=== PATIENT | male | born 1965 | race Asian ===

== ENCOUNTER 2021-04-25 15:28 | Inpatient (IN) | payer OTHER ==
[~2021-04-25] VITALS: Ht 165.1 cm; Wt 73.4 kg
[~2021-04-25 15:28] MED LIST: AMLO10CA33 PO; ASPI-394 PO; Atorvastatin Calcium PO; GLIM-5 PO; SITA100T7 PO
[2021-04-25] MEDS ORDERED: SODIUM CHLORIDE 0.9% 1,000 ML IV ONE (16:00)
[2021-04-25 16:27] LABS: Basophils # (auto) 0 10 ^3/uL (0-0.2); Basophils % (auto) 0.4 % (0.0-2.0); Eosinophils # (auto) 0.2 10 ^3/uL (0-0.8); Eosinophils % (auto) 1.9 % (0.0-7.0); Hematocrit 46.1 % (41.0-53.0); Hemoglobin 15.7 g/dL (13.5-17.5); Lymphocytes # (auto) 1.9 10 ^3/uL (0.4-5.4); Lymphocytes % (auto) 19.7 % (10.0-50.0); Mean Corpuscular Hemoglobin 27.6 pg (28.0-32.0); Mean Corpuscular Hgb Conc. 34.1 g/dL (32.0-36.0); Mean Corpuscular Volume 80.9 fL (80.0-100.0); Monocytes # (auto) 0.4 10 ^3/uL (0-1.3); Monocytes % (auto) 3.6 % (0.0-12.0); Neutrophils # (auto) 7.2 10 ^3/uL (1.6-8.6); Neutrophils % (auto) 74.4 % (37.0-80.0); Red Cell Distribution Width 14.2 % (11.8-14.3); White Blood Cell 9.7 10^3/uL (4.4-10.8)
[2021-04-25 16:45] LABS: Albumin 3.7 g/dL (3.4-5.0); Anion Gap 9 (5-15); Blood Urea Nitrogen 23 mg/dL (7-18); Calcium 9.1 mg/dL (8.5-10.1); Carbon Dioxide 26 mmol/L (21-32); Chloride 100 mmol/L (98-107); Glucose 260 mg/dL (74-106); Potassium 3.6 mmol/L (3.5-5.1); Sodium 135 mmol/L (136-145)
[2021-04-25 16:52] LABS: Alanine Aminotransferase 44 U/L (16-61); Alkaline Phosphatase 90 U/L (45-117); Aspartate Aminotransferase 23 U/L (15-37); BUN/Creatinine Ratio 18.5; Bilirubin, Total 0.7 mg/dL (0.2-1.0); GFR African American 78 mL/min; GFR Non-African American 64 mL/min
[2021-04-25] MEDS ORDERED: ACETAMINOPHEN 325 MG TAB PO ONE (17:00)
[2021-04-25 17:42] LABS: INR 1.04 (0.9-1.15); Partial Thromboplastin Time 30.7 sec (23.0-31.2)
[2021-04-25] MEDS ORDERED: NITROGLYCERIN 0.4 MG SL TAB SL PRN (18:45)
[2021-04-25] MEDS ORDERED: ACETAMINOPHEN 500 MG TAB PO PRN (18:45)
[2021-04-25] MEDS ORDERED: ONDANSETRON HCL 4 MG/2 ML VIAL IV PRN (18:45)
[2021-04-25] MEDS ORDERED: DEXTROSE (50%) 50ML SYRG IV PRN (18:45)
[2021-04-25] MEDS ORDERED: MORPHINE SULF INJ 2 MG/ML SYRINGE 1ML IV PRN (18:45)
[2021-04-25 19:18] LABS: Cholesterol 188 mg/dL (< 200)
[2021-04-25 19:21] LABS: HDL Cholesterol 38 mg/dL (40-59); LDL Cholesterol 112 mg/dL (< 100); Triglycerides 298 mg/dL (< 150)
[2021-04-25] MEDS ORDERED: CLOPIDOGREL BISULFATE 75 MG TAB PO ONE (20:30)
[2021-04-25] MEDS: ATORVASTATIN 20 MG TAB PO SCH (21:40)
[2021-04-25] MEDS ORDERED: ATORVASTATIN 20 MG TAB PO SCH (22:00)
[2021-04-25 22:23] VITALS: BP 152/92
[2021-04-25 23:30] VITALS: BP 152/92
[2021-04-25] MEDS: GABAPENTIN 100 MG CAP PO SCH (23:50)
[2021-04-25] MEDS: ACCU-CHEK COMFORT CURVE STRIP VI SCH (23:50)
[2021-04-25] MEDS: InsuLIN REG 1unit/0.01ml Soln (100units/ml) SC SCH (23:51)
[2021-04-26 05:00] VITALS: BP 137/87
[2021-04-26] MEDS: ACCU-CHEK COMFORT CURVE STRIP VI SCH ×4 (06:50→21:21)
[2021-04-26] MEDS: InsuLIN REG 1unit/0.01ml Soln (100units/ml) SC SCH ×4 (06:52→21:26)
[2021-04-26 08:01] VITALS: BP 137/87
[2021-04-26 09:00] VITALS: BP 161/78
[2021-04-26] MEDS: AMLODIPINE BESYLATE PO SCH (10:00)
[2021-04-26] MEDS ORDERED: hydrALAZINE HCL 20 MG/ML VL IV SCH (10:00)
[2021-04-26] MEDS: BENAZEPRIL PO SCH (10:00)
[2021-04-26] MEDS: ASPirin-EC 81 mg tab PO SCH (11:08)
[2021-04-26] MEDS: GABAPENTIN 100 MG CAP PO SCH ×2 (11:08→21:28)
[2021-04-26] MEDS: FAMOTIDINE 20 MG TAB PO SCH (11:08)
[2021-04-26] MEDS ORDERED: INSU100I47 SC (11:18)
[2021-04-26] MEDS ORDERED: FINA5TAB4 PO (11:18)
[2021-04-26] MEDS ORDERED: OMEP-434 PO (11:18)
[2021-04-26] MEDS ORDERED: TAMS1CAP25 PO (11:18)
[2021-04-26] MEDS ORDERED: LOSA-39 PO (11:18)
[2021-04-26] MEDS ORDERED: METF-372 PO (11:18)
[2021-04-26] MEDS ORDERED: ATOR40TA52 PO (11:18)
[2021-04-26] MEDS ORDERED: CHLO25TA2 PO (11:18)
[2021-04-26] MEDS ORDERED: hydrALAZINE HCL 20 MG/ML VL IV PRN (11:45)
[2021-04-26 13:00] VITALS: BP_SYST 143; BP_SYST 148; BP_DIAS 92
[2021-04-26 17:00] VITALS: BP_SYST 149; BP_SYST 153; BP_DIAS 83
[2021-04-26] MEDS: HYDROcodone-ACET 5/325MG TAB PO PRN (17:30)
[2021-04-26] MEDS: ATORVASTATIN 20 MG TAB PO SCH (21:28)
[2021-04-26 22:00] VITALS: BP 140/80
[2021-04-27] MEDS: HYDROcodone-ACET 5/325MG TAB PO PRN ×3 (03:35→09:34)
[2021-04-27 05:00] VITALS: BP 143/89
[2021-04-27] MEDS: ACCU-CHEK COMFORT CURVE STRIP VI SCH ×4 (06:27→21:42)
[2021-04-27] MEDS: InsuLIN REG 1unit/0.01ml Soln (100units/ml) SC SCH ×4 (06:29→21:44)
[2021-04-27 06:30] LABS: Basophils # (auto) 0 10 ^3/uL (0-0.2); Basophils % (auto) 0.4 % (0.0-2.0); Eosinophils # (auto) 0.4 10 ^3/uL (0-0.8); Hematocrit 44.2 % (41.0-53.0); Hemoglobin 15.5 g/dL (13.5-17.5); Lymphocytes # (auto) 1.9 10 ^3/uL (0.4-5.4); Lymphocytes % (auto) 20.6 % (10.0-50.0); Mean Corpuscular Hemoglobin 28.1 pg (28.0-32.0); Mean Corpuscular Hgb Conc. 35.1 g/dL (32.0-36.0); Mean Corpuscular Volume 79.9 fL (80.0-100.0); Monocytes # (auto) 0.4 10 ^3/uL (0-1.3); Monocytes % (auto) 4.3 % (0.0-12.0); Neutrophils # (auto) 6.6 10 ^3/uL (1.6-8.6); Neutrophils % (auto) 70.7 % (37.0-80.0); Nucleated Red Blood Cells % 0.1 %; Red Blood Cells 5.53 10^6/uL (4.5-5.90); Red Cell Distribution Width 13.6 % (11.8-14.3); White Blood Cell 9.4 10^3/uL (4.4-10.8)
[2021-04-27 06:42] LABS: Calcium 8.9 mg/dL (8.5-10.1); Potassium 3.6 mmol/L (3.5-5.1)
[2021-04-27 06:44] LABS: BUN/Creatinine Ratio 21.1
[2021-04-27 08:59] VITALS: BP 135/86
[2021-04-27] MEDS: GABAPENTIN 100 MG CAP PO SCH ×2 (09:32→21:42)
[2021-04-27] MEDS: ASPirin-EC 81 mg tab PO SCH (09:32)
[2021-04-27] MEDS: FAMOTIDINE 20 MG TAB PO SCH (09:33)
[2021-04-27] MEDS: AMLODIPINE BESYLATE PO SCH (09:33)
[2021-04-27] MEDS: BENAZEPRIL PO SCH (09:33)
[2021-04-27] MEDS ORDERED: LORazepam 2MG/ML-1ML VIAL IV PRN (10:30)
[2021-04-27] MEDS ORDERED: SENNA 8.6 MG TAB PO PRN (11:45)
[2021-04-27 13:00] VITALS: BP 154/96
[2021-04-27] MEDS ORDERED: CLOPIDOGREL BISULFATE 75 MG TAB PO ONE (13:30)
[2021-04-27] MEDS: MORPHINE SULF INJ 2 MG/ML SYRINGE 1ML IV PRN (13:31)
[2021-04-27 17:00] VITALS: BP 147/82
[2021-04-27 21:00] VITALS: BP 154/89
[2021-04-27] MEDS: SODIUM CHLORIDE 0.9% 1,000 ML IV SCH (21:41)
[2021-04-27] MEDS: ATORVASTATIN 20 MG TAB PO SCH (21:42)
[2021-04-28] MEDS: MORPHINE SULF INJ 2 MG/ML SYRINGE 1ML IV PRN ×2 (01:58→09:55)
[2021-04-28 05:00] VITALS: BP 147/90
[2021-04-28] MEDS: ACCU-CHEK COMFORT CURVE STRIP VI SCH ×4 (06:17→23:04)
[2021-04-28] MEDS: InsuLIN REG 1unit/0.01ml Soln (100units/ml) SC SCH ×4 (06:19→22:59)
[2021-04-28 06:43] LABS: Basophils # (auto) 0 10 ^3/uL (0-0.2); Basophils % (auto) 0.5 % (0.0-2.0); Eosinophils # (auto) 0.4 10 ^3/uL (0-0.8); Eosinophils % (auto) 4.1 % (0.0-7.0); Hematocrit 45.8 % (41.0-53.0); Hemoglobin 15.8 g/dL (13.5-17.5); Lymphocytes # (auto) 2.4 10 ^3/uL (0.4-5.4); Lymphocytes % (auto) 25.5 % (10.0-50.0); Mean Corpuscular Hgb Conc. 34.5 g/dL (32.0-36.0); Mean Corpuscular Volume 81.3 fL (80.0-100.0); Monocytes # (auto) 0.4 10 ^3/uL (0-1.3); Monocytes % (auto) 4.5 % (0.0-12.0); Neutrophils # (auto) 6.1 10 ^3/uL (1.6-8.6); Neutrophils % (auto) 65.4 % (37.0-80.0); Nucleated Red Blood Cells % 0.1 %; Red Blood Cells 5.64 10^6/uL (4.5-5.90); White Blood Cell 9.3 10^3/uL (4.4-10.8)
[2021-04-28 07:03] LABS: BUN/Creatinine Ratio 19.8; Potassium 3.8 mmol/L (3.5-5.1)
[2021-04-28 09:00] VITALS: BP 136/87
[2021-04-28] MEDS ORDERED: CLOP75TA28 PO (09:52)
[2021-04-28] MEDS: ASPirin 300 MG RECTAL SUPP PR SCH ×2 (10:00→10:44)
[2021-04-28] MEDS: FAMOTIDINE 20 MG TAB PO SCH ×2 (10:00→10:44)
[2021-04-28] MEDS: CLOPIDOGREL BISULFATE 75 MG TAB PO SCH ×2 (10:00→10:44)
[2021-04-28] MEDS: LOSARTAN POTASSIUM 50 MG TAB PO SCH (10:00)
[2021-04-28] MEDS: GABAPENTIN 100 MG CAP PO SCH ×2 (10:43→22:56)
[2021-04-28] MEDS: SODIUM CHLORIDE 0.9% 1,000 ML IV SCH (10:46)
[2021-04-28 13:00] VITALS: BP 145/87
[2021-04-28 17:00] VITALS: BP 156/101
[2021-04-28] MEDS: TAMSULOSIN HYDROCHLORIDE 0.4 MG CAP PO SCH (17:13)
[2021-04-28 22:00] VITALS: BP 145/84
[2021-04-28] MEDS: ATORVASTATIN 20 MG TAB PO SCH (22:56)
[2021-04-29] MEDS: SODIUM CHLORIDE 0.9% 1,000 ML IV SCH ×2 (00:46→12:48)
[2021-04-29] MEDS: HYDROcodone-ACET 5/325MG TAB PO PRN (02:39)
[2021-04-29 05:00] VITALS: BP 160/93
[2021-04-29] MEDS: ACCU-CHEK COMFORT CURVE STRIP VI SCH ×4 (06:44→21:25)
[2021-04-29] MEDS: InsuLIN REG 1unit/0.01ml Soln (100units/ml) SC SCH ×4 (06:56→21:25)
[2021-04-29 09:00] VITALS: BP 139/82
[2021-04-29] MEDS: FAMOTIDINE 20 MG TAB PO SCH (09:27)
[2021-04-29] MEDS: LOSARTAN POTASSIUM 50 MG TAB PO SCH (09:27)
[2021-04-29] MEDS: GABAPENTIN 100 MG CAP PO SCH ×2 (09:27→21:25)
[2021-04-29] MEDS: CLOPIDOGREL BISULFATE 75 MG TAB PO SCH (09:28)
[2021-04-29] MEDS: ASPirin 300 MG RECTAL SUPP PR SCH (09:28)
[2021-04-29 13:00] VITALS: BP 136/82
[2021-04-29 16:48] VITALS: BP 143/80
[2021-04-29] MEDS: TAMSULOSIN HYDROCHLORIDE 0.4 MG CAP PO SCH (17:02)
[2021-04-29] MEDS: ATORVASTATIN 20 MG TAB PO SCH (21:25)
[2021-04-29 22:31] VITALS: BP 124/75
[2021-04-30] MEDS: HYDROcodone-ACET 5/325MG TAB PO PRN (01:45)
[2021-04-30] MEDS: SODIUM CHLORIDE 0.9% 1,000 ML IV SCH ×2 (01:57→15:40)
[2021-04-30 05:17] VITALS: BP 137/75
[2021-04-30] MEDS: ACCU-CHEK COMFORT CURVE STRIP VI SCH ×2 (06:30→14:00)
[2021-04-30] MEDS: InsuLIN REG 1unit/0.01ml Soln (100units/ml) SC SCH ×2 (06:38→14:01)
[2021-04-30 09:00] VITALS: BP 142/87
[2021-04-30] MEDS ORDERED: ASPirin 81 mg TAB PO SCH (10:00)
[2021-04-30] MEDS: FAMOTIDINE 20 MG TAB PO SCH (10:54)
[2021-04-30] MEDS: GABAPENTIN 100 MG CAP PO SCH (10:55)
[2021-04-30] MEDS: CLOPIDOGREL BISULFATE 75 MG TAB PO SCH (10:55)
[2021-04-30] MEDS: LOSARTAN POTASSIUM 50 MG TAB PO SCH (11:03)
[2021-04-30 13:00] VITALS: BP 157/92
== END 2021-04-30 16:10 | DRG 45 ==
LOC: ER 15:28 → TELE 18:34 → TELE-CENTR 22:17
PROVIDERS: ADMIT Nurse Practitioner Acute Care; ATTEND Internal Medicine Pulmonary Disease
DX: I63.9 Cerebral infarction, unspecified (principal); E11.22 Type 2 diabetes mellitus with diabetic chronic kidney disease; E11.42 Type 2 diabetes mellitus with diabetic polyneuropathy; N18.30 Chronic kidney disease, stage 3 unspecified; I16.0 Hypertensive urgency; G81.91 Hemiplegia, unspecified affecting right dominant side; R47.81 Slurred speech; G89.29 Other chronic pain; M54.18 Radiculopathy, sacral and sacrococcygeal region; E78.5 Hyperlipidemia, unspecified; I12.9 Hypertensive chronic kidney disease with stage 1 through stage 4 chronic kidney disease, or unspecified chronic kidney disease; N40.0 Benign prostatic hyperplasia without lower urinary tract symptoms; R29.810 Facial weakness; Z20.822 Contact with and (suspected) exposure to COVID-19; Z79.02 Long term (current) use of antithrombotics/antiplatelets; Z79.4 Long term (current) use of insulin; Z79.82 Long term (current) use of aspirin; Z79.899 Other long term (current) drug therapy; Z80.1 Family history of malignant neoplasm of trachea, bronchus and lung; Z80.3 Family history of malignant neoplasm of breast; Z80.42 Family history of malignant neoplasm of prostate; Z80.8 Family history of malignant neoplasm of other organs or systems; Z81.8 Family history of other mental and behavioral disorders; Z82.0 Family history of epilepsy and other diseases of the nervous system; Z82.49 Family history of ischemic heart disease and other diseases of the circulatory system; Z82.3 Family history of stroke; Z82.62 Family history of osteoporosis; Z83.3 Family history of diabetes mellitus; Z86.73 Personal history of transient ischemic attack (TIA), and cerebral infarction without residual deficits; Z82.5 Family history of asthma and other chronic lower respiratory diseases
CPT/HCPCS: 36415; 70450; 70551; 71045; 72148; 80048; 80053; 80061; 82962; 83036; 83735; 84484; 85025; 85049; 85610; 85730; 87426; 92610; 93005; 93306; 93886; 96360; 96361; 97110; 97163; 97530; 99291; G0378; J1815

== ENCOUNTER 2023-05-26 11:12 | Emergency (ER) | payer OTHER ==
[~2023-05-26] VITALS: Ht 165.1 cm; Wt 74.0 kg
[~2023-05-26 11:12] MED LIST changes: -AMLO10CA33 PO; +AMLO1CAP56 PO; +ATOR40TA52 PO; +CHLO25TA2 PO; +CLOP75TA28 PO; +FINA5TAB4 PO; +GLIM-38 PO; -GLIM-5 PO; +INSU100I47 SC; +LOSA100T58 PO; +METF-372 PO; +OMEP-434 PO; +TAMS1CAP25 PO
[2023-05-26 11:56] LABS: Eosinophils # (auto) 0.3 10 ^3/uL (0-0.8); Lymphocytes # (auto) 2.2 10 ^3/uL (0.4-5.4); Lymphocytes % (auto) 23.4 % (10.0-50.0); Monocytes # (auto) 0.3 10 ^3/uL (0-1.3); Monocytes % (auto) 3.4 % (0.0-12.0); Neutrophils # (auto) 6.6 10 ^3/uL (1.6-8.6); Red Cell Distribution Width 15.1 % (11.8-14.3)
[2023-05-26 11:58] LABS: Basophils # (auto) 0 10 ^3/uL (0-0.2); Basophils % (auto) 0.3 % (0.0-2.0); Eosinophils % (auto) 2.9 % (0.0-7.0); Hematocrit 42.1 % (41.0-53.0); Hemoglobin 13.9 g/dL (13.5-17.5); Mean Corpuscular Hemoglobin 26.7 pg (28.0-32.0); Mean Corpuscular Volume 80.9 fL (80.0-100.0); Nucleated Red Blood Cells % 0.1 %; White Blood Cell 9.4 10^3/uL (4.4-10.8)
[2023-05-26 12:13] LABS: Partial Thromboplastin Time 34.7 SEC (24.5-34.5)
[2023-05-26 12:19] LABS: Albumin 3.7 g/dL (3.4-5.0); Calcium 9.1 mg/dL (8.5-10.1); Magnesium 2.6 mg/dL (1.6-2.6); Potassium 4.1 mmol/L (3.5-5.1)
[2023-05-26 12:35] LABS: BUN/Creatinine Ratio 23.7 (10.0-20.0); Bilirubin, Total 0.5 mg/dL (0.2-1.0); Total Protein 7.7 g/dL (6.4-8.2)
[2023-05-26] MEDS ORDERED: SODIUM CHLORIDE 0.9% 1,000 ML IV ONE (13:15)
[2023-05-26] MEDS ORDERED: CYCLOBENZAPRINE HCL 10 MG TAB PO ONE (13:15)
[2023-05-26] MEDS ORDERED: DexAMETHasone SOD PHOS 10MG/1ML VIAL INJ IV ONE (13:15)
[2023-05-26 14:13] LABS: Urine WBC None Seen /hpf (0 - 3)
[2023-05-26 14:26] LABS: Urine Bacteria NONE SEEN /hpf (None Seen); Urine Blood Negative /uL (Negative); Urine Specific Gravity 1.017 (1.001-1.035)
[2023-05-26] MEDS ORDERED: CYCL-614 PO (14:34)
[2023-05-26] MEDS ORDERED: PRED20TA2 PO (14:34)
[2023-05-26 15:20] VITALS: BP 156/55; PULSE 82; RESP 20; TEMP 98.2; O2SAT 95
== END 2023-05-26 15:39 | disposition home or self-care (01) ==
LOC: ER 11:12
DX: M54.2 Cervicalgia (principal); G62.9 Polyneuropathy, unspecified; E11.9 Type 2 diabetes mellitus without complications; E78.5 Hyperlipidemia, unspecified; I10 Essential (primary) hypertension; Z79.899 Other long term (current) drug therapy; Z86.73 Personal history of transient ischemic attack (TIA), and cerebral infarction without residual deficits; Z79.84 Long term (current) use of oral hypoglycemic drugs; Z79.82 Long term (current) use of aspirin
CPT/HCPCS: 36415; 70450; 71045; 72125; 80053; 81001; 82962; 83735; 83880; 84484; 85025; 85610; 85730; 93005; 96361; 96374; 99285; J1100; J7030

== ENCOUNTER 2024-10-13 19:26 | Inpatient (IN) | payer MEDICARE, OTHER ==
[~2024-10-13] VITALS: Ht 165.1 cm; Wt 70.4 kg
[~2024-10-13 19:26] MED LIST changes: +CYCL-614 PO; +LOSA-535 PO; -LOSA100T58 PO; +PRED20TA2 PO
--- NOTE | 2024-10-13 19:46 | ECG ---
[facility] Test Date: 2024-10-13 Test Time: 19:40:10 Pat Name: YANIRA CARDENAS Department: ED Room: [address] [place] [address] Gender: M Net Manager: KEYUR : 1965 Requested By: BECCA MIRANDA Order Number: [id number] Reading MD: Paolo Silver Measurements Intervals [place] Rate: 113 P: 10 DC: 145 QRS: 25 QRSD: 80 T: 35 QT: 361 QTc: 495 Interpretive Statements Sinus tachycardia Low voltage, extremity and precordial leads Anteroseptal infarct, old Electronically Signed On 10-18-2024 10:02:03 PST by Paolo Silver Please click the below link to view image of tracing.
--- NOTE | 2024-10-13 20:42 | DVH ---
CHEST RADIOGRAPH Indication: SOB Technique: Single frontal view of the chest was obtained Comparison: XY CHEST XRAY 1 VIEW on DOS: 05/26/23 Findings/ IMPRESSION: Moderate cardiomegaly. Left basilar atelectasis with developing airspace disease not excluded.
--- NOTE | 2024-10-13 20:47 | DVH ---
Exam: CT CT AB PEL WO CON-NO ORAL OR IV History: Abdominal pain Comparison Study: None available at time of dictation. TECHNIQUE: Multidetector CT of the abdomen was performed from lung bases to pubic symphysis. Imaging was performed without IV contrast. Axial, coronal and sagittal multiplanar reformats were obtained fr om the axial data set by the technologist. Radiation Dose Information: CT Dose: CTDI volume is 6.71 mGy. Dose-length product is 395.0 mGy*cm FINDINGS: Evaluation of solid organs is limited due to lack of intravenous contrast use. Findings: Lung Bases: No acute or significant lung base finding. Normal heart size. Large pericardial effusion . Calcified coronary arteries. Liver: The liver is normal in size. No focal lesions. Gallbladder and Biliary Tree: Unremarkable Spleen: Unremarkable Pancreas: The pancreas is grossly normal in appearance. Adrenal Glands: Unremarkable Kidneys: Kidneys are grossly normal without calculi or hydronephrosis. Bladder: Grossly unremarkable for degree of distention. Bowel: The stomach is grossly normal in appearance. Small bowel and colon are normal in caliber and d istribution. The appendix is not visualized; however, no secondary findings of acute appendicitis id entified. Ascites: Absent Lymphadenopathy: No mesenteric, retroperitoneal or periportal lymphadenopathy. Abdominal Wall and Mesentery: Unremarkable. Vasculature: The visualized abdominal aorta is normal in size and caliber. Evaluation of abdominal a nd pelvic vessels is limited due to lack of intravenous contrast. Pelvic Organs: Unremarkable Musculoskeletal: No aggressive focal bony lesions, acute fractures or dislocation. Soft tissues: Unremarkable IMPRESSION: 1. Large pericardial effusion. 2. Calcified coronary arteries. 3. No CT findings suggest bowel obstruction. Radiation optimization: All CT scans at this facility use at least one of these dose optimization te chniques: automated exposure control mA and/or kV adjustment per patient size (includes targeted exa ms where dose is matched to clinical indication) or iterative reconstruction.
--- NOTE | 2024-10-13 20:53 | ED.PDOC ---
SOB-HPI HPI Comments 59-year-old male with past medical history pertinent for HTN, DM, CVA, hyp erlipidemia, presents to ED for shortness of breath x2 days, associated with cough, headache, epigastric pain, fatigue, fever, chills. Patient denies any chest pain, nausea, vomiting, diarrhea. He denies any recent sick contacts. Patient reports that his shortness of breath is worse when laying down at nighttime. No alleviating or aggravating factors. Chief Complaint: Shortness of Breath Time Seen by MD: 19:32 Primary Care Provider: ? Reviewed notes: Nurses Notes, Medications, Allergies Mode of Arrival: Wheelchair Past Medical History PAST MEDICAL HISTORY: CVA, DM, High Lipids, HTN, TIA Surgical History: Denies all surgeries Family History Family History: Unobtainable Social History Smoker: Non-Smoker Alcohol: Denies ETOH Use Drugs: Denies Drug Use Lives In: Home Constitutional: reports: chills, fatigue, fever; denies: diaphoresis, malaise, sweats, weakness, others EENTM: denies: blurred vision, double vision, ear bleeding, ear discharge, ear drainage, ear pain, ear ringing, eye pain, eye redness, hearing loss, mouth pain, mouth swelling, nasal discharge, nose bleeding, nose congestion, nose pain, photophobia, tearing, throat pain, throat swelling, voice changes, others Respiratory: reports: cough, shortness of breath; denies: hemoptysis, orthopnea, SOB at rest, SOB with excertion, stridor, wheezing, others Cardiovascular: denies: chest pain, dizzy spells, diaphoresis, Dyspnea on exertion, edema, irregular heart beat, left arm pain, lightheadedness, palpitations, PND, syncope, others Gastrointestinal: reports: abdominal pain; denies: abdomen distended, blood streaked bowels, constipated, diarrhea, dysphagia, difficulty swallowing, hematemesis, melena, nausea, poor appetite, poor fluid intake, rectal bleeding, rectal pain, vomiting, others Genitourinary: denies: burning, dysuria, flank pain, frequency, hematuria, incontinence, penile discharge, penile sore, pain, testicle pain, testicle swelling, urgency, others Neurological: denies: dizziness, fainting, headache, left sided numbness, left sided weakness, numbness, paresthesia, pre-existing deficit, right sided numbne ss, right sided weakness, seizure, speech problems, tingling, tremors, weakness, others Musculoskeletal: denies: back pain, gout, joint pain, joint swelling, muscle pain, muscle stiffness, neck pain, others Integumetry: denies: bruises, change in color, change in hair/nails, dryness, laceration, lesions, lumps, rash, wounds, others Allergic/Immunocompromised: denies: Difficulty Healing, Frequent Infections, Hives, Itching, others Hematologic/Lymphatic: denies: anemia, blood clots, easy bleeding, easy bruising, swollen glands, others Endocrine: denies: excessive hunger, excessive sweating, excessive thirst, excessive urination, flushing, intolerance to cold, intolerance to heat, unexplained weight gain, unexplained weight loss, others Psychiatric: denies: anxiety, bipolar disorder, depression, hopeless, panic disorder, schizophrenia, sleepless, suicidal, others All Other Systems: Reviewed and Negative Physical Exam General Appearance: Mild Distress, Normal HEENT: Normal ENT Inspection, Pharynx Normal, TMs Normal Neck: Full Range of Motion, Non-Tender, Normal, Normal Inspection Respiratory: Chest Non-Tender, No Accessory Muscle Use, No Respiratory Distress, Other (Decreased breath sounds to the left.) Cardiovascular: No Edema, No JVD, No Murmur, No Gallop, Normal Peripheral Pulses, Regular Rate/Rhythm Breast Exam: Deferred Gastrointestinal: No Organomegaly, No Pulsatile Mass, Normal Bowel Sounds, Soft, Tenderness (Tenderness to palpation to the epigastric region.) Genitalia: Deferred Pelvic: Deferred Rectal: Deferred Extremities: No calf tenderness, Normal capillary refill, Normal inspection, Normal range of motion, Non-tender, No pedal edema Musculoskeletal : Apperance: Normal Neurologic: Alert, emergency medicine physician assistant II-XII nml as Tested, No Motor Deficits, Normal Affect, Normal Mood, No Sensory Deficits Cerebellar Function: Normal Reflexes: Normal Skin: Dry, Normal Color, Warm Lymphatic: No Adenopathy Was a procedure done? Was a procedure done?: No Differential Dx Differential Diagnosis: Bronchitis, CHF, COPD, Pneumonia, Respiratory Distress, URI X-Ray, Labs, Meds, VS Vital Signs Date Time Temp Pulse Resp B/P (MAP) Pulse Ox O2 Delivery O2 Flow Rate FiO2 12/15/24 22:12 114 10/13/24 22:12 97.5 114 29 150/98 (115) 96 97.5 10/13/24 19:46 18 96 Room Air* 0 21 10/13/24 19:41 97.5 110 18 153/94 (113) 96 10/13/24 19:40 113 Lab Test 10/13/24 21:35 10/13/24 20:37 Range/Units Troponin I High Sensitivity 20 18 </=54 ng/L White Blood Count 9.6 4.4-10.8 10^3/uL Red Blood Count 5.12 4.5-5.90 10^6/uL Hemoglobin 13.7 13.5-17.5 g/dL Hematocrit 41.7 41.0-53.0 % Mean Corpuscular Volume 81.5 80.0-100.0 fL Mean Corpuscular Hemoglobin 26.7 L 28.0-32.0 pg Mean Corpuscular Hemoglobin Concent 32.8 32.0-36.0 g/dL Red Cell Distribution Width 17.8 H 11.8-14.3 % Platelet Count 222 140-450 10^3/uL Mean Platelet Volume 9.0 6.9-10.8 fL Neutrophils (%) (Auto) 86.0 H 37.0-80.0 % Lymphocytes (%) (Auto) 10.9 10.0-50.0 % Monocytes (%) (Auto) 2.6 0.0-12.0 % Eosinophils (%) (Auto) 0.3 0.0-7.0 % Basophils (%) (Auto) 0.2 0.0-2.0 % Neutrophils # (Auto) 8.3 1.6-8.6 10 ^3/uL Lymphocytes # (Auto) 1.1 0.4-5.4 10 ^3/uL Monocytes # (Auto) 0.2 0-1.3 10 ^3/uL Eosinophils # (Auto) 0 0-0.8 10 ^3/uL Basophils # (Auto) 0 0-0.2 10 ^3/uL Nucleated Red Blood Cells 0.0 % Sodium Level 134 L 136-145 mmol/L Potassium Level 4.4 3.5-5.1 mmol/L Chloride Level 103 98-107 mmol/L Carbon Dioxide Level 23 20-31 mmol/L Anion Gap 8 5-15 Blood Urea Nitrogen 27 H 9-23 mg/dL Creatinine 2.02 H 0.700-1.30 mg/dL Glomerular Filtration Rate Calc 37 >90 mL/min BUN/Creatinine Ratio 13.4 10.0-20.0 Serum Glucose 293 H 74-106 mg/dL Calcium Level 9.9 8.7-10.4 mg/dL Total Bilirubin 0.5 0.2-1.0 mg/dL Aspartate Amino Transferase (AST) 28 13-40 U/L Alanine Aminotransferase (ALT) 39 7-40 U/L Alkaline Phosphatase 128 H 46-116 U/L B-Type Natriuretic Peptide 168.12 0-100 pg/mL Total Protein 7.4 5.7-8.2 g/dL Albumin 4.3 3.2-4.8 g/dL Lipase 64 H 12-53 U/L Current Medications Medications (Trade) Dose Ordered Sig/Naveen Route Start Time Stop Time Status Last Admin Acetaminophen/ Hydrocodone Bitart ([place] 5/325MG Tab) 1 tab ONCE ONCE PO 10/13/24 22:00 10/13/24 22:03 DC 10/13/24 22:19 X-Ray, Labs, Meds, VS Comment CXR IMPRESSION: Moderate cardiomegaly. Left basilar atelectasis with developing airspace disease not excluded. CT IMPRESSION: 1. Large pericardial effusion. 2. Calcified coronary arteries. 3. No CT findings suggest bowel obstruction. MDM: Patient with history as above presented with shortness of breath. History obtained from patient. Patient was nontoxic, stable, afebrile, in wheelchair, mild distress. Exam as above. Labs reviewed. CBC was unremarkable. No leukocytosis. No anemia. CMP showed mildly decreased sodium at 134. BUN elevated at 27. Creatinine elevated at 168.12 BNP elevated at 168.12. Lipase elevated at 64. Troponin x1 was negative. Independently reviewed imaging. Chest x-ray showed cardiomegaly with left basilar atelectasis versus airspace disease. CT abdomen/pelvis showed a large large pericardial effusion. No acute abdominal findings. Reviewed external records. All findings were discussed with the patient. Differential diagnosis considered. Overall presentation is consistent with MARIBEL, pericardial effusion, and possible pancreatitis. Low suspicion for pulmonary embolism, pneumonia, ACS. Ordered [place] for the patient in the ED. Patient placed on continuous EKG monitoring, continuous pulse oximetry, and peripheral intravenous access. Patient will be admitted to the hospital for pericardial effusion, acute MARIBEL, pancreatitis. Cardiology consult has been placed for large pericardial effusion. Disposition: Admit This medical document was created using the Eversight dictation system. Although this document has been carefully reviewed, there may still be some phonetic and typographical errors, which are due to imperfections of the software program, and do not reflect any compromise in the patient's medical care. Time of 1ST Reevaluation: 21:57 Reevaluation 1ST: Improved Patient Education/Counseling: Diagnosis, Treatment, Prognosis, Need For Follow Up Family Education/Counseling: Diagnosis, Treatment, Prognosis, Need For Follow Up Departure 1 Departure Time of Disposition: 21:58 Impression: Primary Impression: Pericardial effusion Additional Impressions: Pancreatitis Qualified Codes: K85.90 - Acute pancreatitis without necrosis or infection, unspecified MARIBEL (acute kidney injury) Disposition: 09 ADMITTED INPATIENT Condition: Fair Critical Care Note Critical Care Time?: No Stability Stability form required: No Heart Score Heart Score: Heart Score Response (Comments) Value History N/A 0 EKG N/A 0 Age N/A 0 Risk Factors N/A 0 Troponin N/A 0 Total 0 BECCA MIRANDA PAC Oct 13, 2024 20:53
[2024-10-13 20:57] LABS: Basophils # (auto) 0 10 ^3/uL (0-0.2); Basophils % (auto) 0.2 % (0.0-2.0); Eosinophils # (auto) 0 10 ^3/uL (0-0.8); Eosinophils % (auto) 0.3 % (0.0-7.0); Lymphocytes # (auto) 1.1 10 ^3/uL (0.4-5.4); Lymphocytes % (auto) 10.9 % (10.0-50.0); Monocytes # (auto) 0.2 10 ^3/uL (0-1.3)
[2024-10-13 20:58] LABS: Hematocrit 41.7 % (41.0-53.0); Hemoglobin 13.7 g/dL (13.5-17.5); Mean Corpuscular Hemoglobin 26.7 pg (28.0-32.0); Mean Corpuscular Hgb Conc. 32.8 g/dL (32.0-36.0); Mean Corpuscular Volume 81.5 fL (80.0-100.0); Monocytes % (auto) 2.6 % (0.0-12.0); Neutrophils # (auto) 8.3 10 ^3/uL (1.6-8.6); Platelet Count (auto) 222 10^3/uL (140-450); Red Blood Cells 5.12 10^6/uL (4.5-5.90); Red Cell Distribution Width 17.8 % (11.8-14.3); White Blood Cell 9.6 10^3/uL (4.4-10.8)
[2024-10-13 21:07] LABS: Alanine Aminotransferase 39 U/L (7-40); Albumin 4.3 g/dL (3.2-4.8); Anion Gap 8 (5-15); Aspartate Aminotransferase 28 U/L (13-40); BUN/Creatinine Ratio 13.4 (10.0-20.0); Calcium 9.9 mg/dL (8.7-10.4); Carbon Dioxide 23 mmol/L (20-31); Chloride 103 mmol/L (98-107); Potassium 4.4 mmol/L (3.5-5.1)
[2024-10-13 21:08] LABS: Bilirubin, Total 0.5 mg/dL (0.2-1.0); Total Protein 7.4 g/dL (5.7-8.2)
[2024-10-13 21:09] LABS: Alkaline Phosphatase 128 U/L (46-116); Blood Urea Nitrogen 27 mg/dL (9-23); Glucose 293 mg/dL (74-106); Sodium 134 mmol/L (136-145)
[2024-10-13 21:25] LABS: Lipase 64 U/L (12-53)
[2024-10-13] MEDS ORDERED: MORPHINE SULFATE 4 MG/ML SYR/VIAL IV ONE (21:45)
[2024-10-13] MEDS ORDERED: ONDANSETRON HCL 4 MG/2 ML VIAL IV ONE (21:45)
[2024-10-13 22:12] VITALS: PULSE 114
[2024-10-13] MEDS: HYDROcodone-ACET 5/325MG TAB PO ONE (22:19)
[2024-10-13] MEDS ORDERED: DEXTROSE (50%) 50ML SYRG IV PRN (22:45)
[2024-10-13] MEDS ORDERED: ONDANSETRON HCL 4 MG/2 ML VIAL IV PRN (22:45)
[2024-10-13] MEDS ORDERED: ACETAMINOPHEN 325 MG TAB PO PRN (22:45)
[2024-10-13 23:04] VITALS: BP 150/98; PULSE 114; RESP 24; TEMP 97.5; O2SAT 97
[2024-10-13] MEDS: ACCU-CHEK COMFORT CURVE STRIP VI SCH (23:54)
[2024-10-13] MEDS: InsuLIN REG 1unit/0.01ml Soln (100units/ml) SC SCH (23:55)
[2024-10-14] VITALS (15 sets, daily range): BP systolic 99–126; BP diastolic 74–81; PULSE 105–113; RESP 17–27; TEMP 97.9; O2SAT 94–100
[2024-10-14] MEDS: ALBUTEROL SULF 2.5 MG/0.5ML(0.5%) NEB SOLN NEB PRN (00:07)
--- NOTE | 2024-10-14 04:14 | DVHHP2 ---
History of Present Illness Reason for Visit: Shortness of breath History of Present Illness 59-year-old male presents for evaluation of shortness for breath. Patient reports a two day history of unprovoked shortness for breath with associated fatigue. Denies chest pain or palpitations. Denies fever or chills. Patient reports symptoms becoming worse when laying down. Past Medical History Dyslipidemia, hypertension, diabetes mellitus, CVA Past Surgical History Denies Family History Noncontributory Smoke: No ALCOHOL: none Drugs: None Lives: with Family Review of Systems Review of Systems Review of systems are currently negative otherwise addressed in HPI. Allergies: Coded Allergies: NO KNOWN ALLERGIES (Unverified , 04/25/21) Medications Current Medications Medications Dose Ordered Sig/Naveen Route Start Time Stop Time Status Last Admin Dose Admin Amlodipine Besylate 5 mg DAILY PO 10/14/24 10:00 Aspirin 81 mg DAILY PO 10/14/24 10:00 Atorvastatin Calcium 40 mg HS PO 10/14/24 22:00 Clopidogrel Bisulfate 75 mg DAILY PO 10/14/24 10:00 Albuterol 2.5 mg Q6HPRN PRN NEB 10/13/24 22:45 10/14/24 00:07 2.5 MG Diagnostic Test (Pha) 1 strip Q6HR 10/14/24 00:00 10/13/24 23:54 1 STRIP Insulin Human Regular Q6HR SC 10/14/24 00:00 10/13/24 23:55 6 UNITS Dextrose 50 ml UD PRN IV 10/13/24 22:45 Ondansetron HCl 4 mg Q4HP PRN IV 10/13/24 22:45 Acetaminophen 650 mg Q6HP PRN PO 10/13/24 22:45 Exam Vital Signs Vital Signs Date Time Temp Pulse Resp B/P (MAP) Pulse Ox O2 Delivery O2 Flow Rate FiO2 10/14/24 00:13 107 20 99 10/14/24 00:07 Room Air 10/14/24 00:07 0 21 10/14/24 00:00 141/97 (112) 10/13/24 23:04 97.5 97.5 Exam Gen: 59-year-old male in mild distress Skin: Warm, dry, normal color and texture, no rash. HEENT: Normocephalic atraumatic, mucous membranes moist and pink. Neck: Cervical and supraclavicular nodes normal without enlargement, trachea is midline, thyroid gland is normal without masses. Pulmonary: Clear to auscultation and percussion bilaterally. Cardiac: Regular rate and rhythm. No murmur Abdomen: Soft, nontender, nondistended, bowel sounds present all 4 quadrants, no guarding, no rigidity, no organomegaly. Extremities: No cyanosis, clubbing, no edema Neuro: Cranial nerves II through XII grossly intact, normal affect and speech, no focal motor deficits. Labs/Xrays ORDERING PHYSICIAN: BECCA MIRANDA PAC PROCEDURE(s): ABPL - CT AB PEL WO CON-NO ORAL OR IV REASON: Abdominal pain ORDER NUMBER(s): [id number], ACCESSION NUMBER(s): [id number] Exam: CT CT AB PEL WO CON-NO ORAL OR IV History: Abdominal pain Comparison Study: None available at time of dictation. TECHNIQUE: Multidetector CT of the abdomen was performed from lung bases to pubic symphysis. Imaging was performed without IV contrast. Axial, coronal and sagittal multiplanar reformats were obtained from the axial data set by the technologist. Radiation Dose Information: CT Dose: CTDI volume is 6.71 mGy. Dose-length product is 395.0 mGy*cm FINDINGS: Evaluation of solid organs is limited due to lack of intravenous contrast use. Findings: Lung Bases: No acute or significant lung base finding. Normal heart size. Large pericardial effusion. Calcified coronary arteries. Liver: The liver is normal in size. No focal lesions. Gallbladder and Biliary Tree: Unremarkable Spleen: Unremarkable Pancreas: The pancreas is grossly normal in appearance. Adrenal Glands: Unremarkable Kidneys: Kidneys are grossly normal without calculi or hydronephrosis. Bladder: Grossly unremarkable for degree of distention. Bowel: The stomach is grossly normal in appearance. Small bowel and colon are normal in caliber and distribution. The appendix is not visualized; however, no secondary findings of acute appendicitis identified. Ascites: Absent Lymphadenopathy: No mesenteric, retroperitoneal or periportal lymphadenopathy. Abdominal Wall and Mesentery: Unremarkable. Vasculature: The visualized abdominal aorta is normal in size and caliber. Evaluation of abdominal and pelvic vessels is limited due to lack of intravenous contrast. Pelvic Organs: Unremarkable Musculoskeletal: No aggressive focal bony lesions, acute fractures or dislocation. Soft tissues: Unremarkable IMPRESSION: 1. Large pericardial effusion. 2. Calcified coronary arteries. 3. No CT findings suggest bowel obstruction. Radiation optimization: All CT scans at this facility use at least one of these dose optimization techniques: automated exposure control mA and/or kV adjustment per patient size (includes targeted exams where dose is matched to clinical indication) or iterative reconstruction. RING PHYSICIAN: BECCA MIRANDA PAC PROCEDURE(s): CXR1 - CHEST XRAY 1 VIEW REASON: SOB ORDER NUMBER(s): [id number], ACCESSION NUMBER(s): [id number] CHEST RADIOGRAPH Indication: SOB Technique: Single frontal view of the chest was obtained Comparison: XY CHEST XRAY 1 VIEW on DOS: 05/26/23 Findings/ IMPRESSION: Moderate cardiomegaly. Left basilar atelectasis with developing airspace disease not excluded. Labs Test 10/13/24 23:49 10/13/24 23:30 10/13/24 20:37 Range/Units POC Glucose 282 H 70-106 mg/dl Troponin I High Sensitivity 21 </=54 ng/L White Blood Count 9.6 4.4-10.8 10^3/uL Red Blood Count 5.12 4.5-5.90 10^6/uL Hemoglobin 13.7 13.5-17.5 g/dL Hematocrit 41.7 41.0-53.0 % Mean Corpuscular Volume 81.5 80.0-100.0 fL Mean Corpuscular Hemoglobin 26.7 L 28.0-32.0 pg Mean Corpuscular Hemoglobin Concent 32.8 32.0-36.0 g/dL Red Cell Distribution Width 17.8 H 11.8-14.3 % Platelet Count 222 140-450 10^3/uL Mean Platelet Volume 9.0 6.9-10.8 fL Neutrophils (%) (Auto) 86.0 H 37.0-80.0 % Lymphocytes (%) (Auto) 10.9 10.0-50.0 % Monocytes (%) (Auto) 2.6 0.0-12.0 % Eosinophils (%) (Auto) 0.3 0.0-7.0 % Basophils (%) (Auto) 0.2 0.0-2.0 % Neutrophils # (Auto) 8.3 1.6-8.6 10 ^3/uL Lymphocytes # (Auto) 1.1 0.4-5.4 10 ^3/uL Monocytes # (Auto) 0.2 0-1.3 10 ^3/uL Eosinophils # (Auto) 0 0-0.8 10 ^3/uL Basophils # (Auto) 0 0-0.2 10 ^3/uL Nucleated Red Blood Cells 0.0 % Sodium Level 134 L 136-145 mmol/L Potassium Level 4.4 3.5-5.1 mmol/L Chloride Level 103 98-107 mmol/L Carbon Dioxide Level 23 20-31 mmol/L Anion Gap 8 5-15 Blood Urea Nitrogen 27 H 9-23 mg/dL Creatinine 2.02 H 0.700-1.30 mg/dL Glomerular Filtration Rate Calc 37 >90 mL/min BUN/Creatinine Ratio 13.4 10.0-20.0 Serum Glucose 293 H 74-106 mg/dL Calcium Level 9.9 8.7-10.4 mg/dL Total Bilirubin 0.5 0.2-1.0 mg/dL Aspartate Amino Transferase (AST) 28 13-40 U/L Alanine Aminotransferase (ALT) 39 7-40 U/L Alkaline Phosphatase 128 H 46-116 U/L B-Type Natriuretic Peptide 168.12 0-100 pg/mL Total Protein 7.4 5.7-8.2 g/dL Albumin 4.3 3.2-4.8 g/dL Lipase 64 H 12-53 U/L Assessment/Plan Assessment/Plan Assessment Large pleural effusion Diabetes mellitus Hypertension Acute on chronic renal failure Plan Admit the patient to telemetry to the hospitalist Cardiology consultation placed by ER provider Radiology consult Nephrology consultation Resume home medications Continue treatment per orders. Plan discussed with: Patient My Orders Orders - DIEGO HARPER AGACNP Procedure Category Date Status Time *Dr. Rodriguez Group CONS 10/13/24 Transmitted -[place] 22:41 * Radiologist Consult CONS 10/13/24 Transmitted 22:41 Amlodipine Tablet PHA 10/14/24 In Process (Norvasc Tablet) 10:00 Aspirin Tablet PHA 10/14/24 In Process 10:00 Atorvastatin (Lipitor) PHA 10/14/24 In Process 22:00 Clopidogrel Bisulfate PHA 10/14/24 In Process (Plavix) 10:00 Consistent DIET 10/14/24 Transmitted Carb(Ccho)Diabetes Breakfast Albuterol Medneb PHA 10/13/24 In Process (Ventolin Medneb) 22:45 Basic Metabolic Panel LAB 10/14/24 Logged 04:00 Glucose Blood PHA 10/14/24 In Process (Accu-Chek Comfort 00:00 Insulin R (Human) PHA 10/14/24 In Process (Insulin R) 00:00 Dextrose 50% Syringe PHA 10/13/24 In Process 22:45 Admit ADMIT 10/13/24 Transmitted 22:41 Ondansetron Hcl PHA 10/13/24 In Process (Zofran) 22:45 Echo 2d Mode Cardiac US 10/13/24 Logged DOP 22:41 Condition: Stable GAETANO 10/13/24 In Process 22:41 Acetaminophen Tablet PHA 10/13/24 In Process (Tylenol Tablet) 22:45 Bedrest With Bathroom GAETANO 10/13/24 In Process Privileg 22:41 Date of Service: Oct 13, 2024 Billing Provider: DIEGO HARPER Common Visit Codes: [id number] INP/OBS CARE (HIGH) DIEGO HARPER Oct 14, 2024 04:14
[2024-10-14 04:36] LABS: Chloride 105 mmol/L (98-107); Potassium 4.1 mmol/L (3.5-5.1)
[2024-10-14 04:37] LABS: Anion Gap 10 (5-15); Calcium 9.7 mg/dL (8.7-10.4); Carbon Dioxide 20 mmol/L (20-31)
[2024-10-14 04:42] LABS: BUN/Creatinine Ratio 13.7 (10.0-20.0)
[2024-10-14 04:48] LABS: Blood Urea Nitrogen 25 mg/dL (9-23); Glucose 219 mg/dL (74-106); Sodium 135 mmol/L (136-145)
[2024-10-14] MEDS: HYDROcodone-ACET 5/325MG TAB PO PRN (07:02)
[2024-10-14] MEDS: INSULIN LANTUS (GLARGINE) 1 /0.01ml (100units/ml) SC ONE (09:18)
[2024-10-14] MEDS ORDERED: ASPirin 81 mg TAB PO SCH (10:00)
[2024-10-14] MEDS ORDERED: CLOPIDOGREL BISULFATE 75 MG TAB PO SCH (10:00)
--- NOTE | 2024-10-14 10:14 | DVHINCON2 ---
Date of service: Oct 14, 2024 Referring Physician Sebastian Ruiz, nurse practitioner Reason for Consultation Acute kidney injury History of Present Illness Patient is a 59-year-old male with past medical history significant fo CVA, DM, High Lipids, HTN, and TIA is admitted for shortness of breath for two days. On admission patient found to have elevated BUN creatinine nephrology is consulted for acute kidney injury Past Medical History PAST MEDICAL HISTORY: CVA, DM, High Lipids, HTN, TIA, gout, Chronic Kidney Disease stage IIIB Past Surgical History Surgical History: Denies all surgeries Allergies: Coded Allergies: NO KNOWN ALLERGIES (Unverified , 04/25/21) Home Meds Active Scripts Cyclobenzaprine HCl (Cyclobenzaprine Hydrochlo) 5 Mg Tab, 5 MG PO Q8HPRN PRN, #14 TAB Prov:ANTELMO LO MD 05/26/23 Prednisone (Prednisone) 20 Mg Tab, 60 MG PO DAILY, #15 MG Prov:ANTELMO LO MD 05/26/23 Clopidogrel Bisulfate (Plavix) 75 Mg Tab, 75 MG PO DAILY for 30 Days, #30 TAB Prov:CARL PARKER MD 04/28/21 Aspirin (Aspir-Low Ec) 81 Mg Tb, 81 MG PO DAILY, #30 TAB Prov:DAVID HIGUERA M.D. 08/06/14 Glimepiride (Glimepiride) 1 Mg Tab, 1 MG PO DAILY, #30 TAB Prov:DAVID HIGUERA M.D. 08/06/14 [Atorvastatin Calcium] 20 MG TB No Conflict Check, 20 MG PO HS, #30 TAB Prov:DAVID HIGUERA M.D. 08/06/14 Reported Medications Losartan Potassium (Losartan Potassium) 100 Mg Tab, 1 TAB PO DAILY, #30 TAB 5 Refills 04/26/21 Insulin NPH (Human) (Isophane) (Novolin N Flexpen) 100 Unit/Ml Inj, 100 UNIT SC, INJ 04/26/21 Atorvastatin Calcium (ATORVASTATIN CALCIUM) 40 Mg Tab, 1 TAB PO DAILY, #30 TAB 5 Refills 04/26/21 Omeprazole Magnesium (Omeprazole) 20 Mg Tab, 20 MG PO DAILYPRN, TAB 04/26/21 Metformin Hydrochloride (Metformin Hcl) 1,000 Mg Tab, 1 TAB PO BID, #60 TAB 5 Refills 04/26/21 Chlorthalidone (Chlorthalidone) 25 Mg Tab, 25 MG PO DAILY, TAB 04/26/21 Finasteride (Finasteride) 5 Mg Tab, 1 TAB PO DAILY, #30 TAB 11 Refills 04/26/21 Tamsulosin HCl (Tamsulosin Hydrochloride) 0.4 Mg Cap, 0.4 MG PO DAILY, CAP 04/26/21 Amlodipine Besylate-Benazepril (AMLODIPINE BESYLATE/BENAZ) 1 Cap Cap, 1 CAP PO DAILY, #30 CAP 5 Refills 08/04/14 Sitagliptin Phosphate (Januvia) 100 Mg Tab, 1 TAB PO DAILY, #30 TAB 5 Refills 08/04/14 Current Medications Current Medications Medications (Trade) Dose Ordered Sig/Naveen Route PRN Reason Start Time Stop Time Status Last Admin Amlodipine Besylate (Norvasc Tablet) 5 mg DAILY PO 10/14/24 10:00 10/14/24 10:21 Aspirin 81 mg DAILY PO 10/14/24 10:00 Hold Atorvastatin Calcium (Lipitor) 40 mg HS PO 10/14/24 22:00 Clopidogrel Bisulfate (Plavix) 75 mg DAILY PO 10/14/24 10:00 Hold Albuterol (Ventolin Medneb) 2.5 mg Q6HPRN PRN NEB SHORTNESS OF BREATH 10/13/24 22:45 10/14/24 00:07 Diagnostic Test (Pha) (Accu-Chek Comfort Curve T) 1 strip Q6HR 10/14/24 00:00 10/14/24 05:59 Insulin Human Regular (InsuLIN R) Q6HR SC 10/14/24 00:00 10/14/24 06:00 Dextrose 50 ml UD PRN IV Blood Sugar LESS THAN 60 10/13/24 22:45 Ondansetron HCl (Zofran) 4 mg Q4HP PRN IV NAUSEA / VOMITING 10/13/24 22:45 Acetaminophen (Tylenol Tablet) 650 mg Q6HP PRN PO PAIN SCALE 1-3 OR TEMP>100.4 10/13/24 22:45 Acetaminophen/ Hydrocodone Bitart ([place] 5/325MG Tab) 1 tab Q4HPRN PRN PO MODERATE PAIN (4-6 PAIN SCALE) 10/14/24 07:00 10/14/24 07:02 Family History: Family history: Hypertension G8 MOTHER, , Cause: HTN (hypertension) Stroke No Family History of: Cancer Cancer of colon Chronic obstructive lung disease (situation) Family history: Alzheimer's disease Family history: Arthritis Family history: Asthma Family history: Autoimmune disease (situation) Family history: Blood disorder Family history: Cardiovascular disease Family history: Congenital anomaly Family history: Coronary thrombosis Family history: Depression (situation) Family history: Diabetes in Family history: Diabetes mellitus Family history: Glaucoma Family history: Hypercholesterolemia (situation) Family history: Osteoporosis Family history: Suicide (situation) Family history: Thyroid disorder Ischemic heart disease Malignant melanoma Malignant neoplasm of breast Malignant neoplasm of lung Malignant neoplasm of ovary Prostate cancer Renal stone Seizure disorder (situation) Review of Systems All 12 item review of systems reviewed with the patient nonsignificant except what is mentioned in the history of present illness H&P Exam Vital Signs/I&O Vital Sign Date Time Temp Pulse Resp B/P (MAP) Pulse Ox O2 Delivery O2 Flow Rate FiO2 10/14/24 10:21 158/104 10/14/24 10:00 99 32 97 10/14/24 07:30 Nasal Cannula* 2 28 10/14/24 07:30 98.3 98.3 Intake and Output 10/13/24 10/14/24 19:00 07:00 Output Total 430 ml Balance -430 ml Output Urine Total 430 ml Physical Exam Patient is awake appeared in moderate respiratory distress Lungs clear to auscultation bilaterally Cardiac examined. Cardiac rub GI soft nontender was normal Extremities no clubbing cyanosis or edema Neuro nonfocal Labs/Diagnostic Data Labs/Diagnostic Data Laboratory Tests Test 10/14/24 10:38 10/14/24 10:18 10/14/24 09:12 10/14/24 03:30 Range/Units SARS-CoV-2 Antigen (Rapid) Negative NEGATIVE Blood Gas Specimen Type Arterial Blood Gas Sample Site Left radial Blood Gas Patient Temperature 37.0 Arterial Blood Date Drawn [id number] Arterial Blood pH 7.437 7.350-7.450 Arterial Blood Partial Pressure CO2 28.9 L 35.0-48.0 mmHg Arterial Blood Partial Pressure O2 100.5 83.0-108.0 mmHg Arterial Blood HCO3 19.1 L 21.0-28.0 mmol/L Arterial Blood Oxygen Saturation 97.4 94.0-98.0 % Arterial Blood Base Excess -3.8 L -2.0-3.0 mmol/L Arterial Blood Oxyhemoglobin 95.9 94.0-98.0 % Arterial Blood Carboxyhemoglobin 1.3 0.5-1.5 % Arterial Blood Methemoglobin 0.2 0.0-1.5 % Bradley Test Yes Blood Gas Total Hemoglobin 13.60 13.5-17.5 g/dL Blood Gas Liter Flow 4.00 Blood Gas Modality Nasal cannula FiO2 % 36.0 POC Glucose 187 H 70-106 mg/dl Sodium Level 135 L 136-145 mmol/L Potassium Level 4.1 3.5-5.1 mmol/L Chloride Level 105 98-107 mmol/L Carbon Dioxide Level 20 20-31 mmol/L Anion Gap 10 5-15 Blood Urea Nitrogen 25 H 9-23 mg/dL Creatinine 1.82 H 0.700-1.30 mg/dL Glomerular Filtration Rate Calc 42 >90 mL/min BUN/Creatinine Ratio 13.7 10.0-20.0 Serum Glucose 219 H 74-106 mg/dL Calcium Level 9.7 8.7-10.4 mg/dL Test 10/13/24 23:49 10/13/24 23:30 10/13/24 21:35 10/13/24 20:37 Range/Units POC Glucose 282 H 70-106 mg/dl Troponin I High Sensitivity 21 20 18 </=54 ng/L White Blood Count 9.6 4.4-10.8 10^3/uL Red Blood Count 5.12 4.5-5.90 10^6/uL Hemoglobin 13.7 13.5-17.5 g/dL Hematocrit 41.7 41.0-53.0 % Mean Corpuscular Volume 81.5 80.0-100.0 fL Mean Corpuscular Hemoglobin 26.7 L 28.0-32.0 pg Mean Corpuscular Hemoglobin Concent 32.8 32.0-36.0 g/dL Red Cell Distribution Width 17.8 H 11.8-14.3 % Platelet Count 222 140-450 10^3/uL Mean Platelet Volume 9.0 6.9-10.8 fL Neutrophils (%) (Auto) 86.0 H 37.0-80.0 % Lymphocytes (%) (Auto) 10.9 10.0-50.0 % Monocytes (%) (Auto) 2.6 0.0-12.0 % Eosinophils (%) (Auto) 0.3 0.0-7.0 % Basophils (%) (Auto) 0.2 0.0-2.0 % Neutrophils # (Auto) 8.3 1.6-8.6 10 ^3/uL Lymphocytes # (Auto) 1.1 0.4-5.4 10 ^3/uL Monocytes # (Auto) 0.2 0-1.3 10 ^3/uL Eosinophils # (Auto) 0 0-0.8 10 ^3/uL Basophils # (Auto) 0 0-0.2 10 ^3/uL Nucleated Red Blood Cells 0.0 % Sodium Level 134 L 136-145 mmol/L Potassium Level 4.4 3.5-5.1 mmol/L Chloride Level 103 98-107 mmol/L Carbon Dioxide Level 23 20-31 mmol/L Anion Gap 8 5-15 Blood Urea Nitrogen 27 H 9-23 mg/dL Creatinine 2.02 H 0.700-1.30 mg/dL Glomerular Filtration Rate Calc 37 >90 mL/min BUN/Creatinine Ratio 13.4 10.0-20.0 Serum Glucose 293 H 74-106 mg/dL Calcium Level 9.9 8.7-10.4 mg/dL Total Bilirubin 0.5 0.2-1.0 mg/dL Aspartate Amino Transferase (AST) 28 13-40 U/L Alanine Aminotransferase (ALT) 39 7-40 U/L Alkaline Phosphatase 128 H 46-116 U/L B-Type Natriuretic Peptide 168.12 0-100 pg/mL Total Protein 7.4 5.7-8.2 g/dL Albumin 4.3 3.2-4.8 g/dL Lipase 64 H 12-53 U/L Assessment Acute kidney injury superimposed Chronic Kidney Disease secondary hemodynamic mediated Large pericardial effusion/pericarditis likely viral etiology Diabetes mellitus type 2 Hypertension Gouty arthritis CVA Recommendations Closely monitor fluid And electrolytes avoid nephrotoxic medications Strict I&Os Check urinalysis urine electrolytes and urine protein excretion Kidney is reported within normal limit on CT of the abdomen Pericardiocentesis Insulin sliding scale We will continue to follow Patient seen and examined by myself ER bed nine. I discussed my plan of care with the patient, his and daughter at the bedside I would like to thank Sebastian for the consult, will follow up Plan discussed with: Patient, Spouse HORACIO CLARK MD Oct 14, 2024 10:14
[2024-10-14] MEDS: amLODIPine BESYLATE 5 MG TAB PO SCH (10:21)
[2024-10-14 10:25] LABS: Base Excess -3.8 mmol/L (-2.0-3.0)
--- NOTE | 2024-10-14 10:30 | DVHCONRES ---
Date Seen: Oct 14, 2024 Resident Creating Document: AMADO KENT RESIDENT Reason for Consultation Pericardial effusion and shortness of Breath History of Present Illness YANIRA CARDENAS is a 59-year-old male patient with a PMH of HTN, type 2 DM, dyslipidemia, CVA, stage III CKD presented to the ED with the chief complaints of shortness of breaths for past 2-3 days prior to admission. Patient reported shortness of breath and stabbing substernal chest pain which is intermittent, 10/10 intensity, aggravated by breathing and delivery by taking Challenge on sitting but no radiation associated with shortness of breath. Patient reported no history of heart issues in past except high blood pressure and also reported flu-like illness for 1 week Patient reports a two day history of unprovoked shortness for breath with associated fatigue. Past Medical History HTN, type 2 DM, dyslipidemia, CVA, stage III CKD Past Surgical History Denies Family History: Family history: Hypertension G8 MOTHER, , Cause: HTN (hypertension) Stroke No Family History of: Cancer Cancer of colon Chronic obstructive lung disease (situation) Family history: Alzheimer's disease Family history: Arthritis Family history: Asthma Family history: Autoimmune disease (situation) Family history: Blood disorder Family history: Cardiovascular disease Family history: Congenital anomaly Family history: Coronary thrombosis Family history: Depression (situation) Family history: Diabetes in Family history: Diabetes mellitus Family history: Glaucoma Family history: Hypercholesterolemia (situation) Family history: Osteoporosis Family history: Suicide (situation) Family history: Thyroid disorder Ischemic heart disease Malignant melanoma Malignant neoplasm of breast Malignant neoplasm of lung Malignant neoplasm of ovary Prostate cancer Renal stone Seizure disorder (situation) Family History Diabetes in mother Social History Lives with family. Denies smoking, alcohol and other drug abuse Allergies: Coded Allergies: NO KNOWN ALLERGIES (Unverified , 04/25/21) Home Meds Active Scripts Cyclobenzaprine HCl (Cyclobenzaprine Hydrochlo) 5 Mg Tab, 5 MG PO Q8HPRN PRN, #14 TAB Prov:ANTELMO LO MD 05/26/23 Prednisone (Prednisone) 20 Mg Tab, 60 MG PO DAILY, #15 MG Prov:ANTELMO LO MD 05/26/23 Clopidogrel Bisulfate (Plavix) 75 Mg Tab, 75 MG PO DAILY for 30 Days, #30 TAB Prov:CARL PARKER MD 04/28/21 Aspirin (Aspir-Low Ec) 81 Mg Tb, 81 MG PO DAILY, #30 TAB Prov:DAVID HIGUERA M.D. 08/06/14 Glimepiride (Glimepiride) 1 Mg Tab, 1 MG PO DAILY, #30 TAB Prov:ADVID HIGUERA M.D. 08/06/14 [Atorvastatin Calcium] 20 MG TB No Conflict Check, 20 MG PO HS, #30 TAB Prov:DAVID HIGUERA M.D. 08/06/14 Reported Medications Losartan Potassium (Losartan Potassium) 100 Mg Tab, 1 TAB PO DAILY, #30 TAB 5 Refills 04/26/21 Insulin NPH (Human) (Isophane) (Novolin N Flexpen) 100 Unit/Ml Inj, 100 UNIT SC, INJ 04/26/21 Atorvastatin Calcium (ATORVASTATIN CALCIUM) 40 Mg Tab, 1 TAB PO DAILY, #30 TAB 5 Refills 04/26/21 Omeprazole Magnesium (Omeprazole) 20 Mg Tab, 20 MG PO DAILYPRN, TAB 04/26/21 Metformin Hydrochloride (Metformin Hcl) 1,000 Mg Tab, 1 TAB PO BID, #60 TAB 5 Refills 04/26/21 Chlorthalidone (Chlorthalidone) 25 Mg Tab, 25 MG PO DAILY, TAB 04/26/21 Finasteride (Finasteride) 5 Mg Tab, 1 TAB PO DAILY, #30 TAB 11 Refills 04/26/21 Tamsulosin HCl (Tamsulosin Hydrochloride) 0.4 Mg Cap, 0.4 MG PO DAILY, CAP 04/26/21 Amlodipine Besylate-Benazepril (AMLODIPINE BESYLATE/BENAZ) 1 Cap Cap, 1 CAP PO DAILY, #30 CAP 5 Refills 08/04/14 Sitagliptin Phosphate (Januvia) 100 Mg Tab, 1 TAB PO DAILY, #30 TAB 5 Refills 08/04/14 Current Medications Current Medications Medications (Trade) Dose Ordered Sig/[place] Route PRN Reason Start Time Stop Time Status Last Admin Amlodipine Besylate (Norvasc Tablet) 5 mg DAILY PO 10/14/24 10:00 10/14/24 10:21 Aspirin 81 mg DAILY PO 10/14/24 10:00 Hold Atorvastatin Calcium (Lipitor) 40 mg HS PO 10/14/24 22:00 Clopidogrel Bisulfate (Plavix) 75 mg DAILY PO 10/14/24 10:00 Hold Albuterol (Ventolin Medneb) 2.5 mg Q6HPRN PRN NEB SHORTNESS OF BREATH 10/13/24 22:45 10/14/24 00:07 Diagnostic Test (Pha) (Accu-Chek Comfort Curve T) 1 strip Q6HR 10/14/24 00:00 10/14/24 05:59 Insulin Human Regular (InsuLIN R) Q6HR SC 10/14/24 00:00 10/14/24 06:00 Dextrose 50 ml UD PRN IV Blood Sugar LESS THAN 60 10/13/24 22:45 Ondansetron HCl (Zofran) 4 mg Q4HP PRN IV NAUSEA / VOMITING 10/13/24 22:45 Acetaminophen (Tylenol Tablet) 650 mg Q6HP PRN PO PAIN SCALE 1-3 OR TEMP>100.4 10/13/24 22:45 Acetaminophen/ Hydrocodone Bitart ([place] 5/325MG Tab) 1 tab Q4HPRN PRN PO MODERATE PAIN (4-6 PAIN SCALE) 10/14/24 07:00 10/14/24 07:02 Review of Systems Patient seen and examined at the bedside, reported shortness of breath, substernal chest pain, abdominal bloating Vital Signs Vital Signs Date Time Temp Pulse Resp B/P (MAP) Pulse Ox O2 Delivery O2 Flow Rate FiO2 10/14/24 10:21 158/104 10/14/24 08:56 99 10/14/24 08:00 26 95 10/14/24 07:30 Nasal Cannula* 2 28 10/14/24 07:30 98.3 98.3 Physical Exam Pt is lying on bed General Appearance: Alert, Oriented X3, Cooperative, Moderately distress HEENT: Atraumatic, Mucous membranes moist/pink Respiratory: Clear to auscultation, Normal air movement, No added sounds Cardiovascular: Regular rate, Distant sounds, No murmurs Abdominal: Active bowel sounds, Soft, no distention, no tenderness Extremities: No edema, Normal pulses, No tenderness/swelling Skin: No Significant rash, except past surgical scars Neuro: Normal speech, sensorimotor deficits none Psych/Mental Status: Mental status NL, Mood NL Nurse was there as sharperone during examination Labs/Diagnostic Data Labs Test 10/14/24 10:18 10/14/24 09:12 10/14/24 03:30 10/13/24 23:30 Range/Units Blood Gas Specimen Type Arterial Blood Gas Sample Site Left radial Blood Gas Patient Temperature 37.0 Arterial Blood Date Drawn [id number] Arterial Blood pH 7.437 7.350-7.450 Arterial Blood Partial Pressure CO2 28.9 L 35.0-48.0 mmHg Arterial Blood Partial Pressure O2 100.5 83.0-108.0 mmHg Arterial Blood HCO3 19.1 L 21.0-28.0 mmol/L Arterial Blood Oxygen Saturation 97.4 94.0-98.0 % Arterial Blood Base Excess -3.8 L -2.0-3.0 mmol/L Arterial Blood Oxyhemoglobin 95.9 94.0-98.0 % Arterial Blood Carboxyhemoglobin 1.3 0.5-1.5 % Arterial Blood Methemoglobin 0.2 0.0-1.5 % Bradley Test Yes Blood Gas Total Hemoglobin 13.60 13.5-17.5 g/dL Blood Gas Liter Flow 4.00 Blood Gas Modality Nasal cannula FiO2 % 36.0 POC Glucose 187 H 70-106 mg/dl Sodium Level 135 L 136-145 mmol/L Potassium Level 4.1 3.5-5.1 mmol/L Chloride Level 105 98-107 mmol/L Carbon Dioxide Level 20 20-31 mmol/L Anion Gap 10 5-15 Blood Urea Nitrogen 25 H 9-23 mg/dL Creatinine 1.82 H 0.700-1.30 mg/dL Glomerular Filtration Rate Calc 42 >90 mL/min BUN/Creatinine Ratio 13.7 10.0-20.0 Serum Glucose 219 H 74-106 mg/dL Calcium Level 9.7 8.7-10.4 mg/dL Troponin I High Sensitivity 21 </=54 ng/L Test 10/13/24 20:37 Range/Units White Blood Count 9.6 4.4-10.8 10^3/uL Red Blood Count 5.12 4.5-5.90 10^6/uL Hemoglobin 13.7 13.5-17.5 g/dL Hematocrit 41.7 41.0-53.0 % Mean Corpuscular Volume 81.5 80.0-100.0 fL Mean Corpuscular Hemoglobin 26.7 L 28.0-32.0 pg Mean Corpuscular Hemoglobin Concent 32.8 32.0-36.0 g/dL Red Cell Distribution Width 17.8 H 11.8-14.3 % Platelet Count 222 140-450 10^3/uL Mean Platelet Volume 9.0 6.9-10.8 fL Neutrophils (%) (Auto) 86.0 H 37.0-80.0 % Lymphocytes (%) (Auto) 10.9 10.0-50.0 % Monocytes (%) (Auto) 2.6 0.0-12.0 % Eosinophils (%) (Auto) 0.3 0.0-7.0 % Basophils (%) (Auto) 0.2 0.0-2.0 % Neutrophils # (Auto) 8.3 1.6-8.6 10 ^3/uL Lymphocytes # (Auto) 1.1 0.4-5.4 10 ^3/uL Monocytes # (Auto) 0.2 0-1.3 10 ^3/uL Eosinophils # (Auto) 0 0-0.8 10 ^3/uL Basophils # (Auto) 0 0-0.2 10 ^3/uL Nucleated Red Blood Cells 0.0 % Total Bilirubin 0.5 0.2-1.0 mg/dL Aspartate Amino Transferase (AST) 28 13-40 U/L Alanine Aminotransferase (ALT) 39 7-40 U/L Alkaline Phosphatase 128 H 46-116 U/L B-Type Natriuretic Peptide 168.12 0-100 pg/mL Total Protein 7.4 5.7-8.2 g/dL Albumin 4.3 3.2-4.8 g/dL Lipase 64 H 12-53 U/L Assessment Pericardial effusion, large, likely loculated, Uncontrolled hypertension Uncontrolled type 2 DM Hyperlipidemia History of CVA, right-sided weakness MARIBEL likely vasomotor on CKD likely stage III Plan/Recommendation: CT abdominal pelvis showed large pericardial effusion, echocardiogram showed large circumferential pericardial effusion with a mildly reduced LV systolic function with estimated EF 50% and global wall hypokinesia. Scheduled for urgent pericardiocentesis at 1st available. All risks versus benefits discussed with the patient and family, agreed to the plan and obtained consent for the procedure. Discussed with Dr. Taylor, who evaluated the patient at bedside. Plan discussed with: Patient, Other (Family & RN) Date of Service: Oct 14, 2024 Billing Provider: SILVERIO TAYLOR MD Cardiology Common Codes: [id number] INP/OBS CARE (High), [id number] CARE 30-74 MIN AMADO KENT RESIDENT Oct 14, 2024 10:30
[2024-10-14] MEDS: SODIUM CHLORIDE 0.9% 1,000 ML IV ONE (11:08)
--- NOTE | 2024-10-14 11:08 | DVHSR ---
APPROVED REPORT EXAM: Two-dimensional and M-mode echocardiogram with Doppler and color Doppler. Blood Pressure: 139/91 mmHg INDICATION Pericardial Effusion RISK FACTORS Height: 65, Weight: 155 DIMENSIONS LVDd3.7 (3.8-5.7cm)LA (2D) (1.9-4.0cm)Aortic Root3.5 (2.0-3.7cm) LVDs2.8 (2.5-4.0cm)LA (MM) (1.9-4.0cm)Aortic Cusp Exc1.7 (1.5-2.0cm) EF (%) 51.0 (55-70%)Rt. Atrium (1.9-4.0cm)Asc. Aorta cm Mitral Valve MitralMitral Stenosis E wave0.60m/sMV Mean GR.mmHg A wave0.87m/sMV Peak GR.mmHg E/A ratio0.72D MVAcm2 DECEL [id number] 1/2 [id number] IVRTmsDop MVA3.17cm2 Aortic Valve Aortic ValveAortic Stenosis V11.03m/Elidia Mean GR.4mmHg V21.37m/Elidia Peak GR.8mmHg LVOT Diameter1.8 (1.8-2.4cm)Doppler AVA1.91cm2 Pulmonic Valve V21.17m/s Other Information Technically limited study due to patient sitting straight up due to breathing. Conclusion There is a large circumferential pericardial effusion. Mildly reduced left ventricular systolic function estimated ejection fraction of 50%. There is globa l wall hypokinesia. Vflh-av-gioenofp concentric left ventricular hypertrophy. Normal right ventricular size and dimension. There is a mild diastolic collapse seen of the right v entricular free wall. suggestive of increased intrapericardial pressure. Clinical correlation is re quired to rule out cardiac tamponade. Mitral and tricuspid Doppler spectral flow not changed dramatically with respirations, indicating lik kassie no evidence of pericardial tamponade Normal biatrial size and dimension. Normal aortic valve structure and function. Normal mitral valve structure and function. Normal tricuspid valve structure and function. The pulmonary valve is grossly normal. No pericardial effusion.
[2024-10-14 11:29] LABS: COVID19 ANTIGEN SOFIA FIA NEGATIVE (NEGATIVE)
[2024-10-14 12:39] LABS: Magnesium 2.4 mg/dL (1.6-2.6)
[2024-10-14 12:41] LABS: Phosphorus 2.7 mg/dL (2.4-5.1)
[2024-10-14 12:43] LABS: Uric Acid < 0.5 mg/dL (3.7-9.2)
[2024-10-14] MEDS ORDERED: fentaNYL CITRATE 100 MCG/2 ML VL ONE (12:53)
[2024-10-14] MEDS ORDERED: MIDAZOLAM HCL 2MG/2ML 2ml VIAL (1mg/ml) ONE (12:53)
[2024-10-14] MEDS ORDERED: HEPARIN SODIUM (PORCINE) 5000 UNITS/ML 1ML VIAL ONE (12:53)
[2024-10-14] MEDS ORDERED: LIDOCAINE 2%HCL (LOCAL ANESTH.) INJ 10ml MDV ONE (12:53)
[2024-10-14 13:16] LABS: Erythrocyte Sedimentation Rate 54 mm/hr (0-20)
[2024-10-14] MEDS ORDERED: ETOMIDATE (2MG/ML) 20ML VIAL IV ONE (14:03)
[2024-10-14] MEDS ORDERED: SUCCINYLCHOLINE CHLORIDE 20 MG/ML 10ML VIAL IV ONE (14:03)
[2024-10-14] MEDS ORDERED: MIDAZOLAM DRIP 50 mg/50mL 50 ML IV ONE (14:13)
[2024-10-14] MEDS ORDERED: fentaNYL Drip 2500mCg/250mlNS 250 ML IV ONE (14:14)
[2024-10-14] MEDS: fentaNYL Drip 2500mCg/250mlNS 250 ML IV SCH (15:15)
[2024-10-14] MEDS: MIDAZOLAM DRIP 50 mg/50mL 50 ML IV SCH (15:15)
[2024-10-14 15:52] LABS: Base Excess -7.4 mmol/L (-2.0-3.0)
--- NOTE | 2024-10-14 16:03 | DVH ---
CHEST RADIOGRAPH Indication: S/P PERICARDIOCENTESIS Technique: Single frontal view of the chest was obtained Comparison: XY CHEST XRAY 1 VIEW on DOS: 10/13/24, XY CHEST XRAY 1 VIEW on DOS: 05/26/23 FINDINGS: Lines and Tubes: Endotracheal tube 1 cm from the denzel. NG tube tip om stomach Lungs: No focal consolidation. Pleura: No effusion. No pneumothorax. Cardiomediastinal contours: Cardiomegaly. Bones: No acute osseous abnormality. IMPRESSION: Cardiomegaly, which could represent a large pericardial effusion. No interval change when compared to prior study.
--- NOTE | 2024-10-14 16:05 | DVHPNRES ---
Progress Note Date Seen: Oct 14, 2024 Resident Creating Document: ASHOK TRONCOSO RESIDENT Objective vital signs Vital Sign Date Time Temp Pulse Resp B/P (MAP) Pulse Ox O2 Delivery O2 Flow Rate FiO2 10/14/24 15:25 107 24 103/78 (86) 97 40 10/14/24 12:00 98.6 98.6 10/14/24 07:30 Nasal Cannula* 2 Total Intake and Output 10/13/24 10/13/24 10/14/24 15:00 23:00 07:00 Output Total 430 ml Balance -430 ml medications Current Medications Medications Dose Ordered Sig/Naveen Route Start Time Stop Time Status Last Admin Dose Admin Amlodipine Besylate 5 mg DAILY PO 10/14/24 10:00 10/14/24 10:21 5 MG Aspirin 81 mg DAILY PO 10/14/24 10:00 Hold Atorvastatin Calcium 40 mg HS PO 10/14/24 22:00 Clopidogrel Bisulfate 75 mg DAILY PO 10/14/24 10:00 Hold Albuterol 2.5 mg Q6HPRN PRN NEB 10/13/24 22:45 10/14/24 00:07 2.5 MG Diagnostic Test (Pha) 1 strip Q6HR 10/14/24 00:00 10/14/24 05:59 1 STRIP Insulin Human Regular Q6HR SC 10/14/24 00:00 10/14/24 06:00 6 UNITS Dextrose 50 ml UD PRN IV 10/13/24 22:45 Ondansetron HCl 4 mg Q4HP PRN IV 10/13/24 22:45 Acetaminophen 650 mg Q6HP PRN PO 10/13/24 22:45 Acetaminophen/ Hydrocodone Bitart 1 tab Q4HPRN PRN PO 10/14/24 07:00 10/14/24 07:02 1 TAB laboratory and microbiology Laboratory Tests 10/14/24 03:30 10/13/24 20:37 Test 10/14/24 03:30 Range/Units Serum Glucose 219 H 74-106 mg/dL Labs and/or images reviewed: Labs reviewed by me, Image(s) reviewed by me Problem List/Assessment/Plan Problem List/Assessment/Plan Plan discussed with: Other My Orders My Orders Orders - ASHOK TRONCOSO RESIDENT Procedure Category Date Status Time Abg W/ Co-Ox RT 12/16/24 Logged 10:13 * Surgical Consult CONS 10/14/24 Transmitted Transfer Orders XFER 10/14/24 Transmitted 14:30 ASHOK TRONCOSO RESIDENT Oct 14, 2024 16:05
[2024-10-14] MEDS ORDERED: AZITHROMYCIN 500MG/ 250ML 250 ML IV ONE (16:30)
[2024-10-14] MEDS ORDERED: cefTRIAXone 1GM/50ML D5W 50 ML IV ONE (16:30)
--- NOTE | 2024-10-14 16:56 | DVHOP2 ---
Operative Report - 2 Report Details Date: 10/14/24 Preop Diagnosis: Large pericardial effusion, with a clinical sign of possible early tamponade Postop Diagnosis: Patient underwent urgent pericardiocentesis with successful drainage of 270 cc of bloody effusion. However, patient still has large effusion that could not be drained to the presence of septations and loculations requiring pericardial window. Surgeon: Carmen Taylor MD Anesthesiologist: Conscious sedation using25 mcg of fentanyl as well as a mg of midazolam. However patient wire was monitored he became more short of breath agitated for which a urgent intubation was done, and patient was placed on continuous infusion of fentanyl and midazolam for deep sedation Anesthesia: Local Consent: The patient was informed of the risks and benefits of the procedure. These include but are not limited to complications of anesthesia, postoperative infection, incomplete relief of symptoms, recurrence of symptoms, damage to blood vessels, nerves and tendons, deep venous thrombosis, pulmonary embolism and possible need for repeat surgery in the future. Indications for Surgery: This is a 59-year-old gentleman with a history of diabetes mellitus, hypertension, hyperlipidemia, possible coronary artery disease, history of strokes x2 in the past, who has been having shortness of breath and increased fatigue over the past week or so. His chest x-ray shows large globular heart and echocardiogram confirmed large pericardial effusion CT scan also confirmed a large pericardial effusion likely bloody with a possible left lower lobe consolidation, patient was urgently taken to the sugar laboratory assistant for pericardial drainage. As he was having tachycardia and hypotension addition to shortness of breath. His echocardiogram was in keeping with large pericardial effusion with a septation and an early diastolic collapse of the right atrium make it a possible sign of early tamponade patient taken to the sugar laboratory assistant for urgent drainage Name of Procedure Performed 1. Pericardial drainage using subxiphoid total approach. 2. Conscious sedation using25 mcg of fentanyl as well as a mg of midazolam. Procedure Details Procedure Details: Procedure note: After informed consent was obtained risks, benefits, complications, alternatives were discussed with the patient's who agrees to have the procedure done. At the beginning of the procedure, the patient was placed in semi-recumbent position chest was prepped and draped with the exposure of the subxiphoid area. Total of 10 cc of 1% xylocaine was given locally followed which25 of fentanyl and 1 mg of IV medium were given intravenously for conscious sedation. However wire the procedure is undergoing, patient became more shortness of breath and agitated for which emergent intubation was done with the help of Dr. Kelly from ER. After oxygenation is maintained with the patient's stabilized an attempt to undergo subxiphoid puncture was made under the echocardiographic guidance, then a J-tip wire was advanced multiple times to the pericardial space, location of the wire was confirmed under fluoroscopy as well by echocardiography. Every time we puncture the pericardial we were able to entrain between 2250 cc of bloody effusion but then the drainage we will stop likely clogged off or a compartment that eight basically drained is emptied, were able to drain total of of 270 cc of bloody effusion, however we could not drain the whole amount of fluid and patient is still has moderate to large effusion. Despite improvement in the hemodynamics patient is still mildly tachycardic for which we recommend a transferred to higher level of care where he could undergo pericardial window with the help of a cardiothoracic surgeon. Have discussed this case with Dr. Sharif and Dr. GREY from abdomen patient will be air-lifted to [facility] continue his care with a pericardial window on pericardial biopsy. Of note patient has also evidence of coronary calcification which likely represent significant underlying coronary artery disease patient might need further evaluation once his pericardial effusion is drained the patient is more stabilized. Impression and plan: 1. Likely chronic to subacute pericardial effusion with chronic septal and coagulum, we were able partially to drain 270 cc of bloody effusion but patient is still has moderate to large effusion that would require more definitive drainage using pericardial window. 2. Possible causes would include malignancy, infection, and idiopathic. Based on the Hounsfield unit in the CT scan this is most likely a bloody effusion has we drained, normal differential diagnosis body effusion need to be considered. 3. Patient has likely underlying coronary artery disease given coronary artery calcification that was seen in the CT angiogram. 4. Despite we were able to puncture the pericardial space multiple time confirming position via ultrasound as well as fluoroscopy we were not able to drain more than total of 270 cc, with a large residual effusion due to loculation, past patient would need to be transferred on urgent basis to higher level care where a pericardial window need to be done as well as pericardial biopsies will be taken to confirm the diagnosis. Case was discussed with the cardiothoracic surgeon Dr. Montserrat hobson and the abdomen patient would be airlifted today to [facility] [place] for further treatment with a pericardial window under the care of Dr. Sharif. 5. Samples were sent for cytology, chemistry, culture and sensitivity, as well as flow cytometry and histopathology Condition Fair Disposition CARMEN TAYLOR MD Oct 14, 2024 16:56
[2024-10-14 17:03] LABS: Rapid Influenza A Negative (Negative); Rapid Influenza B Negative (Negative)
--- NOTE | 2024-10-14 19:46 | DVHDSRES ---
Discharge Summary Date of Admission Resident Creating Document: ASHOK TRONCOSO Oct 13, 2024 at 22:41 Date of Discharge: Oct 14, 2024 Labs/Diagnostic Data: Laboratory Results Test 10/14/24 16:08 10/14/24 16:00 10/14/24 15:23 10/14/24 10:38 POC Glucose 201 mg/dl (70-106) Influenza Type A Antigen Negative (Negative) Influenza Type B Antigen Negative (Negative) Blood Gas Specimen Type Arterial Blood Gas Sample Site Right radial Blood Gas Patient Temperature 37.0 Arterial Blood Date Drawn [id number] Arterial Blood pH 7.339 (7.350-7.450) Arterial Blood Partial Pressure CO2 33.0 mmHg (35.0-48.0) Arterial Blood Partial Pressure O2 332.6 mmHg (83.0-108.0) Arterial Blood HCO3 17.4 mmol/L (21.0-28.0) Arterial Blood Oxygen Saturation 99.0 % (94.0-98.0) Arterial Blood Base Excess -7.4 mmol/L (-2.0-3.0) Arterial Blood Oxyhemoglobin 98.4 % (94.0-98.0) Arterial Blood Carboxyhemoglobin 0.3 % (0.5-1.5) Arterial Blood Methemoglobin 0.3 % (0.0-1.5) Bradley Test Modified Blood Gas Total Hemoglobin 12.90 g/dL (13.5-17.5) Blood Gas Set Respiration Rate 16.0 Blood Gas Modality Vent - ac FiO2 % 100.0 Blood Gas Tidal Volume 500.0 Blood Gas PEEP or CPAP 5.0 Blood Gas Critical Value Read Back Yes Blood Gas Notified Whom Dr shelia arellano Blood Gas Notified Time [id number] Blood Gas Notified By Occupational Health Professional angel kaplan SARS-CoV-2 Antigen (Rapid) Negative (NEGATIVE) Test 10/14/24 10:18 10/14/24 03:30 10/13/24 23:30 10/13/24 20:37 Blood Gas Liter Flow 4.00 Erythrocyte Sedimentation Rate 54 mm/hr (0-20) Sodium Level 135 mmol/L (136-145) Potassium Level 4.1 mmol/L (3.5-5.1) Chloride Level 105 mmol/L (98-107) Carbon Dioxide Level 20 mmol/L (20-31) Anion Gap 10 (5-15) Blood Urea Nitrogen 25 mg/dL (9-23) Creatinine 1.82 mg/dL (0.700-1.30) Glomerular Filtration Rate Calc 42 mL/min (>90) BUN/Creatinine Ratio 13.7 (10.0-20.0) Serum Glucose 219 mg/dL (74-106) Uric Acid < 0.5 mg/dL (3.7-9.2) Calcium Level 9.7 mg/dL (8.7-10.4) Phosphorus Level 2.7 mg/dL (2.4-5.1) Magnesium Level 2.4 mg/dL (1.6-2.6) Vitamin D 25-Hydroxy 115.0 ng/mL (30.0-100) Parathyroid Hormone (Intact) 37.7 pg/mL (18.4-80.1) Troponin I High Sensitivity 21 ng/L (</=54) White Blood Count 9.6 10^3/uL (4.4-10.8) Red Blood Count 5.12 10^6/uL (4.5-5.90) Hemoglobin 13.7 g/dL (13.5-17.5) Hematocrit 41.7 % (41.0-53.0) Mean Corpuscular Volume 81.5 fL (80.0-100.0) Mean Corpuscular Hemoglobin 26.7 pg (28.0-32.0) Mean Corpuscular Hemoglobin Concent 32.8 g/dL (32.0-36.0) Red Cell Distribution Width 17.8 % (11.8-14.3) Platelet Count 222 10^3/uL (140-450) Mean Platelet Volume 9.0 fL (6.9-10.8) Neutrophils (%) (Auto) 86.0 % (37.0-80.0) Lymphocytes (%) (Auto) 10.9 % (10.0-50.0) Monocytes (%) (Auto) 2.6 % (0.0-12.0) Eosinophils (%) (Auto) 0.3 % (0.0-7.0) Basophils (%) (Auto) 0.2 % (0.0-2.0) Neutrophils # (Auto) 8.3 10 ^3/uL (1.6-8.6) Lymphocytes # (Auto) 1.1 10 ^3/uL (0.4-5.4) Monocytes # (Auto) 0.2 10 ^3/uL (0-1.3) Eosinophils # (Auto) 0 10 ^3/uL (0-0.8) Basophils # (Auto) 0 10 ^3/uL (0-0.2) Nucleated Red Blood Cells 0.0 % Total Bilirubin 0.5 mg/dL (0.2-1.0) Aspartate Amino Transferase (AST) 28 U/L (13-40) Alanine Aminotransferase (ALT) 39 U/L (7-40) Alkaline Phosphatase 128 U/L (46-116) B-Type Natriuretic Peptide 168.12 pg/mL (0-100) Total Protein 7.4 g/dL (5.7-8.2) Albumin 4.3 g/dL (3.2-4.8) Lipase 64 U/L (12-53) Other Laboratory Tests 10/14/24 03:30 10/13/24 20:37 Brief Hx & Hospital Course: 59-year-old male patient with past medical history of hypertension, stroke, diabetes mellitus type 2, dyslipidemia, gout, rheumatoid arthritis, chronic kidney disease stage 3 with complaints of shortness of breath, chest pain, fatigue and cough. Patient mentioned that he started having cough and fatigue seven days ago associated with chest pain that was on both side of the chest, nonradiating to the jaw, helps her back was increased with coughing and lying down. He mentioned he started having shortness of breath two days ago increased on lying down. Patient was initially on room air but later was on [address] abdomen and pelvis without contrast in the ED revealed large pericardial effusion and calcified coronary arteries. Chest x-ray also revealed moderate cardiomegaly and left basilar atelectasis with developing airspace disease not excluded. Waste Examiner and [place] leverman was consulted by the admitting team. Patient was started on insulin Lantus and sliding scale insulin for management of diabetes. Echocardiogram revealed here is a large circumferential pericardial effusion. Mildly reduced left ventricular systolic function estimated ejection fraction of 50%. There is global wall hypokinesia. [id number] concentric left ventricular hypertrophy. Normal right ventricular size and dimension. There is a mild diastolic collapse seen of the right ventricular free wall. suggestive of increased intrapericardial pressure. Mitral and tricuspid Doppler spectral flow not changed dramatically with respirations, indicating likely no evidence of pericardial tamponade. Patient was given 1 L of IV fluids. He was also started on ceftriaxone and azithromycin based on possibility of pneumonia. Pericardiocentesis was done with the impression : 1. Likely chronic to subacute pericardial effusion with chronic septal and coagulum, we were able partially to drain 270 cc of bloody effusion but patient is still has moderate to large effusion that would require more definitive drainage using pericardial window. 2. Possible causes would include malignancy, infection, and idiopathic. Based on the Hounsfield unit in the CT scan this is most likely a bloody effusion has we drained, normal differential diagnosis body effusion need to be considered. 3. Patient has likely underlying coronary artery disease given coronary artery calcification that was seen in the CT angiogram. 4. Despite we were able to puncture the pericardial space multiple time confirming position via ultrasound as well as fluoroscopy we were not able to drain more than total of 270 cc, with a large residual effusion due to loculation, past patient would need to be transferred on urgent basis to higher level care where a pericardial window need to be done as well as pericardial biopsies will be taken to confirm the diagnosis. Case was discussed with the cardiothoracic surgeon Dr. Montserrat hobson and the abdomen patient would be airlifted today to [facility] for further treatment with a pericardial window under the care of Dr. Sharif. 5. Samples were sent for cytology, chemistry, culture and sensitivity, as well as flow cytometry and histopathology During the pericardiocentesis, patient was intubated for increased work of breathing and acute hypoxic respiratory failure. Patient was started on midazolam and fentanyl. As per the recommendation from screen printing press operator, patient was planned to be transferred to higher level of care for urgent surgical evaluation and management. Senior Operations Analyst was consulted for transferred to higher level of care. We had a family meeting with the whole team including screen printing press operator and hospitalist, family was explained in detail about the procedure, need for intubation, findings during the procedure and the further plan to transferred to higher level of care which they understood. Patient was transferred to higher level of care for urgent surgical evaluation and management and for surgical drainage for last pericardial effusion. Operations or Procedures Operative Report - 2 Report Details Date: 10/14/24 Preop Diagnosis: Large pericardial effusion, with a clinical sign of possible early tamponade Postop Diagnosis: Patient underwent urgent pericardiocentesis with successful drainage of 270 cc of bloody effusion. However, patient still has large effusion that could not be drained to the presence of septations and loculations requiring pericardial window. Surgeon: Carmen Taylor MD Anesthesiologist: Conscious sedation using25 mcg of fentanyl as well as a mg of midazolam. However patient wire was monitored he became more short of breath agitated for which a urgent intubation was done, and patient was placed on continuous infusion of fentanyl and midazolam for deep sedation Anesthesia: Local Consent: The patient was informed of the risks and benefits of the procedure. These include but are not limited to complications of anesthesia, postoperative infection, incomplete relief of symptoms, recurrence of symptoms, damage to blood vessels, nerves and tendons, deep venous thrombosis, pulmonary embolism and possible need for repeat surgery in the future. Indications for Surgery: This is a 59-year-old gentleman with a history of diabetes mellitus, hypertension, hyperlipidemia, possible coronary artery disease, history of strokes x2 in the past, who has been having shortness of breath and increased fatigue over the past week or so. His chest x-ray shows large globular heart and echocardiogram confirmed large pericardial effusion CT scan also confirmed a large pericardial effusion likely bloody with a possible left lower lobe consolidation, patient was urgently taken to the filling station laborer for pericardial drainage. As he was having tachycardia and hypotension addition to shortness of breath. His echocardiogram was in keeping with large pericardial effusion with a septation and an early diastolic collapse of the right atrium make it a possible sign of early tamponade patient taken to the filling station laborer for urgent drainage Name of Procedure Performed 1. Pericardial drainage using subxiphoid total approach. 2. Conscious sedation using25 mcg of fentanyl as well as a mg of midazolam. Procedure Details Procedure Details: Procedure note: After informed consent was obtained risks, benefits, complications, alternatives were discussed with the patient's who agrees to have the procedure done. At the beginning of the procedure, the patient was placed in semi-recumbent position chest was prepped and draped with the exposure of the subxiphoid area. Total of 10 cc of 1% xylocaine was given locally followed which25 of fentanyl and 1 mg of IV medium were given intravenously for conscious sedation. However wire the procedure is undergoing, patient became more shortness of breath and agitated for which emergent intubation was done with the help of Dr. Kelly from ER. After oxygenation is maintained with the patient's stabilized an attempt to undergo subxiphoid puncture was made under the echocardiographic guidance, then a J-tip wire was advanced multiple times to the pericardial space, location of the wire was confirmed under fluoroscopy as well by echocardiography. Every time we puncture the pericardial we were able to entrain between 2250 cc of bloody effusion but then the drainage we will stop likely clogged off or a compartment that eight basically drained is emptied, were able to drain total of of 270 cc of bloody effusion, however we could not drain the whole amount of fluid and patient is still has moderate to large effusion. Despite improvement in the hemodynamics patient is still mildly tachycardic for which we recommend a transferred to higher level of care where he could undergo pericardial window with the help of a cardiothoracic surgeon. Have discussed this case with Dr. Sharif and Dr. GREY from abdomen patient will be air-lifted to [facility] continue his care with a pericardial window on pericardial biopsy. Of note patient has also evidence of coronary calcification which likely represent significant underlying coronary artery disease patient might need further evaluation once his pericardial effusion is drained the patient is more stabilized. Impression and plan: 1. Likely chronic to subacute pericardial effusion with chronic septal and coagulum, we were able partially to drain 270 cc of bloody effusion but patient is still has moderate to large effusion that would require more definitive drainage using pericardial window. 2. Possible causes would include malignancy, infection, and idiopathic. Based on the Hounsfield unit in the CT scan this is most likely a bloody effusion has we drained, normal differential diagnosis body effusion need to be considered. 3. Patient has likely underlying coronary artery disease given coronary artery calcification that was seen in the CT angiogram. 4. Despite we were able to puncture the pericardial space multiple time confirming position via ultrasound as well as fluoroscopy we were not able to drain more than total of 270 cc, with a large residual effusion due to loculation, past patient would need to be transferred on urgent basis to higher level care where a pericardial window need to be done as well as pericardial biopsies will be taken to confirm the diagnosis. Case was discussed with the cardiothoracic surgeon Dr. Montserrat hobson and the abdomen patient would be airlifted today to [facility] for further treatment with a pericardial window under the care of Dr. Sharif. 5. Samples were sent for cytology, chemistry, culture and sensitivity, as well as flow cytometry and histopathology Condition [facility] [address] [facility] [id number] Ph: [phone] DIAGNOSTIC IMAGING Diagnostic Imaging Report : [id number] Signed PATIENT: YANIRA CARDENAS ACCT: [id number] UNIT: [id number] : 1965 LOC: OVERFLOW ROOM / BED: 1010-ER / A AGE / SEX: 59 / M ADM STATUS: ADM IN SERVICE 40 ORDERING PHYSICIAN: DIEGO HARPER PROCEDURE(s): ECIDC - ECHO 2D MODE CARDIAC DOP REASON: pericardial effusion ORDER NUMBER(s): [id number], ACCESSION NUMBER(s): [id number] APPROVED REPORT EXAM: Two-dimensional and M-mode echocardiogram with Doppler and color Doppler. Blood Pressure: 139/91 mmHg INDICATION Pericardial Effusion RISK FACTORS Height: 65, Weight: 155 DIMENSIONS LVDd 3.7 (3.8-5.7cm) LA (2D) (1.9-4.0cm) Aortic Root 3.5 (2.0- 3.7cm) LVDs 2.8 (2.5-4.0cm) LA (MM) (1.9-4.0cm) Aortic Cusp Exc 1.7 (1.5- 2.0cm) EF (%) 51.0 (55-70%) Rt. Atrium (1.9-4.0cm) Asc. Aorta cm Mitral Valve Mitral Mitral Stenosis E wave 0.60m/s MV Mean GR. mmHg A wave 0.87m/s MV Peak GR. mmHg E/A ratio 0.7 2D MVA cm2 DECEL Time 244ms PRESS 1/2 Time 69ms IVRT ms Dop MVA 3.17cm2 Aortic Valve Aortic Valve Aortic Stenosis V1 1.03m/s AO Mean GR. 4mmHg V2 1.37m/s AO Peak GR. 8mmHg LVOT Diameter 1.8 (1.8-2.4cm) Doppler JUANA 1.91cm2 Pulmonic Valve V2 1.17m/s Other Information Technically limited study due to patient sitting straight up due to breathing. Conclusion There is a large circumferential pericardial effusion. Mildly reduced left ventricular systolic function estimated ejection fraction of 50%. There is global wall hypokinesia. [id number] concentric left ventricular hypertrophy. Normal right ventricular size and dimension. There is a mild diastolic collapse seen of the right ventricular free wall. suggestive of increased intrapericardial pressure. Clinical correlation is required to rule out cardiac tamponade. Mitral and tricuspid Doppler spectral flow not changed dramatically with respirations, indicating likely no evidence of pericardial tamponade Normal biatrial size and dimension. Normal aortic valve structure and function. Normal mitral valve structure and function. Normal tricuspid valve structure and function. The pulmonary valve is grossly normal. No pericardial effusion. SIGNED BY: CARMEN TAYLOR MD SIGNED DATE/TIME: 10/14/24 1108 CC: [place] [address] Ph: [phone] DIAGNOSTIC IMAGING Diagnostic Imaging Report : [id number] Signed PATIENT: YANIRA CARDENAS ACCT: [id number] UNIT: [id number] : 1965 LOC: ER ROOM / BED: / AGE / SEX: 59 / M ADM STATUS: REG ER SERVICE 06 ORDERING PHYSICIAN: BECCA MIRANDA PAC PROCEDURE(s): ABPL - CT AB PEL WO CON-NO ORAL OR IV REASON: Abdominal pain ORDER NUMBER(s): [id number], ACCESSION NUMBER(s): [id number] Exam: CT CT AB PEL WO CON-NO ORAL OR IV History: Abdominal pain Comparison Study: None available at time of dictation. TECHNIQUE: Multidetector CT of the abdomen was performed from lung bases to pubic symphysis. Imaging was performed without IV contrast. Axial, coronal and sagittal multiplanar reformats were obtained from the axial data set by the technologist. Radiation Dose Information: CT Dose: CTDI volume is 6.71 mGy. Dose-length product is 395.0 mGy*cm FINDINGS: Evaluation of solid organs is limited due to lack of intravenous contrast use. Findings: Lung Bases: No acute or significant lung base finding. Normal heart size. Large pericardial effusion. Calcified coronary arteries. Liver: The liver is normal in size. No focal lesions. Gallbladder and Biliary Tree: Unremarkable Spleen: Unremarkable Pancreas: The pancreas is grossly normal in appearance. Adrenal Glands: Unremarkable Kidneys: Kidneys are grossly normal without calculi or hydronephrosis. Bladder: Grossly unremarkable for degree of distention. Bowel: The stomach is grossly normal in appearance. Small bowel and colon are normal in caliber and distribution. The appendix is not visualized; however, no secondary findings of acute appendicitis identified. Ascites: Absent Lymphadenopathy: No mesenteric, retroperitoneal or periportal lymphadenopathy. Abdominal Wall and Mesentery: Unremarkable. Vasculature: The visualized abdominal aorta is normal in size and caliber. Evaluation of abdominal and pelvic vessels is limited due to lack of intravenous contrast. Pelvic Organs: Unremarkable Musculoskeletal: No aggressive focal bony lesions, acute fractures or dislocation. Soft tissues: Unremarkable IMPRESSION: 1. Large pericardial effusion. 2. Calcified coronary arteries. 3. No CT findings suggest bowel obstruction. Radiation optimization: All CT scans at this facility use at least one of these dose optimization techniques: automated exposure control mA and/or kV adjustment per patient size (includes targeted exams where dose is matched to clinical indication) or iterative reconstruction. ATED BY: SANDEE QUIÑONEZ Jr., DO DICTATED DATE/TIME: 10/13/242043 SIGNED BY: SANDEE QUIÑONEZ Jr., SIGNED DATE/TIME: 10/13/242043 CC: Condition at Discharge: Critical Final Diagnosis/Problems List loculated large pericardial effusion s/p pericardiocentesis acute hypoxic resp failure s/p intubation\ left lower lobe basilar atelectasis ?pneumonia ?Acute kidney injury on chronic kidney disease stage III history of stroke ?coronary artery disease given coronary artery calcification that was seen in the CT gout rheumatoid arthritis hypertension Diabetes mellitus type 2 Discharge Disposition: Acute Care Facility Discharge Instruct/Medications Diet: Cardiac 2g Na,low cholest Activity: No Restrictions, As Tolerated ASSESSMENT ASSESSMENT Assessment large pericardial effusion Date of Service: Oct 14, 2024 Billing Provider: ANIL MURPHY MD Common Visit Codes: 72995-IRNICBXL CARE 30-74 MIN, 57002-URDKKDNL CARE-EACH +30MIN, PROCEDURE ONLY (Cardiac point of care ultrasound 33890) Coding Comment Comment Attending Attestation I saw and evaluated the patient. I reviewed the residents note and agree with findings and plan as documented in the residents note except as documented below. 59 M admitted with fatigue weakness and SOB, POCUS done showed massive pleural effusion with diastolic RV collapse, L PLAPS, cardio consulted for pericardiocentesis. Patient was in respiratory distress which improved with sitting up, discussed with patient possibility of intubation and he agrees. started on IV fluid and bipap standby prior to procedure. during procedure drained 270cc of bloody fluid, loculated effusion, patient had respiratory distress and was intubatedm sedated and placed on mechanical ventilation. initiated transfer to [facility] for [facility] surgery possible pericardial window vs stripping. likely malignancy, unknown primary. Had family conference with screen printing press operator and patient's family, all questions answered. 95 minutes critical care time spent on this patient including evaluation, chart review, formulating plan and communication with team, excluding any procedures or point of care imaging ASHOK TRONCOSO Oct 14, 2024 19:46 ANIL MURPHY MD Oct 14, 2024 21:37
--- NOTE | 2024-10-14 19:49 | DVHINCON2 ---
Date of service: Oct 14, 2024 Reason for Consultation Ventilator management History of Present Illness 59-year-old man history of hypertension, type 2 diabetes, dyslipidemia, CVA, stage III CKD presented with a chief complaint of shortness breath for the last 2-3 days. He had imaging studies that were notable for pericardial effusion. He had been complaining of shortness of breath. He described the pain as stabbing in nature. He was substernal in location. It was 10/10 in intensity. He was aggravated by deep breathing. It was not radiate. He eventually require d intubation and placement on mechanical ventilation. Pulmonary consultation is called due to acute respiratory failure on mechanical ventilator management. Review of systems: Unable to obtain due to patient's critical condition. Past medical history: Hypertension, type 2 diabetes mellitus, dyslipidemia, CVA, stage III CKD Past surgical history: None mentioned in prior surgeries. Medications: Reviewed Allergies: No known drug allergies. Family history: No family history of premature CAD. No family history of lung disease. Grandmother with stroke and hypertension. Diabetes mellitus in mother. Social history: Nonsmoker. No alcohol or illicit drug use. Lives with family. Family History: Family history: Hypertension G8 MOTHER, , Cause: HTN (hypertension) Stroke No Family History of: Cancer Cancer of colon Chronic obstructive lung disease (situation) Family history: Alzheimer's disease Family history: Arthritis Family history: Asthma Family history: Autoimmune disease (situation) Family history: Blood disorder Family history: Cardiovascular disease Family history: Congenital anomaly Family history: Coronary thrombosis Family history: Depression (situation) Family history: Diabetes in Family history: Diabetes mellitus Family history: Glaucoma Family history: Hypercholesterolemia (situation) Family history: Osteoporosis Family history: Suicide (situation) Family history: Thyroid disorder Ischemic heart disease Malignant melanoma Malignant neoplasm of breast Malignant neoplasm of lung Malignant neoplasm of ovary Prostate cancer Renal stone Seizure disorder (situation) Allergies: Coded Allergies: NO KNOWN ALLERGIES (Unverified , 04/25/21) Home Meds Active Scripts Cyclobenzaprine HCl (Cyclobenzaprine Hydrochlo) 5 Mg Tab, 5 MG PO Q8HPRN PRN, #14 TAB Prov:ANTELMO LO MD 05/26/23 Prednisone (Prednisone) 20 Mg Tab, 60 MG PO DAILY, #15 MG Prov:ANTELMO LO MD 05/26/23 Clopidogrel Bisulfate (Plavix) 75 Mg Tab, 75 MG PO DAILY for 30 Days, #30 TAB Prov:CARL PARKER MD 04/28/21 Aspirin (Aspir-Low Ec) 81 Mg Tb, 81 MG PO DAILY, #30 TAB Prov:DAVID HIGUERA M.D. 08/06/14 Glimepiride (Glimepiride) 1 Mg Tab, 1 MG PO DAILY, #30 TAB Prov:DAVID HIGUERA M.D. 08/06/14 [Atorvastatin Calcium] 20 MG TB No Conflict Check, 20 MG PO HS, #30 TAB Prov:DAVID HIGUERA M.D. 08/06/14 Reported Medications Losartan Potassium (Losartan Potassium) 100 Mg Tab, 1 TAB PO DAILY, #30 TAB 5 Refills 04/26/21 Insulin NPH (Human) (Isophane) (Novolin N Flexpen) 100 Unit/Ml Inj, 100 UNIT SC, INJ 04/26/21 Atorvastatin Calcium (ATORVASTATIN CALCIUM) 40 Mg Tab, 1 TAB PO DAILY, #30 TAB 5 Refills 04/26/21 Omeprazole Magnesium (Omeprazole) 20 Mg Tab, 20 MG PO DAILYPRN, TAB 04/26/21 Metformin Hydrochloride (Metformin Hcl) 1,000 Mg Tab, 1 TAB PO BID, #60 TAB 5 R efills 04/26/21 Chlorthalidone (Chlorthalidone) 25 Mg Tab, 25 MG PO DAILY, TAB 04/26/21 Finasteride (Finasteride) 5 Mg Tab, 1 TAB PO DAILY, #30 TAB 11 Refills 04/26/21 Tamsulosin HCl (Tamsulosin Hydrochloride) 0.4 Mg Cap, 0.4 MG PO DAILY, CAP 04/26/21 Amlodipine Besylate-Benazepril (AMLODIPINE BESYLATE/BENAZ) 1 Cap Cap, 1 CAP PO DAILY, #30 CAP 5 Refills 08/04/14 Sitagliptin Phosphate (Januvia) 100 Mg Tab, 1 TAB PO DAILY, #30 TAB 5 Refills 08/04/14 Current Medications Current Medications Medications (Trade) Dose Ordered Sig/Naveen Route PRN Reason Start Time Stop Time Status Last Admin Amlodipine Besylate (Norvasc Tablet) 5 mg DAILY PO 10/14/24 10:00 10/14/24 10:21 Aspirin 81 mg DAILY PO 10/14/24 10:00 Hold Atorvastatin Calcium (Lipitor) 40 mg HS PO 10/14/24 22:00 Clopidogrel Bisulfate (Plavix) 75 mg DAILY PO 10/14/24 10:00 Hold Albuterol (Ventolin Medneb) 2.5 mg Q6HPRN PRN NEB SHORTNESS OF BREATH 10/13/24 22:45 10/14/24 00:07 Diagnostic Test (Pha) (Accu-Chek Comfort Curve T) 1 strip Q6HR 10/14/24 00:00 10/14/24 05:59 Insulin Human Regular (InsuLIN R) Q6HR SC 10/14/24 00:00 10/14/24 06:00 Dextrose 50 ml UD PRN IV Blood Sugar LESS THAN 60 10/13/24 22:45 Ondansetron HCl (Zofran) 4 mg Q4HP PRN IV NAUSEA / VOMITING 10/13/24 22:45 Acetaminophen (Tylenol Tablet) 650 mg Q6HP PRN PO PAIN SCALE 1-3 OR TEMP>100.4 10/13/24 22:45 Acetaminophen/ Hydrocodone Bitart (Aurora 5/325MG Tab) 1 tab Q4HPRN PRN PO MODERATE PAIN (4-6 PAIN SCALE) 10/14/24 07:00 10/14/24 07:02 Midazolam HCl 50 ml @ 1 mls/hr Q24H IV 10/14/24 16:00 10/14/24 15:15 Fentanyl Citrate 250 ml @ 2.5 mls/hr Q24H IV 10/14/24 16:00 10/14/24 15:15 Vital Signs Vital Signs Date Time Temp Pulse Resp B/P (MAP) Pulse Ox O2 Delivery O2 Flow Rate FiO2 10/14/24 17:48 110 22 100 Mechanical Ventilator+ 30 30 10/14/24 17:22 100/74 (83) 10/14/24 15:30 97.9 97.9 10/14/24 07:30 2 Physical Exam Gen.: Patient lying in bed in medical ICU. Sedated, intubated on mechanical ventilator. Head: Normocephalic, atraumatic. Eyes: PERRLA. Ears: Normal external anatomy. Throat: Endotracheal tube and orogastric tube in place. Neck: Supple, trachea midline. Chest: Transmitted breath sounds bilaterally. Decreased air entry bilaterally. No wheezing. Bibasilar crackles. Cardio vascular: Positive S1, positive S2. Regular rate and rhythm. Abdomen: Positive bowel sounds in all 4 quadrants. Soft, nontender, nondistended. : Johnson in place. Normal external genitalia. Rectal: Deferred Skin: Warm, dry. Intact. Extremities: 2+ radial pulses bilaterally. No lower extremity edema. Neuro: Sedated. Labs/Diagnostic Data Labs Test 10/14/24 16:08 10/14/24 16:00 10/14/24 15:23 10/14/24 10:38 Range/Units POC Glucose 201 H 70-106 mg/dl Influenza Type A Antigen Negative Negative Influenza Type B Antigen Negative Negative Blood Gas Specimen Type Arterial Blood Gas Sample Site Right radial Blood Gas Patient Temperature 37.0 Arterial Blood Date Drawn [id number] Arterial Blood pH 7.339 L 7.350-7.450 Arterial Blood Partial Pressure CO2 33.0 L 35.0-48.0 mmHg Arterial Blood Partial Pressure O2 332.6 *H 83.0-108.0 mmHg Arterial Blood HCO3 17.4 L 21.0-28.0 mmol/L Arterial Blood Oxygen Saturation 99.0 H 94.0-98.0 % Arterial Blood Base Excess -7.4 L -2.0-3.0 mmol/L Arterial Blood Oxyhemoglobin 98.4 H 94.0-98.0 % Arterial Blood Carboxyhemoglobin 0.3 L 0.5-1.5 % Arterial Blood Methemoglobin 0.3 0.0-1.5 % Bradley Test Modified Blood Gas Total Hemoglobin 12.90 L 13.5-17.5 g/dL Blood Gas Set Respiration Rate 16.0 Blood Gas Modality Vent - ac FiO2 % 100.0 Blood Gas Tidal Volume 500.0 Blood Gas PEEP or CPAP 5.0 Blood Gas Critical Value Read Back Yes Blood Gas Notified Whom Dr shelia arellano Blood Gas Notified Time [id number] Blood Gas Notified By Licensed Bondsman angel kaplan SARS-CoV-2 Antigen (Rapid) Negative NEGATIVE Test 10/14/24 10:18 10/14/24 03:30 10/13/24 23:30 10/13/24 20:37 Range/Units Blood Gas Liter Flow 4.00 Erythrocyte Sedimentation Rate 54 H 0-20 mm/hr Sodium Level 135 L 136-145 mmol/L Potassium Level 4.1 3.5-5.1 mmol/L Chloride Level 105 98-107 mmol/L Carbon Dioxide Level 20 20-31 mmol/L Anion Gap 10 5-15 Blood Urea Nitrogen 25 H 9-23 mg/dL Creatinine 1.82 H 0.700-1.30 mg/dL Glomerular Filtration Rate Calc 42 >90 mL/min BUN/Creatinine Ratio 13.7 10.0-20.0 Serum Glucose 219 H 74-106 mg/dL Uric Acid < 0.5 L 3.7-9.2 mg/dL Calcium Level 9.7 8.7-10.4 mg/dL Phosphorus Level 2.7 2.4-5.1 mg/dL Magnesium Level 2.4 1.6-2.6 mg/dL Vitamin D 25-Hydroxy 115.0 H 30.0-100 ng/mL Parathyroid Hormone (Intact) 37.7 18.4-80.1 pg/mL Troponin I High Sensitivity 21 </=54 ng/L White Blood Count 9.6 4.4-10.8 10^3/uL Red Blood Count 5.12 4.5-5.90 10^6/uL Hemoglobin 13.7 13.5-17.5 g/dL Hematocrit 41.7 41.0-53.0 % Mean Corpuscular Volume 81.5 80.0-100.0 fL Mean Corpuscular Hemoglobin 26.7 L 28.0-32.0 pg Mean Corpuscular Hemoglobin Concent 32.8 32.0-36.0 g/dL Red Cell Distribution Width 17.8 H 11.8-14.3 % Platelet Count 222 140-450 10^3/uL Mean Platelet Volume 9.0 6.9-10.8 fL Neutrophils (%) (Auto) 86.0 H 37.0-80.0 % Lymphocytes (%) (Auto) 10.9 10.0-50.0 % Monocytes (%) (Auto) 2.6 0.0-12.0 % Eosinophils (%) (Auto) 0.3 0.0-7.0 % Basophils (%) (Auto) 0.2 0.0-2.0 % Neutrophils # (Auto) 8.3 1.6-8.6 10 ^3/uL Lymphocytes # (Auto) 1.1 0.4-5.4 10 ^3/uL Monocytes # (Auto) 0.2 0-1.3 10 ^3/uL Eosinophils # (Auto) 0 0-0.8 10 ^3/uL Basophils # (Auto) 0 0-0.2 10 ^3/uL Nucleated Red Blood Cells 0.0 % Total Bilirubin 0.5 0.2-1.0 mg/dL Aspartate Amino Transferase (AST) 28 13-40 U/L Alanine Aminotransferase (ALT) 39 7-40 U/L Alkaline Phosphatase 128 H 46-116 U/L B-Type Natriuretic Peptide 168.12 0-100 pg/mL Total Protein 7.4 5.7-8.2 g/dL Albumin 4.3 3.2-4.8 g/dL Lipase 64 H 12-53 U/L Assessment Impression: Acute hypoxic respiratory failure On mechanical ventilator Pericardial effusion, large, loculated, Uncontrolled hypertension Uncontrolled type 2 DM Hyperlipidemia History of CVA, right-sided weakness MARIBEL likely vasomotor on CKD likely stage III Metabolic acidosis Plan: s/p intubation on mechanical ventilator CT chest: Large pericardial effusion. Calcified coronary arteries. CXR image and report reviewed. Cardiomegaly. ABG reviewed. Compensated. On AC: 16, Vt 500, Peep 5, FIO2 100%. Titrate FIO2 to keep O2 saturation above 92%. VAP bundle Daily ABG and CXR while intubated. Sedate for ventilatory synchrony Bronchodilators Start pressors if necessary for hemodynamic support. Cardiology recommendations appreciated. Limited Chest US performed. Loculated pericardial effusion HLOC for cardiothoracic evaluation. Continue antibiotics. F/u cultures. Monitor renal function due to Acute kidney injury. Monitor electrolytes. Supplement as necessary. Monitor ins/outs Nutritional support. Accucheks, ISS. GI/DVT prophylaxis. Condition: Critical Prognosis: Poor given multiple comorbidities. Rest of plan per hospitalist and other consultants. A total of 36 minutes of critical care time was spent reviewing the patient record, examining the patient, making a diagnostic and therapeutic plan, discussing this plan with the medical personnel, following up on diagnostic studies and following the patient for clinical stability excluding any and all procedures. At least 50% of this time was spent in direct, [id number] contact. Thank you Dr. Cooper for allowing me to participate in this patient's care. Further recommendations will depend on patient's clinical course. Please do not hesitate to contact me if you have any questions or concerns. This medical document was created using an electronic medical record system with [employer] dictation system. Although this document has been carefully reviewed, there may still be some phonetic and typographical errors. These areas are purely typographical due to imperfections of the software programs, and do not reflect any compromise in the patient's medical care. Plan discussed with: Other (RN, MD) GUILLERMO BUSTILLO MD Oct 14, 2024 19:49
[2024-10-14] MEDS ORDERED: ATORVASTATIN 20 MG TAB PO SCH (22:00)
--- NOTE | 2024-10-16 09:55 | ECG ---
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
--- NOTE | 2024-10-16 09:59 | ECG ---
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
== END 2024-10-14 11:22 | disposition short-term general hospital (02) | DRG 208 ==
LOC: ER 19:26 → OVERFLOW 22:41
PROVIDERS: ADMIT Student in an Organized Health Care Education/Training Program; ATTEND Student in an Organized Health Care Education/Training Program
PROC: 0W9D3ZZ Drainage of Pericardial Cavity, Percutaneous Approach (ICD-10-PCS; principal; 2024-10-14)
PROC: 5A1935Z Respiratory Ventilation, Less than 24 Consecutive Hours (ICD-10-PCS; 2024-10-14)
PROC: 0BH17EZ Insertion of Endotracheal Airway into Trachea, Via Natural or Artificial Opening (ICD-10-PCS; 2024-10-14)
DX: J96.01 Acute respiratory failure with hypoxia (principal); J15.69 Pneumonia due to other Gram-negative bacteria; J15.9 Unspecified bacterial pneumonia; I31.39 Other pericardial effusion (noninflammatory); J90 Pleural effusion, not elsewhere classified; E87.20 Acidosis, unspecified; I69.351 Hemiplegia and hemiparesis following cerebral infarction affecting right dominant side; J98.11 Atelectasis; Z20.822 Contact with and (suspected) exposure to COVID-19; M06.9 Rheumatoid arthritis, unspecified; E11.22 Type 2 diabetes mellitus with diabetic chronic kidney disease; E11.65 Type 2 diabetes mellitus with hyperglycemia; E78.5 Hyperlipidemia, unspecified; I12.9 Hypertensive chronic kidney disease with stage 1 through stage 4 chronic kidney disease, or unspecified chronic kidney disease; N18.32 Chronic kidney disease, stage 3b; I25.10 Atherosclerotic heart disease of native coronary artery without angina pectoris; M10.9 Gout, unspecified; Z82.49 Family history of ischemic heart disease and other diseases of the circulatory system; Z80.8 Family history of malignant neoplasm of other organs or systems; Z82.5 Family history of asthma and other chronic lower respiratory diseases; Z81.8 Family history of other mental and behavioral disorders; Z83.3 Family history of diabetes mellitus; Z82.62 Family history of osteoporosis; Z80.3 Family history of malignant neoplasm of breast; Z80.1 Family history of malignant neoplasm of trachea, bronchus and lung; Z80.0 Family history of malignant neoplasm of digestive organs; Z80.42 Family history of malignant neoplasm of prostate; Z82.0 Family history of epilepsy and other diseases of the nervous system; Z82.3 Family history of stroke; Z79.84 Long term (current) use of oral hypoglycemic drugs; Z79.82 Long term (current) use of aspirin; Z79.4 Long term (current) use of insulin; Z79.899 Other long term (current) drug therapy
CPT/HCPCS: 33016; 36415; 36600; 71045; 74176; 80048; 80053; 82306; 82805; 82962; 83690; 83735; 83880; 83970; 84100; 84484; 84550; 85025; 85652; 87070; 87077; 87205; 87426; 87804; 93005; 93306; 94002; 94640; 99152; G0378; J0330; J1815; J2003; J2250

== ENCOUNTER 2024-11-27 10:25 | Inpatient (IN) | payer MEDICARE, OTHER ==
[~2024-11-27] VITALS: Ht 165.1 cm; Wt 70.8 kg
--- NOTE | 2024-11-27 10:37 | ED.PDOC ---
HPI Comments 59-year-old male presents with a chief complaint of chest pain. Patient recently had a pericardial effusion surgery on 10/14/2024 and is now reporting 09/08 pain to his chest. Patient has PMHx HTN, DM, HLD, and CVA. Patient is moaning in pain, but states that pain started this morning. Patients EKG upon triage shows ST with rate of 119. Patient reports that his pain is localized to his left side of his chest, nonradiating. No other symptoms or modifying factors present at this time. Chief Complaint: Chest Pain Time Seen by MD: 10:30 Primary Care Provider: ? Reviewed Notes: Medications, Allergies Allergies: Coded Allergies: NO KNOWN ALLERGIES (Unverified , 04/25/21) Home Meds Active Scripts Cyclobenzaprine HCl (Cyclobenzaprine Hydrochlo) 5 Mg Tab, 5 MG PO Q8HPRN PRN, #14 TAB Prov:ANTELMO LO MD 05/26/23 Prednisone (Prednisone) 20 Mg Tab, 60 MG PO DAILY, #15 MG Prov:ANTELMO LO MD 05/26/23 Clopidogrel Bisulfate (Plavix) 75 Mg Tab, 75 MG PO DAILY for 30 Days, #30 TAB Prov:CARL PARKER MD 04/28/21 Aspirin (Aspir-Low Ec) 81 Mg Tb, 81 MG PO DAILY, #30 TAB Prov:DAVID HIGUERA M.D. 08/06/14 Glimepiride (Glimepiride) 1 Mg Tab, 1 MG PO DAILY, #30 TAB Prov:DAVID HIGUERA M.D. 08/06/14 [Atorvastatin Calcium] 20 MG TB No Conflict Check, 20 MG PO HS, #30 TAB Prov:DAVID HIGUERA M.D. 08/06/14 Reported Medications Losartan Potassium (Losartan Potassium) 100 Mg Tab, 1 TAB PO DAILY, #30 TAB 5 Refills 04/26/21 Insulin NPH (Human) (Isophane) (Novolin N Flexpen) 100 Unit/Ml Inj, 100 UNIT SC, INJ 04/26/21 Atorvastatin Calcium (ATORVASTATIN CALCIUM) 40 Mg Tab, 1 TAB PO DAILY, #30 TAB 5 Refills 04/26/21 Omeprazole Magnesium (Omeprazole) 20 Mg Tab, 20 MG PO DAILYPRN, TAB 04/26/21 Metformin Hydrochloride (Metformin Hcl) 1,000 Mg Tab, 1 TAB PO BID, #60 TAB 5 Refills 04/26/21 Chlorthalidone (Chlorthalidone) 25 Mg Tab, 25 MG PO DAILY, TAB 04/26/21 Finasteride (Finasteride) 5 Mg Tab, 1 TAB PO DAILY, #30 TAB 11 Refills 04/26/21 Tamsulosin HCl (Tamsulosin Hydrochloride) 0.4 Mg Cap, 0.4 MG PO DAILY, CAP 04/26/21 Amlodipine Besylate-Benazepril (AMLODIPINE BESYLATE/BENAZ) 1 Cap Cap, 1 CAP PO DAILY, #30 CAP 5 Refills 08/04/14 Sitagliptin Phosphate (Januvia) 100 Mg Tab, 1 TAB PO DAILY, #30 TAB 5 Refills 08/04/14 Information Source: Patient, Spouse Mode of Arrival: Ambulatory Severity: Moderate Timing: Minutes Duration: Since onset Prehospital treatment: None Location: Chest (R) Radiation: No Radiation Quality: Sharp Onset: At Rest Cardiac Risk Factors: Hyperlipidemia, HTN, Diabetes PE Risk Factors: Recent Surgery Past Medical History PAST MEDICAL HISTORY: CVA, DM, High Lipids, HTN, TIA Surgical History: Denies all surgeries Family History Family History: Unobtainable Social History Smoker: Non-Smoker Alcohol: Denies ETOH Use Drugs: Denies Drug Use Lives In: Home Constitutional: denies: chills, diaphoresis, fatigue, fever, malaise, sweats, weakness, others EENTM: denies: blurred vision, double vision, ear bleeding, ear discharge, ear drainage, ear pain, ear ringing, eye pain, eye redness, hearing loss, mouth pain, mouth swelling, nasal discharge, nose bleeding, nose congestion, nose pain, photophobia, tearing, throat pain, throat swelling, voice changes, others Respiratory: denies: cough, hemoptysis, orthopnea, SOB at rest, shortness of breath, SOB with excertion, stridor, wheezing, others Cardiovascular: reports: chest pain; denies: dizzy spells, diaphoresis, Dyspnea on exertion, edema, irregular heart beat, left arm pain, lightheadedness, palpitations, PND, syncope, others Gastrointestinal: denies: abdomen distended, abdominal pain, blood streaked bowels, constipated, diarrhea, dysphagia, difficulty swallowing, hematemesis, melena, nausea, poor appetite, poor fluid intake, rectal bleeding, rectal pain, vomiting, others Genitourinary: denies: burning, dysuria, flank pain, frequency, hematuria, incontinence, penile discharge, penile sore, pain, testicle pain, testicle swelling, urgency, others Neurological: denies: dizziness, fainting, headache, left sided numbness, left sided weakness, numbness, paresthesia, pre-existing deficit, right sided numbness, right sided weakness, seizure, speech problems, tingling, tremors, weakness, others Musculoskeletal: denies: back pain, gout, joint pain, joint swelling, muscle pain, muscle stiffness, neck pain, others Integumetry: denies: bruises, change in color, change in hair/nails, dryness, laceration, lesions, lumps, rash, wounds, others Allergic/Immunocompromised: denies: Difficulty Healing, Frequent Infections, Hives, Itching, others Hematologic/Lymphatic: denies: anemia, blood clots, easy bleeding, easy bruising, swollen glands, others Endocrine: denies: excessive hunger, excessive sweating, excessive thirst, excessive urination, flushing, intolerance to cold, intolerance to heat, unexplained weight gain, unexplained weight loss, others Psychiatric: denies: anxiety, bipolar disorder, depression, hopeless, panic disorder, schizophrenia, sleepless, suicidal, others All Other Systems: Reviewed and Negative Physical Exam General Appearance: Moderate Distress HEENT: Normal ENT Inspection, Pharynx Normal, TMs Normal Neck: Full Range of Motion, Non-Tender, Normal, Normal Inspection Respiratory: Chest Non-Tender, Lungs Clear, No Accessory Muscle Use, No Respiratory Distress, Normal Breath Sounds Cardiovascular: No Edema, No JVD, No Murmur, No Gallop, Normal Peripheral Pulses, Regular Rate/Rhythm Breast Exam: Deferred Gastrointestinal: No Organomegaly, No Pulsatile Mass, Normal Bowel Sounds, RUQ, Soft, Tenderness Genitalia: Deferred Pelvic: Deferred Rectal: Deferred Extremities: No calf tenderness, Normal capillary refill, Normal inspection, Normal range of motion, Non-tender, No pedal edema Musculoskeletal : Apperance: Normal Neurologic: Alert, blockmason II-XII nml as Tested, Motor Weakness, Normal Affect, Normal Mood, No Sensory Deficits Cerebellar Function: Normal Reflexes: Normal Skin: Dry, Pallor, Warm Lymphatic: No Adenopathy EKG EKG : Pulse Rate (adult): 119 Vergas: Normal Cardiac Rhythm: ST Block: None Hypertrophy: None ST: Normal Was a procedure done? Was a procedure done?: No CP Differential Dx Differential Diagnosis: Angina, Other (Cholecystitis) Differential Diagnosis: CHF Differential Diagnosis: Cholelithiasis, Costochondritis, Gastritis X-Ray, Labs, Meds, VS Vital Signs Date Time Temp Pulse Resp B/P (MAP) Pulse Ox O2 Delivery O2 Flow Rate FiO2 11/27/24 16:00 104 11/27/24 15:34 98 30 120/74 11/27/24 15:00 104 22 120/74 (89) 91 11/27/24 13:58 108 26 91 Room Air* 0 21 11/27/24 13:45 115 32 118/73 11/27/24 13:00 107 30 118/73 (88) 92 11/27/24 12:00 114 11/27/24 11:30 109 22 127/79 11/27/24 10:57 98.4 134 28 179/110 (133) 94 11/27/24 10:55 98.4 123 25 156/88 (110) 93 98.4 11/27/24 10:54 128 38 156/88 11/27/24 10:43 126 11/27/24 10:37 119 11/27/24 10:29 119 Lab Test 11/27/24 13:52 11/27/24 11:33 11/27/24 10:34 Range/Units Urine Color Pending Urine Clarity Pending Urine pH Pending Urine Specific Essie Pending Urine Protein Pending Urine Ketones Pending Urine Blood Pending Urine Nitrite Pending Urine Bilirubin Pending Urine Urobilinogen Pending Urine Leukocyte Esterase Pending Urine RBC Pending Urine Microscopic WBC Pending Urine Squamous Epithelial Cells Pending Urine Bacteria Pending Urine Glucose Pending Troponin I High Sensitivity 23 8 7 </=54 ng/L White Blood Count 18.8 H 4.4-10.8 10^3/uL Red Blood Count 4.68 4.5-5.90 10^6/uL Hemoglobin 12.0 L 13.5-17.5 g/dL Hematocrit 37.2 L 41.0-53.0 % Mean Corpuscular Volume 79.5 L 80.0-100.0 fL Mean Corpuscular Hemoglobin 25.7 L 28.0-32.0 pg Mean Corpuscular Hemoglobin Concent 32.4 32.0-36.0 g/dL Red Cell Distribution Width 20.6 H 11.8-14.3 % Platelet Count 220 140-450 10^3/uL Mean Platelet Volume 9.1 6.9-10.8 fL Neutrophils (%) (Auto) 86.6 H 37.0-80.0 % Lymphocytes (%) (Auto) 8.8 L 10.0-50.0 % Monocytes (%) (Auto) 4.5 0.0-12.0 % Eosinophils (%) (Auto) 0.0 0.0-7.0 % Basophils (%) (Auto) 0.1 0.0-2.0 % Neutrophils # (Auto) 16.3 H 1.6-8.6 10 ^3/uL Lymphocytes # (Auto) 1.7 0.4-5.4 10 ^3/uL Monocytes # (Auto) 0.9 0-1.3 10 ^3/uL Eosinophils # (Auto) 0 0-0.8 10 ^3/uL Basophils # (Auto) 0 0-0.2 10 ^3/uL Nucleated Red Blood Cells 0.1 % Prothrombin Time 11.7 9.3-11.8 sec Prothrombin Time INR 1.12 0.9-1.15 Activated Partial Thromboplast Time 38.8 H 24.5-34.5 SEC D-Dimer, Quantitative 4.02 H 0.0-0.49 mg/L FEU Sodium Level 132 L 136-145 mmol/L Potassium Level 4.5 3.5-5.1 mmol/L Chloride Level 98 98-107 mmol/L Carbon Dioxide Level 20 20-31 mmol/L Anion Gap 14 5-15 Blood Urea Nitrogen 23 9-23 mg/dL Creatinine 1.44 H 0.700-1.30 mg/dL Glomerular Filtration Rate Calc 56 >90 mL/min BUN/Creatinine Ratio 16.0 10.0-20.0 Serum Glucose 211 H 74-106 mg/dL Hemoglobin A1c Pending Calcium Level 9.2 8.7-10.4 mg/dL Total Bilirubin 0.9 0.2-1.0 mg/dL Aspartate Amino Transferase (AST) 20 13-40 U/L Alanine Aminotransferase (ALT) 16 7-40 U/L Alkaline Phosphatase 242 H 46-116 U/L Total Protein 7.2 5.7-8.2 g/dL Albumin 4.2 3.2-4.8 g/dL Current Medications Medications (Trade) Dose Ordered Sig/Naveen Route Start Time Stop Time Status Last Admin Ondansetron HCl (Zofran) 4 mg ONCE ONCE IV 11/27/24 10:45 11/27/24 10:46 DC 11/27/24 10:54 Morphine Sulfate 4 mg ONCE ONCE IV 11/27/24 10:45 11/27/24 10:46 DC 11/27/24 10:54 Hydromorphone HCl (Dilaudid Injection) 1 mg ONCE ONCE IV 11/27/24 13:30 11/27/24 13:31 DC 11/27/24 13:45 Chest X-Ray Impression: No acute cardiopulmonary disease. Abdomen/Pelvis CT Scan Impression: 1. Gallbladder is distended and filled with mildly hyperdense sludge. There is likely gallbladder wall thickening. There is pericholecystic fat stranding. Findings are consistent with acute cholecystitis. 2. Small amount of perihepatic ascites.. 3. Moderate amount of stool in the colon. The patient was given morphine 4 mg IV push for the pain The patient was given Zofran 4 mg IV push for the nausea The pain was persistent so the patient was given Dilaudid 1 mg IV push The patient's CBC shows an elevated white blood cell count of 18.8 The chemistry panel is within normal limits The liver enzymes are not elevated at this time At this time, the patient is troponin level is within normal limits The D-dimer is elevated but we feel that this is most likely secondary to the patient's previous procedure At this time, the patient was being admitted Images Reviewed?: Images reviewed and evaluated by me Time of 1ST Reevaluation: 11:00 Reevaluation 1ST: Unchanged Time of 2ND Reevaluation: 17:45 Reevaluation 2ND: Improved Patient Education/Counseling: Diagnosis, Treatment, Prognosis Family Education/Counseling: No Family Present Departure 1 Departure Time of Disposition: 17:46 Impression: Primary Impression: Intractable abdominal pain Additional Impression: Acute cholecystitis Disposition: 09 ADMITTED INPATIENT Admit to: [facility] Condition: Fair Critical Care Note Critical Care Time?: No Stability Stability form required: Yes Unstable for transfer: Telemetry monitoring (Telemetry monitoring required), ED Physician Assesment (Clinical assesment) Heart Score Heart Score: Heart Score Response (Comments) Value History N/A 0 EKG N/A 0 Age N/A 0 Risk Factors N/A 0 Troponin N/A 0 Total 0 I personally scribed for SHRUTHI STEWART MD ([email or web address]) on 11/27/24 at 10:37. Electronically submitted by Timo Liu ([email or web address]). I personally scribed for SHRUTHI STEWART MD ([email or web address]) on 11/27/24 at 13:01. Electronically submitted by Tiom Liu ([email or web address]). I personally scribed for SHRUTHI STEWART MD ([email or web address]) on 11/27/24 at 16:55. Electronically submitted by Timo Liu ([email or web address]). SHRUTHI STEWART MD Nov 27, 2024 10:37
[2024-11-27] MEDS: ONDANSETRON HCL 4 MG/2 ML VIAL IV ONE ×2 (10:54→13:30)
[2024-11-27] MEDS: MORPHINE SULFATE 4 MG/ML SYR/VIAL IV ONE (10:54)
[2024-11-27 10:55] LABS: Basophils # (auto) 0 10 ^3/uL (0-0.2); Basophils % (auto) 0.1 % (0.0-2.0); Eosinophils # (auto) 0 10 ^3/uL (0-0.8); Hematocrit 37.2 % (41.0-53.0); Lymphocytes # (auto) 1.7 10 ^3/uL (0.4-5.4); Monocytes # (auto) 0.9 10 ^3/uL (0-1.3); Red Cell Distribution Width 20.6 % (11.8-14.3)
[2024-11-27 11:00] LABS: Lymphocytes % (auto) 8.8 % (10.0-50.0); Mean Corpuscular Hemoglobin 25.7 pg (28.0-32.0); Mean Corpuscular Hgb Conc. 32.4 g/dL (32.0-36.0); Mean Corpuscular Volume 79.5 fL (80.0-100.0); Monocytes % (auto) 4.5 % (0.0-12.0); Neutrophils # (auto) 16.3 10 ^3/uL (1.6-8.6); Neutrophils % (auto) 86.6 % (37.0-80.0); Nucleated Red Blood Cells % 0.1 %; Platelet Count (auto) 220 10^3/uL (140-450); Red Blood Cells 4.68 10^6/uL (4.5-5.90); White Blood Cell 18.8 10^3/uL (4.4-10.8)
[2024-11-27 11:05] LABS: INR 1.12 (0.9-1.15); Partial Thromboplastin Time 38.8 SEC (24.5-34.5); Prothrombin Time 11.7 sec (9.3-11.8)
--- NOTE | 2024-11-27 11:13 | DVH ---
CHEST RADIOGRAPH Indication: cp Technique: Single frontal view of the chest was obtained Comparison: XY CHEST PORTABLE on DOS: 10/14/24, XY CHEST XRAY 1 VIEW on DOS: 10/13/24, XY CHEST XRAY 1 VIEW on DOS: 05/26/23 FINDINGS: Lines and Tubes: None Lungs: No focal consolidation. Pleura: No effusion. No pneumothorax. Cardiomediastinal contours: Unremarkable Bones: No acute osseous abnormality. IMPRESSION: No acute cardiopulmonary disease.
[2024-11-27 11:18] LABS: Alanine Aminotransferase 16 U/L (7-40); Albumin 4.2 g/dL (3.2-4.8); Anion Gap 14 (5-15); Aspartate Aminotransferase 20 U/L (13-40); Bilirubin, Total 0.9 mg/dL (0.2-1.0); Blood Urea Nitrogen 23 mg/dL (9-23); Calcium 9.2 mg/dL (8.7-10.4); Chloride 98 mmol/L (98-107); Potassium 4.5 mmol/L (3.5-5.1); Total Protein 7.2 g/dL (5.7-8.2)
[2024-11-27 11:23] LABS: Alkaline Phosphatase 242 U/L (46-116); Carbon Dioxide 20 mmol/L (20-31); Glucose 211 mg/dL (74-106); Sodium 132 mmol/L (136-145)
[2024-11-27] MEDS: HYDROmorphone HCL 2 MG/ML VL/or syr IV ONE (13:45)
[2024-11-27 13:58] VITALS: PULSE 108; RESP 26; O2SAT 91
--- NOTE | 2024-11-27 14:02 | DVH ---
CT ABDOMEN AND PELVIS WITHOUT CONTRAST CLINICAL HISTORY: right abd pain TECHNIQUE: Multiple contiguous axial images of the abdomen and pelvis without intravenous contrast. The images were reformatted degenerate coronal and sagittal reconstructions. All CT scans at this medical facility are performed using dose modulation techniques as appropriate t o a performed exam including the following:Automated exposure control was utilized; adjustment of the MA and/or KV according to patient size; and use of iterative reconstruction technique. Radiation Dose Information: CT Dose: CTDI volume is 7.2 mGy. Dose-length product is 455 mGy*cm Comparison: CT CT AB PEL WO CON-NO ORAL OR IV on DOS: 10/13/24 FINDINGS: Evaluation of the abdomen and pelvis is limited without intravenous contrast. The gallbladder is distended and filled with mildly hyperdense sludge. There is likely gallbladder wa ll thickening. There is pericholecystic fat stranding. The findings are consistent with acute curt cystitis. There is small amount of perihepatic ascites.. The liver, pancreas, kidneys, adrenal glands, and spleen appear within normal limits. There is no gross evidence of abdominal lymphadenopathy. The stomach grossly appears unremarkable. The small and large bowel loops demonstrate normal caliber . There is moderate amount of stool in the colon. The abdominal aorta and IVC appear within normal limits. The bladder appears unremarkable for the degree of distention. Pelvic organ appears within normal garza its. There is no gross evidence of a pelvic mass. There is no free fluid collection. There is scarring versus atelectasis in the posterior lung bases, [id number]. There is no acute osseous abnormality. IMPRESSION: 1. Gallbladder is distended and filled with mildly hyperdense sludge. There is likely gallbladder wal l thickening. There is pericholecystic fat stranding. Findings are consistent with acute cholecystit is. 2. Small amount of perihepatic ascites.. 3. Moderate amount of stool in the colon. The results were discussed with dr. Oropeza by Dr. Bebeto Reed on 11/27/2024,, 2:00 p.m... HS:Y
--- NOTE | 2024-11-27 14:32 | DVHSR ---
APPROVED REPORT EXAM: LIMITED Two-dimensional and M-mode echocardiogram. Blood Pressure: 179/110 mmHg INDICATION Right sided CP Limited for Effusion RISK FACTORS Height: 5' 5", Weight: 160 DIMENSIONS LVDd3.8 (3.8-5.7cm)LA (2D)3.6 (1.9-4.0cm)Aortic Root3.6 (2.0-3.7cm) LVDs2.7 (2.5-4.0cm)LA (MM) (1.9-4.0cm)Aortic Cusp Exc1.9 (1.5-2.0cm) EF (%) 57.0 (55-70%)Rt. Atrium (1.9-4.0cm)Asc. Aorta cm IVSd1.1 (0.7-1.1cm)RV (D) (1.8-2.4cm) PWd0.9 (0.7-1.1cm) Mitral Valve MitralMitral Stenosis E/A ratio0.02D MVAcm2 Aortic Valve Aortic ValveAortic Stenosis LVOT Diameter2.3 (1.8-2.4cm)Doppler AVAcm2 Other Information Quality : LimitedRhythm : Conclusion This is a limited echo done to assess for pericardial effusion. The left ventricle is of normal size. Systolic function appears to be normal with ejection fraction of 60-65%. Right ventricle is likely of normal size and systolic function. There is ghslexvh-ev-vel ge pericardial effusion mostly in around the posterior left ventricle and lateral left ventricle. Th ere is a small effusion around the right ventricular free wall. No significant variation in the mitr al or the tricuspid inflow with respiration. The IVC is not visualized. Impressions: Emjrgbmi-gq-feokq pericardial effusion surrounding the left ventricular posterior and lateral pimentel. No evidence of tamponade physiology based on mitral and tricuspid Doppler inflows Patient is tachycardic the time of the study with heart rate 120 beats per minute. Prior echo from September of 2024 showed very large circumferential pericardial effusion.
[2024-11-27] MEDS ORDERED: ACETAMINOPHEN 325 MG TAB PO PRN (17:00)
[2024-11-27] MEDS ORDERED: ONDANSETRON HCL 4 MG/2 ML VIAL IV PRN (17:00)
[2024-11-27] MEDS ORDERED: DEXTROSE (50%) 50ML SYRG IV PRN (17:00)
[2024-11-27] MEDS ORDERED: VANCOMYCIN PER PHARMACY 0 MG IV SCH (17:00)
[2024-11-27] MEDS ORDERED: PIPERACILLIN-TAZOB 3.375GM 100 ML IV ONE (17:00)
--- NOTE | 2024-11-27 17:16 | DVHHP2 ---
History of Present Illness Reason for Visit: Abdominal pain History of Present Illness Cortez Burton is a 59-year-old male with past medical history of hypertension, hyperlipidemia, diabetes, CVA with right-sided deficits, and abdominal surgery 1 month ago at [facility] who presents to the ED for right lower quadrant abdominal pain, and chest pain that radiates to the left shoulder. Patient reports the abdominal pain is 10/10 intermittent and sharp. He states that there are no triggering factors. Patient denies fevers, chills, recent illnesses, recent sick contacts, nausea, vomiting, diarrhea, lightheadedness, and dizziness. Patient reports that he uses a front wheel walker and has his at home to help him mobilized. 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 Endocrine: Diabetes Past Surgical History: Other (Abdominal surgery) Family History: Other (Both parents ) Smoke: No ALCOHOL: none Drugs: None Lives: Alone Domestic Violence: Neg Review of Systems Constitutional: No: Fever, Chills, Sweats, Weakness, Malaise, Other Eyes: No: Pain, Vision change, Conjunctivae inflammation, Eyelid inflammation, Other, Redness ENT: No: Ear pain, Ear discharge, Nose pain, Nose discharge, Nose congestion, Mouth pain, Mouth swelling, Throat pain, Throat swelling, Other Respiratory: No: Cough, Dry, Shortness of breath, SOB with excertion, Wheezing, Hemoptysis, Pleuritic Pain, Sputum, Wheezing, Other Cardiovascular: Chest Pain; No: Palpitations, Orthopnea, Paroxysmal Noc. Dyspnea, Edema, Lt Headedness, Other Gastrointestinal: Abdominal Pain; No: Nausea, Vomiting, Diarrhea, Constipation, Melena, Hematochezia, Other Musculoskeletal: arm pain; No: other, neck pain, shoulder pain, back pain, hand pain, leg pain, foot pain Skin: No: Rash, Lesions, Jaundice, Bruising, Other Neurological: Weakness (Right-sided weakness from CVA); No: Numbness, Incoordination, Change in speech, Confusion, Seizures, Other Allergies: Coded Allergies: NO KNOWN ALLERGIES (Unverified , 04/25/21) Medications Current Medications Medications Dose Ordered Sig/Naveen Route Start Time Stop Time Status Last Admin Dose Admin Aspirin 81 mg DAILY PO 11/28/24 10:00 UNV Chlorthalidone 25 mg DAILY PO 11/28/24 10:00 UNV Clopidogrel Bisulfate 75 mg DAILY PO 11/28/24 10:00 UNV Finasteride 5 mg DAILY PO 11/28/24 10:00 UNV Tamsulosin HCl 0.4 mg DAILY PO 11/28/24 10:00 UNV Patient Own Medication 1 cap DAILY PO 11/28/24 10:00 UNV Patient Own Medication 1 tab DAILY PO 11/28/24 10:00 UNV Patient Own Medication 20 mg DAILYPRN PO 11/28/24 10:00 UNV Exam Vital Signs Vital Signs Date Time Temp Pulse Resp B/P (MAP) Pulse Ox O2 Delivery O2 Flow Rate FiO2 11/27/24 16:00 104 11/27/24 15:34 30 120/74 11/27/24 15:00 91 11/27/24 13:58 Room Air* 0 21 11/27/24 10:57 98.4 General Appearance: Alert, Oriented X3, Cooperative, No acute distress HEENT: Atraumatic, PERRLA, EOMI, Mucous membr. moist/pink Respiratory: Clear to auscultation, Normal air movement Cardiovascular: Normal S1, Normal S2, No murmurs Abdominal: Soft Extremities: No clubbing, No cyanosis, No edema, Normal pulses Neuro: Normal speech, Normal tone, Sensation intact Psych/Mental Status: Mental status NL, Mood NL Labs/Xrays Labs Test 11/27/24 13:52 11/27/24 10:34 Range/Units Troponin I High Sensitivity 23 </=54 ng/L White Blood Count 18.8 H 4.4-10.8 10^3/uL Red Blood Count 4.68 4.5-5.90 10^6/uL Hemoglobin 12.0 L 13.5-17.5 g/dL Hematocrit 37.2 L 41.0-53.0 % Mean Corpuscular Volume 79.5 L 80.0-100.0 fL Mean Corpuscular Hemoglobin 25.7 L 28.0-32.0 pg Mean Corpuscular Hemoglobin Concent 32.4 32.0-36.0 g/dL Red Cell Distribution Width 20.6 H 11.8-14.3 % Platelet Count 220 140-450 10^3/uL Mean Platelet Volume 9.1 6.9-10.8 fL Neutrophils (%) (Auto) 86.6 H 37.0-80.0 % Lymphocytes (%) (Auto) 8.8 L 10.0-50.0 % Monocytes (%) (Auto) 4.5 0.0-12.0 % Eosinophils (%) (Auto) 0.0 0.0-7.0 % Basophils (%) (Auto) 0.1 0.0-2.0 % Neutrophils # (Auto) 16.3 H 1.6-8.6 10 ^3/uL Lymphocytes # (Auto) 1.7 0.4-5.4 10 ^3/uL Monocytes # (Auto) 0.9 0-1.3 10 ^3/uL Eosinophils # (Auto) 0 0-0.8 10 ^3/uL Basophils # (Auto) 0 0-0.2 10 ^3/uL Nucleated Red Blood Cells 0.1 % Prothrombin Time 11.7 9.3-11.8 sec Prothrombin Time INR 1.12 0.9-1.15 Activated Partial Thromboplast Time 38.8 H 24.5-34.5 SEC D-Dimer, Quantitative 4.02 H 0.0-0.49 mg/L FEU Sodium Level 132 L 136-145 mmol/L Potassium Level 4.5 3.5-5.1 mmol/L Chloride Level 98 98-107 mmol/L Carbon Dioxide Level 20 20-31 mmol/L Anion Gap 14 5-15 Blood Urea Nitrogen 23 9-23 mg/dL Creatinine 1.44 H 0.700-1.30 mg/dL Glomerular Filtration Rate Calc 56 >90 mL/min BUN/Creatinine Ratio 16.0 10.0-20.0 Serum Glucose 211 H 74-106 mg/dL Calcium Level 9.2 8.7-10.4 mg/dL Total Bilirubin 0.9 0.2-1.0 mg/dL Aspartate Amino Transferase (AST) 20 13-40 U/L Alanine Aminotransferase (ALT) 16 7-40 U/L Alkaline Phosphatase 242 H 46-116 U/L Total Protein 7.2 5.7-8.2 g/dL Albumin 4.2 3.2-4.8 g/dL CT ABDOMEN AND PELVIS WITHOUT CONTRAST CLINICAL HISTORY: right abd pain TECHNIQUE: Multiple contiguous axial images of the abdomen and pelvis without intravenous contrast. The images were reformatted degenerate coronal and sagittal reconstructions. All CT scans at this medical facility are performed using dose modulation techniques as appropriate to a performed exam including the following:Automated exposure control was utilized; adjustment of the MA and/or KV according to patient size; and use of iterative reconstruction technique. Radiation Dose Information: CT Dose: CTDI volume is 7.2 mGy. Dose-length product is 455 mGy*cm Comparison: CT CT AB PEL WO CON-NO ORAL OR IV on DOS: 10/13/24 FINDINGS: Evaluation of the abdomen and pelvis is limited without intravenous contrast. The gallbladder is distended and filled with mildly hyperdense sludge. There is likely gallbladder wall thickening. There is pericholecystic fat stranding. The findings are consistent with acute cholecystitis. There is small amount of perihepatic ascites.. The liver, pancreas, kidneys, adrenal glands, and spleen appear within normal limits. There is no gross evidence of abdominal lymphadenopathy. The stomach grossly appears unremarkable. The small and large bowel loops demonstrate normal caliber. There is moderate amount of stool in the colon. The abdominal aorta and IVC appear within normal limits. The bladder appears unremarkable for the degree of distention. Pelvic organ appears within normal limits. There is no gross evidence of a pelvic mass. There is no free fluid collection. There is scarring versus atelectasis in the posterior lung bases, [id number]. There is no acute osseous abnormality. IMPRESSION: 1. Gallbladder is distended and filled with mildly hyperdense sludge. There is likely gallbladder wall thickening. There is pericholecystic fat stranding. Findings are consistent with acute cholecystitis. 2. Small amount of perihepatic ascites.. 3. Moderate amount of stool in the colon. CHEST RADIOGRAPH Indication: cp Technique: Single frontal view of the chest was obtained Comparison: XY CHEST PORTABLE on DOS: 10/14/24, XY CHEST XRAY 1 VIEW on DOS: 10/13/24, XY CHEST XRAY 1 VIEW on DOS: 05/26/23 FINDINGS: Lines and Tubes: None Lungs: No focal consolidation. Pleura: No effusion. No pneumothorax. Cardiomediastinal contours: Unremarkable Bones: No acute osseous abnormality. IMPRESSION: No acute cardiopulmonary disease. Assessment/Plan Assessment/Plan Assessment/Plan: Intractable abdominal pain likely due to acute cholecystitis Perihepatic ascites MARIBEL Leukocytosis likely due to acute cholecystitis Hyponatremia Chest pain Labs EKG Echo Pain management Antiemetics Chest x-ray noted CT abdomen and pelvis Troponin negative x3 UA Elevated D-dimer PT/PTT A.m. labs General surgery consult Diabetes type 2 uncontrolled Hemoglobin A1c ISS and Accu-Cheks Chronic hypertension Continue home medications Chronic hyperlipidemia Continue home medications CVA with right-sided deficits Monitor FEN/PPX NPO IV fluids DVT prophylaxis -continue home medications, Plavix PUD prophylaxis -Protonix Admit to tele Patient states he doesn't take any home medications Discussed plan of care with patient and nurse Plan discussed with: Patient My Orders Orders - REAGANHUBERTJanine Eber [facility] RN Procedure Category Date Status Time Aspirin Enteric PHA 11/28/24 Logged Coated Tablet 10:00 Chlorthalidone PHA 11/28/24 Logged (Chlorthalidone) 10:00 Clopidogrel Bisulfate PHA 11/28/24 Logged (Plavix) 10:00 Finasteride Tablet PHA 11/28/24 Logged (Proscar Tablet) 10:00 Tamsulosin PHA 11/28/24 Logged Hydrochloride (Flomax) 10:00 (Nf) Amlodipine PHA 11/28/24 Logged Besylate-Benazepril 10:00 (Nf) Losartan PHA 11/28/24 Logged Potassium 10:00 (Nf) Omeprazole PHA 11/28/24 Logged Magnesium (Omeprazole) 10:00 * Surgical Consult CONS 11/27/24 Transmitted Vancomycin Per PHA 11/27/24 Transmitted Pharmacy 17:00 Zosyn Extended PHA 11/27/24 Transmitted Infusion 22:00 Zosyn Extended PHA 11/27/24 Transmitted Infusion 17:00 NS PHA 11/27/24 Transmitted 17:00 Hemoglobin A1c LAB 11/27/24 Transmitted 16:59 Glucose Blood PHA 11/27/24 Transmitted (Accu-Chek Comfort 18:00 Mild Sliding Scale PHA 11/27/24 Transmitted Npo - Q6hr 18:00 Dextrose 50% Syringe PHA 11/27/24 Transmitted 17:00 Admit ADMIT 11/27/24 Transmitted 16:59 Allergies GAETANO 11/27/24 Transmitted 16:59 Code Status CODE 11/27/24 Transmitted 16:59 Hydrocodone-Acet PHA 11/27/24 Transmitted 5/325mg Tab (Seco 17:00 Ondansetron Hcl PHA 11/27/24 Transmitted (Zofran) 17:00 Complete Blood Count LAB 11/28/24 Verified 04:00 Comprehensive LAB 11/28/24 Verified Metabolic Panel 04:00 Npo (Nothing By DIET 11/27/24 Transmitted Mouth) Diet Dinner Acetaminophen Tablet PHA 11/27/24 Transmitted (Tylenol Tablet) 17:00 Morphine Sulfate PHA 11/27/24 Transmitted Injection 17:00 Date of Service: Nov 27, 2024 Billing Provider: JULIETH KIRK Common Visit Codes: [id number] INP/OBS CARE (HIGH) JULIETH KIRK Nov 27, 2024 17:16
[2024-11-27] MEDS: VANCOMYCIN 1.5GM/300ML 300 ML IV ONE ×2 (18:00→23:59)
[2024-11-27] MEDS: SODIUM CHLORIDE 0.9% 1,000 ML IV SCH (18:07)
[2024-11-27] MEDS: ACCU-CHEK COMFORT CURVE STRIP VI SCH (18:07)
[2024-11-27] MEDS: PIPERACILLIN-TAZOB 3.375GM 100 ML IV SCH (18:10)
[2024-11-27] MEDS: InsuLIN REG 1unit/0.01ml Soln (100units/ml) SC SCH (18:16)
[2024-11-27] MEDS: MORPHINE SULFATE INJ 2 MG/ml SYRG IV PRN (18:16)
[2024-11-27 19:30] VITALS: PULSE 107; RESP 23; O2SAT 91
[2024-11-27] MEDS: HYDROcodone-ACET 5/325MG TAB PO PRN (19:35)
[2024-11-27 22:51] VITALS: BP 145/82; PULSE 90; RESP 20; TEMP 98.4; O2SAT 97
[2024-11-28] VITALS (9 sets, daily range): BP systolic 113–135; BP diastolic 69–74; PULSE 68–101; RESP 18–20; TEMP 98–99.5; O2SAT 94–100
[2024-11-28] MEDS ORDERED: NITROGLYCERIN 0.4 MG SL TAB SL PRN (02:30)
[2024-11-28] MEDS: MORPHINE SULFATE INJ 2 MG/ml SYRG IV PRN (02:39)
[2024-11-28 03:39] LABS: Basophils # (auto) 0 10 ^3/uL (0-0.2); Basophils % (auto) 0.2 % (0.0-2.0); Eosinophils # (auto) 0.1 10 ^3/uL (0-0.8); Hemoglobin 10.8 g/dL (13.5-17.5); Lymphocytes # (auto) 0.9 10 ^3/uL (0.4-5.4); Lymphocytes % (auto) 7.3 % (10.0-50.0); Mean Corpuscular Hemoglobin 25.4 pg (28.0-32.0); Mean Corpuscular Hgb Conc. 31.9 g/dL (32.0-36.0); Mean Corpuscular Volume 79.6 fL (80.0-100.0); Monocytes # (auto) 0.7 10 ^3/uL (0-1.3); Monocytes % (auto) 5.6 % (0.0-12.0); Neutrophils # (auto) 11.1 10 ^3/uL (1.6-8.6); Neutrophils % (auto) 85.9 % (37.0-80.0); Nucleated Red Blood Cells % 0.1 %; Platelet Count (auto) 194 10^3/uL (140-450); Red Blood Cells 4.27 10^6/uL (4.5-5.90); Red Cell Distribution Width 20.6 % (11.8-14.3); White Blood Cell 12.9 10^3/uL (4.4-10.8)
[2024-11-28 03:53] LABS: Alanine Aminotransferase 12 U/L (7-40); Albumin 3.9 g/dL (3.2-4.8); Anion Gap 13 (5-15); Aspartate Aminotransferase 17 U/L (13-40); Blood Urea Nitrogen 21 mg/dL (9-23); Calcium 9.1 mg/dL (8.7-10.4); Chloride 101 mmol/L (98-107); Potassium 4.5 mmol/L (3.5-5.1)
[2024-11-28 03:54] LABS: Bilirubin, Total 0.8 mg/dL (0.2-1.0); Total Protein 6.4 g/dL (5.7-8.2)
[2024-11-28 04:01] LABS: Alkaline Phosphatase 216 U/L (46-116); Carbon Dioxide 19 mmol/L (20-31); Glucose 139 mg/dL (74-106); Sodium 133 mmol/L (136-145)
--- NOTE | 2024-11-28 08:15 | ECG ---
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
[2024-11-28] MEDS: TAMSULOSIN HYDROCHLORIDE 0.4 MG CAP PO SCH (09:32)
[2024-11-28] MEDS: PANTOPRAZOLE 40 MG TAB PO SCH (09:32)
[2024-11-28] MEDS: LOSARTAN POTASSIUM 50 MG TAB PO SCH (09:34)
[2024-11-28] MEDS: CLOPIDOGREL BISULFATE 75 MG TAB PO SCH (09:35)
[2024-11-28] MEDS: FINASTERIDE 5 MG TAB PO SCH (09:36)
[2024-11-28] MEDS: CHLORTHALIDONE 25 MG TAB PO SCH (09:36)
[2024-11-28] MEDS: ASPirin-EC 81 mg tab PO SCH (09:46)
--- NOTE | 2024-11-28 12:18 | DVHPN2 ---
Reviewed: Care Plan, H&P, Labs, Medications, Previous Orders, Radiology Changes from previous H/P or p: No Changes Eyes: No Pain, No Vision change, No Conjunctivae inflammation, No Eyelid inflammation, No Other, No Redness ENT: No Ear pain, No Ear discharge, No Nose pain, No Nose discharge, No Nose congestion, No Mouth pain, No Mouth swelling, No Throat pain, No Throat swelling, No Other Cardiovascular: Chest Pain; No Palpitations, No Orthopnea, No Paroxysmal Noc. Dyspnea, No Edema, No Lt Headedness, No Other Respiratory: No Cough, No Dry, No Shortness of breath, No SOB with excertion, No Wheezing, No Hemoptysis, No Pleuritic Pain, No Sputum, No Other Gastrointestinal: No Nausea, No Vomiting; Abdominal Pain; No Diarrhea, No Constipation, No Melena, No Hematochezia, No Other Musculoskeletal: No other, No neck pain, No shoulder pain; arm pain; No back pain, No hand pain, No leg pain, No foot pain Skin: No Rash, No Lesions, No Jaundice, No Bruising, No Other Objective Vitals Vital Signs Date Time Temp Pulse Resp B/P (MAP) Pulse Ox O2 Delivery O2 Flow Rate FiO2 11/28/24 09:34 129/71 11/28/24 09:00 98.4 101 20 99 98.4 11/28/24 08:20 Room Air* 0 21 Intake/Output Intake and Output 11/28/24 07:00 Intake Total 775 ml Output Total 400 ml Balance 375 ml Intake Oral 0 ml IV Total 775 ml Output Urine Total 400 ml Medications Current Medications Medications Dose Ordered Sig/Naveen Route Start Time Stop Time Status Last Admin Dose Admin Aspirin 81 mg DAILY PO 11/28/24 10:00 11/28/24 09:46 81 MG Chlorthalidone 25 mg DAILY PO 11/28/24 10:00 11/28/24 09:36 25 MG Clopidogrel Bisulfate 75 mg DAILY PO 11/28/24 10:00 11/28/24 09:35 75 MG Finasteride 5 mg DAILY PO 11/28/24 10:00 11/28/24 09:36 5 MG Tamsulosin HCl 0.4 mg DAILY PO 11/28/24 10:00 11/28/24 09:32 0.4 MG Patient Own Medication 1 cap DAILY PO 11/28/24 10:00 Hold Losartan Potassium 100 mg DAILY PO 11/28/24 10:00 11/28/24 09:34 100 MG Pantoprazole Sodium 40 mg DAILY PO 11/28/24 10:00 11/28/24 09:32 40 MG Vancomycin HCl 0 ml @ 0 mls/hr UD IV 11/27/24 17:00 Piperacillin Sod/ Tazobactam Sod 100 ml @ 25 mls/hr Q8H IV 11/27/24 17:30 11/28/24 09:28 25 MLS/HR Sodium Chloride 1,000 ml @ 75 mls/hr [id number] IV 11/27/24 17:00 11/27/24 18:07 75 MLS/HR Diagnostic Test (Pha) 1 strip Q6HR 11/27/24 18:00 11/28/24 05:47 1 STRIP Insulin Human Regular Q6HR SC 11/27/24 18:00 11/27/24 18:16 3 UNITS Dextrose 50 ml UD PRN IV 11/27/24 17:00 Acetaminophen/ Hydrocodone Bitart 1 tab Q4HP PRN PO 11/27/24 17:00 11/28/24 09:36 1 TAB Ondansetron HCl 4 mg Q4HP PRN IV 11/27/24 17:00 Acetaminophen 650 mg Q6HP PRN PO 11/27/24 17:00 Morphine Sulfate 2 mg Q4HPRN PRN IV 11/27/24 17:00 11/28/24 06:45 2 MG Nitroglycerin 0.4 mg Q5MINP PRN SL 11/28/24 02:30 Morphine Sulfate 2 mg Q30M PRN IV 11/28/24 02:30 11/28/24 02:39 2 MG Laboratory Results Laboratory Tests 11/28/24 03:20 Chemistry Test 11/28/24 03:20 Albumin 3.9 g/dL (3.2-4.8) Calcium Level 9.1 mg/dL (8.7-10.4) Total Protein 6.4 g/dL (5.7-8.2) LFT Test 11/28/24 03:20 Alanine Aminotransferase (ALT) 12 U/L (7-40) Alkaline Phosphatase 216 U/L (46-116) H Aspartate Amino Transferase (AST) 17 U/L (13-40) Total Bilirubin 0.8 mg/dL (0.2-1.0) Urinalysis Test 11/27/24 13:52 Urine Color Pending Urine Clarity Pending Urine pH Pending Urine Specific [place] Pending Urine Protein Pending Urine Ketones Pending Urine Blood Pending Urine Nitrite Pending Urine Bilirubin Pending Urine Urobilinogen Pending Urine Leukocyte Esterase Pending Urine RBC Pending Urine Microscopic WBC Pending Urine Squamous Epithelial Cells Pending Urine Bacteria Pending Urine Glucose Pending Labs and/or images reviewed: Labs reviewed by me, Image(s) reviewed by me Assessment/Plan Assessment/Plan Sepsis secondary to acute cholecystitis: Blood cultures, HIDA scan pending, surgical consult by Dr. Kaiser appreciated Intractable abdominal pain Ascites Hyponatremia Chest pain Diabetes Hypertension History of CVA with right hemiplegia History of Large pericardial effusion status post drainage one month ago [facility] Gout Rheumatoid arthritis History of intubation for acute respiratory failure Patient was transferred to [facility] during the last visit for drainage of the pericardial fluid, stayed for one week in the hospital and discharged home. Shaan Lopez [phone] at bedside Condition serious Time spent 70 minutes Advanced care planning time 20 minutes Patient is full code Plan discussed with: Patient Date of Service: Nov 28, 2024 Billing Provider: LORIE HERNANDEZ MD Common Visit Codes: [id number] CARE 30-74 MIN LORIE HERNANDEZ MD Nov 28, 2024 12:18
--- NOTE | 2024-11-28 12:32 | DVHPN2 ---
Progress Note Date Seen: Nov 28, 2024 Has the PT tested + for MRSA If YES, has PT been informed?: No Medical Necessity Reason Pt with a Central, PICC or Fol: No Objective vital signs Vital Sign Date Time Temp Pulse Resp B/P (MAP) Pulse Ox O2 Delivery O2 Flow Rate FiO2 11/28/24 12:21 98.4 68 18 114/74 (87) 95 98.4 11/28/24 08:20 Room Air* 0 21 Total Intake and Output 11/27/24 11/27/24 11/28/24 15:00 23:00 07:00 Intake Total 375 ml 400 ml Output Total 400 ml Balance 375 ml 0 ml medications Current Medications Medications Dose Ordered Sig/Naveen Route Start Time Stop Time Status Last Admin Dose Admin Chlorthalidone 25 mg DAILY PO 11/28/24 10:00 11/28/24 09:36 25 MG Finasteride 5 mg DAILY PO 11/28/24 10:00 11/28/24 09:36 5 MG Tamsulosin HCl 0.4 mg DAILY PO 11/28/24 10:00 11/28/24 09:32 0.4 MG Patient Own Medication 1 cap DAILY PO 11/28/24 10:00 Hold Losartan Potassium 100 mg DAILY PO 11/28/24 10:00 11/28/24 09:34 100 MG Pantoprazole Sodium 40 mg DAILY PO 11/28/24 10:00 11/28/24 09:32 40 MG Vancomycin HCl 0 ml @ 0 mls/hr UD IV 11/27/24 17:00 Piperacillin Sod/ Tazobactam Sod 100 ml @ 25 mls/hr Q8H IV 11/27/24 17:30 11/28/24 09:28 25 MLS/HR Sodium Chloride 1,000 ml @ 75 mls/hr [id number] IV 11/27/24 17:00 11/27/24 18:07 75 MLS/HR Diagnostic Test (Pha) 1 strip Q6HR 11/27/24 18:00 11/28/24 05:47 1 STRIP Insulin Human Regular Q6HR SC 11/27/24 18:00 11/27/24 18:16 3 UNITS Dextrose 50 ml UD PRN IV 11/27/24 17:00 Acetaminophen/ Hydrocodone Bitart 1 tab Q4HP PRN PO 11/27/24 17:00 11/28/24 09:36 1 TAB Ondansetron HCl 4 mg Q4HP PRN IV 11/27/24 17:00 Acetaminophen 650 mg Q6HP PRN PO 11/27/24 17:00 Morphine Sulfate 2 mg Q4HPRN PRN IV 11/27/24 17:00 11/28/24 06:45 2 MG Nitroglycerin 0.4 mg Q5MINP PRN SL 11/28/24 02:30 Morphine Sulfate 2 mg Q30M PRN IV 11/28/24 02:30 11/28/24 02:39 2 MG laboratory and microbiology Laboratory Tests 11/28/24 03:20 Test 11/28/24 03:20 Range/Units Serum Glucose 139 H 74-106 mg/dL Problem List/Assessment/Plan Problem List/Assessment/Plan 11/28/24 ABDOMINAL PAIN,PATIENT HAD A CVA "FEW YEARS AGO" HAS RIGHT HEMIPLEGIA. ABDOMEN MINIMALLY TENDER IN MID EPIGASTRIUM, AWAITING HIDA SCAN Plan discussed with: Patient ZAYDA GRIGGS MD Nov 28, 2024 12:32
--- NOTE | 2024-11-28 13:16 | ECG ---
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
[2024-11-28] MEDS: VANCOMYCIN 1GM/250ML KIT 250 ML IV SCH (15:37)
--- NOTE | 2024-11-28 15:37 | DVH ---
CLINICAL INFORMATION: 59 years old, Male; r/o cholecystitis. Indication for recent CT was right-diana ed abdominal pain. TECHNIQUE: 6.5 mCi of Choletec were administered intravenously. Images of the upper abdomen were ob tained at 1 minute intervals up to a total time of 60 minutes. Right lateral projection image was obt ained at 60 minutes. Anterior and right lateral delayed images were obtained hours. COMPARISON: None FINDINGS: Gallbladder is not visualized on initial imaging obtained up to 60 minutes or on delayed i mages at 3 hours. There is prompt visualization of the small bowel. IMPRESSION: Gallbladder is not visualized on initial images obtained up to 60 minutes or delayed images at 3 hour s. Findings would be consistent with acute cholecystitis in the appropriate clinical setting. No evid ence for common bile duct obstruction.
[2024-11-29] VITALS (8 sets, daily range): BP systolic 107–127; BP diastolic 65–80; PULSE 81–93; RESP 14–20; TEMP 97.4–98.2; O2SAT 94–99
--- NOTE | 2024-11-29 08:22 | DVHPN2 ---
Progress Note Date Seen: Nov 29, 2024 Has the PT tested + for MRSA If YES, has PT been informed?: No Medical Necessity Reason Pt with a Central, PICC or Fol: No Objective vital signs Vital Sign Date Time Temp Pulse Resp B/P (MAP) Pulse Ox O2 Delivery O2 Flow Rate FiO2 11/29/24 05:00 98.1 86 20 112/68 (83) 94 98.1 11/28/24 20:00 Room Air* 0 21 Total Intake and Output 11/28/24 11/28/24 11/29/24 15:00 23:00 07:00 Intake Total 750 ml 650 ml Output Total 400 ml 500 ml Balance 350 ml 150 ml medications Current Medications Medications Dose Ordered Sig/Naveen Route Start Time Stop Time Status Last Admin Dose Admin Chlorthalidone 25 mg DAILY PO 11/28/24 10:00 11/28/24 09:36 25 MG Finasteride 5 mg DAILY PO 11/28/24 10:00 11/28/24 09:36 5 MG Tamsulosin HCl 0.4 mg DAILY PO 11/28/24 10:00 11/28/24 09:32 0.4 MG Patient Own Medication 1 cap DAILY PO 11/28/24 10:00 Hold Losartan Potassium 100 mg DAILY PO 11/28/24 10:00 11/28/24 09:34 100 MG Pantoprazole Sodium 40 mg DAILY PO 11/28/24 10:00 11/28/24 09:32 40 MG Vancomycin HCl 0 ml @ 0 mls/hr UD IV 11/27/24 17:00 Piperacillin Sod/ Tazobactam Sod 100 ml @ 25 mls/hr Q8H IV 11/27/24 17:30 11/29/24 03:00 25 MLS/HR Sodium Chloride 1,000 ml @ 75 mls/hr [id number] IV 11/27/24 17:00 11/27/24 18:07 75 MLS/HR Diagnostic Test (Pha) 1 strip Q6HR 11/27/24 18:00 11/28/24 18:22 1 STRIP Insulin Human Regular Q6HR SC 11/27/24 18:00 11/27/24 18:16 3 UNITS Dextrose 50 ml UD PRN IV 11/27/24 17:00 Acetaminophen/ Hydrocodone Bitart 1 tab Q4HP PRN PO 11/27/24 17:00 11/29/24 03:38 1 TAB Ondansetron HCl 4 mg Q4HP PRN IV 11/27/24 17:00 Acetaminophen 650 mg Q6HP PRN PO 11/27/24 17:00 Morphine Sulfate 2 mg Q4HPRN PRN IV 11/27/24 17:00 11/28/24 22:06 2 MG Nitroglycerin 0.4 mg Q5MINP PRN SL 11/28/24 02:30 Morphine Sulfate 2 mg Q30M PRN IV 11/28/24 02:30 11/28/24 02:39 2 MG Vancomycin HCl 250 ml @ 250 mls/hr Q12H IV 11/28/24 14:00 11/29/24 01:47 250 MLS/HR laboratory and microbiology Laboratory Tests 11/29/24 04:42 11/28/24 03:20 Test 11/28/24 03:20 Range/Units Serum Glucose 139 H 74-106 mg/dL Problem List/Assessment/Plan Problem List/Assessment/Plan 11/28/24 ABDOMINAL PAIN,PATIENT HAD A CVA "FEW YEARS AGO" HAS RIGHT HEMIPLEGIA. ABDOMEN MINIMALLY TENDER IN MID EPIGASTRIUM, AWAITING HIDA SCAN 11/29/24 HIDA SCAN CONFIRMS THE DIAGNOSIS OF CHOLECYSTITIS. AWAITING CARDIAC CLEARANCE , PLEASE NOTIFY ME WHEN DONE SO WE CAN PROCEED WITH CHOLECYSTECTOMY Plan discussed with: Other ZAYDA GIRGGS MD Nov 29, 2024 08:22
--- NOTE | 2024-11-29 12:13 | DVHPN2 ---
Reviewed: Care Plan, H&P, Labs, Medications, Previous Orders, Radiology Changes from previous H/P or p: No Changes Eyes: No Pain, No Vision change, No Conjunctivae inflammation, No Eyelid inflammation, No Other, No Redness ENT: No Ear pain, No Ear discharge, No Nose pain, No Nose discharge, No Nose congestion, No Mouth pain, No Mouth swelling, No Throat pain, No Throat swelling, No Other Cardiovascular: Chest Pain; No Palpitations, No Orthopnea, No Paroxysmal Noc. Dyspnea, No Edema, No Lt Headedness, No Other Respiratory: No Cough, No Dry, No Shortness of breath, No SOB with excertion, No Wheezing, No Hemoptysis, No Pleuritic Pain, No Sputum, No Other Gastrointestinal: No Nausea, No Vomiting; Abdominal Pain; No Diarrhea, No Constipation, No Melena, No Hematochezia, No Other Musculoskeletal: No other, No neck pain, No shoulder pain; arm pain; No back pain, No hand pain, No leg pain, No foot pain Skin: No Rash, No Lesions, No Jaundice, No Bruising, No Other Objective Vitals Vital Signs Date Time Temp Pulse Resp B/P (MAP) Pulse Ox O2 Delivery O2 Flow Rate FiO2 11/29/24 09:11 88 17 113/73 11/29/24 09:00 97.8 95 97.8 11/29/24 08:10 Room Air* 0 21 Intake/Output Intake and Output 11/29/24 06:59 Intake Total 1400 ml Output Total 900 ml Balance 500 ml Intake Oral 800 ml IV Total 600 ml Output Urine Total 900 ml Medications Current Medications Medications Dose Ordered Sig/Naveen Route Start Time Stop Time Status Last Admin Dose Admin Chlorthalidone 25 mg DAILY PO 11/28/24 10:00 11/29/24 09:10 25 MG Finasteride 5 mg DAILY PO 11/28/24 10:00 11/29/24 09:09 5 MG Tamsulosin HCl 0.4 mg DAILY PO 11/28/24 10:00 11/29/24 09:09 0.4 MG Patient Own Medication 1 cap DAILY PO 11/28/24 10:00 Hold Losartan Potassium 100 mg DAILY PO 11/28/24 10:00 11/29/24 09:10 100 MG Pantoprazole Sodium 40 mg DAILY PO 11/28/24 10:00 11/29/24 09:10 40 MG Vancomycin HCl 0 ml @ 0 mls/hr UD IV 11/27/24 17:00 Piperacillin Sod/ Tazobactam Sod 100 ml @ 25 mls/hr Q8H IV 11/27/24 17:30 11/29/24 09:10 25 MLS/HR Sodium Chloride 1,000 ml @ 75 mls/hr [id number] IV 11/27/24 17:00 11/27/24 18:07 75 MLS/HR Diagnostic Test (Pha) 1 strip Q6HR 11/27/24 18:00 11/28/24 18:22 1 STRIP Insulin Human Regular Q6HR SC 11/27/24 18:00 11/27/24 18:16 3 UNITS Dextrose 50 ml UD PRN IV 11/27/24 17:00 Acetaminophen/ Hydrocodone Bitart 1 tab Q4HP PRN PO 11/27/24 17:00 11/29/24 03:38 1 TAB Ondansetron HCl 4 mg Q4HP PRN IV 11/27/24 17:00 Acetaminophen 650 mg Q6HP PRN PO 11/27/24 17:00 Morphine Sulfate 2 mg Q4HPRN PRN IV 11/27/24 17:00 11/29/24 09:11 2 MG Nitroglycerin 0.4 mg Q5MINP PRN SL 11/28/24 02:30 Morphine Sulfate 2 mg Q30M PRN IV 11/28/24 02:30 11/28/24 02:39 2 MG Vancomycin HCl 250 ml @ 250 mls/hr Q12H IV 11/28/24 14:00 11/29/24 01:47 250 MLS/HR Laboratory Results Laboratory Tests 11/28/24 03:20 11/29/24 04:42 Urinalysis Test 11/27/24 13:52 Urine Color Pending Urine Clarity Pending Urine pH Pending Urine Specific [place] Pending Urine Protein Pending Urine Ketones Pending Urine Blood Pending Urine Nitrite Pending Urine Bilirubin Pending Urine Urobilinogen Pending Urine Leukocyte Esterase Pending Urine RBC Pending Urine Microscopic WBC Pending Urine Squamous Epithelial Cells Pending Urine Bacteria Pending Urine Glucose Pending Labs and/or images reviewed: Labs reviewed by me, Image(s) reviewed by me Assessment/Plan Assessment/Plan Sepsis secondary to acute cholecystitis: Blood cultures, HIDA scan confirms cholecystitis, surgical consult by Dr. Kaiser appreciated awaiting cardiac clearance for cholecystectomy Intractable abdominal pain Ascites Hyponatremia Chest pain Diabetes Hypertension History of CVA with right hemiplegia History of Large pericardial effusion status post drainage one month ago at [facility] Gout Rheumatoid arthritis History of intubation for acute respiratory failure Patient was transferred to [facility] during the last visit for drainage of the pericardial fluid, stayed for one week in the hospital and discharged home. Daughter Jessica [phone] at bedside Condition serious Time spent 70 minutes Advanced care planning time 20 minutes Patient is full code Plan discussed with: Patient Date of Service: Nov 29, 2024 Billing Provider: LORIE HERNANDEZ MD Common Visit Codes: [id number] INP/OBS CARE(HIGH) LORIE HERNANDEZ MD Nov 29, 2024 12:13
--- NOTE | 2024-11-29 13:35 | DVHINCON2 ---
Date of service: Nov 29, 2024 Referring Physician FATUMA Zapata Reason for Consultation Pericardial Effusion / Cardiac Risk Stratification History of Present Illness This is a 59-year old male known outside to our practice who initially presented with RLQ abdominal pain found to have acute cholecystitis subsequently admitted to the telemetry unit currently undergoing surgical evaluation in addition to concurrent IV antibiotic therapy. It is of note patient recently underwent evaluation at this facility where he was found to have a large circumferential pericardial effusion which he underwent pericardiocentesis for (10/14/2024) however despite the aforementioned, patient still had a residual large effusion that could not be drained secondary to presence of septations and loculations subsequently transferred to [facility] at [facility] where he underwent pericardial window placement by Dr. Sharif. At present, repeat Echocardiogram (11/27/2024) was performed revealing presence of a gzjrdnnr-ss-istcz pericardial effusion surrounding the left ventricular posterior and lateral pimentel with no evidence of tamponade physiology based on mitral and tricuspid Doppler inflows. Upon arrival, initial 12-lead electrocardiogram was performed revealing sinus tachycardia at 119 bpm with no acute ischemic changes. Initial HS troponin level was found unremarkable at 7, with subsequent trend of 8, 23, and 54. Chest imaging revealed no evidence for acute cardiopulmonary abnormalities. Initial creatinine level of 1.44 with subsequent trend to 1.23. Current A1C level of 7.0. Patient did undergo ischemic workup by Latesha scan (11/14/2023) revealing normal LV perfusion. At present time of consultation, telemetry reveals sinus rhythm. Remains hemodynamically stable with no evidence for hypotension nor tachypnea. Denies chest pains, shortness of breath, palpitations, dizziness, syncope, or any further cardiac related symptoms. As the patient presented with acute cholecystitis in presence of a pericardial effusion, Cardiology services have now been involved by primary team request for cardiac aspects of care Past Medical History Past medical history includes previous pericardial effusion status post pericardiocentesis (10/14/2024) with subsequent pericardial window performed at [facility] (10/14/2024), cerebral vascular accident with residual right hemiparesis (2020), diabetes mellitus II, peripheral neuropathy, hyperlipidemia, hypertension, benign prostatic hypertrophy, gouty arthritis, and rheumatoid arthritis Echocardiogram: (10/14/2024) revealed there is a large circumferential pericardial effusion. Mildly reduced left ventricular systolic function estimated ejection fraction of 50%. There is global wall hypokinesia. Vrcy-ee-khtfivog concentric left ventricular hypertrophy. Normal right ventricular size and dimension. There is a mild diastolic collapse seen of the right ventricular free wall. suggestive of increased intrapericardial pressure. Clinical correlation is required to rule out cardiac tamponade. Mitral and tricuspid Doppler spectral flow not changed dramatically with respirations, indicating likely no evidence of pericardial tamponade. Normal biatrial size and dimension. Normal aortic valve structure and function. Normal mitral valve structure and function. Normal tricuspid valve structure and function. The pulmonary valve is grossly normal. No pericardial effusion. Echocardiogram: (11/27/2024) revealed Icssmvdy-br-qixaq pericardial effusion surrounding the left ventricular posterior and lateral pimentel.No evidence of tamponade physiology based on mitral and tricuspid Doppler inflows. Patient is tachycardic the time of the study with heart rate 120 beats per minute. Prior echo from September of 2024 showed very large circumferential pericardial effusion Nuclear Stress Test: (11/14/2023) revealed Myocardial Perfusion: LV perfusion is normal. Ejection Fraction 75%. Overall Study Quality: Fair. TID Index: 0.91 Past Surgical History Reviewed Family History: Family history: Hypertension G8 MOTHER, , Cause: HTN (hypertension) Stroke No Family History of: Cancer Cancer of colon Chronic obstructive lung disease (situation) Family history: Alzheimer's disease Family history: Arthritis Family history: Asthma Family history: Autoimmune disease (situation) Family history: Blood disorder Family history: Cardiovascular disease Family history: Congenital anomaly Family history: Coronary thrombosis Family history: Depression (situation) Family history: Diabetes in Family history: Diabetes mellitus Family history: Glaucoma Family history: Hypercholesterolemia (situation) Family history: Osteoporosis Family history: Suicide (situation) Family history: Thyroid disorder Ischemic heart disease Malignant melanoma Malignant neoplasm of breast Malignant neoplasm of lung Malignant neoplasm of ovary Prostate cancer Renal stone Seizure disorder (situation) Allergies: Coded Allergies: NO KNOWN ALLERGIES (Unverified , 04/25/21) Home Meds Active Scripts Cyclobenzaprine HCl (Cyclobenzaprine Hydrochlo) 5 Mg Tab, 5 MG PO Q8HPRN PRN, #14 TAB Prov:ANTELMO LO MD 05/26/23 Prednisone (Prednisone) 20 Mg Tab, 60 MG PO DAILY, #15 MG Prov:ANTELMO LO MD 05/26/23 Clopidogrel Bisulfate (Plavix) 75 Mg Tab, 75 MG PO DAILY for 30 Days, #30 TAB Prov:CARL PARKER MD 04/28/21 Aspirin (Aspir-Low Ec) 81 Mg Tb, 81 MG PO DAILY, #30 TAB Prov:DAVID HIGUERA M.D. 08/06/14 Glimepiride (Glimepiride) 1 Mg Tab, 1 MG PO DAILY, #30 TAB Prov:DAVID HIGUERA M.D. 08/06/14 [Atorvastatin Calcium] 20 MG TB No Conflict Check, 20 MG PO HS, #30 TAB Prov:DAVID HIGUERA M.D. 08/06/14 Reported Medications Losartan Potassium (Losartan Potassium) 100 Mg Tab, 1 TAB PO DAILY, #30 TAB 5 Refills 04/26/21 Insulin NPH (Human) (Isophane) (Novolin N Flexpen) 100 Unit/Ml Inj, 100 UNIT SC, INJ 04/26/21 Atorvastatin Calcium (ATORVASTATIN CALCIUM) 40 Mg Tab, 1 TAB PO DAILY, #30 TAB 5 Refills 04/26/21 Omeprazole Magnesium (Omeprazole) 20 Mg Tab, 20 MG PO DAILYPRN, TAB 04/26/21 Metformin Hydrochloride (Metformin Hcl) 1,000 Mg Tab, 1 TAB PO BID, #60 TAB 5 Refills 04/26/21 Chlorthalidone (Chlorthalidone) 25 Mg Tab, 25 MG PO DAILY, TAB 04/26/21 Finasteride (Finasteride) 5 Mg Tab, 1 TAB PO DAILY, #30 TAB 11 Refills 04/26/21 Tamsulosin HCl (Tamsulosin Hydrochloride) 0.4 Mg Cap, 0.4 MG PO DAILY, CAP 04/26/21 Amlodipine Besylate-Benazepril (AMLODIPINE BESYLATE/BENAZ) 1 Cap Cap, 1 CAP PO D AILY, #30 CAP 5 Refills 08/04/14 Sitagliptin Phosphate (Januvia) 100 Mg Tab, 1 TAB PO DAILY, #30 TAB 5 Refills 08/04/14 Current Medications Current Medications Medications (Trade) Dose Ordered Sig/Naveen Route PRN Reason Start Time Stop Time Status Last Admin Vancomycin HCl 250 ml @ 250 mls/hr Q12H IV 11/28/24 14:00 11/29/24 01:47 Review of Systems A 14-point review of systems is negative unless otherwise noted above Vital Signs Vital Signs Date Time Temp Pulse Resp B/P (MAP) Pulse Ox O2 Delivery O2 Flow Rate FiO2 11/29/24 13:00 97.4 93 19 122/71 (88) 96 97.4 11/29/24 08:10 Room Air* 0 21 Physical Exam Heart: S1 and S2 regular. The patient is in sinus rhythm. Lungs: Clear to auscultation Extremities: Distal pulses palpable, 2+. No evidence for peripheral edema Labs/Diagnostic Data Labs Test 11/29/24 12:10 11/29/24 04:42 11/28/24 11:35 11/28/24 03:20 Range/Units POC Glucose 107 H 70-106 mg/dl Creatinine 1.23 0.700-1.30 mg/dL Glomerular Filtration Rate Calc 68 >90 mL/min Random Vancomycin Level 13.7 H 5-10 ug/mL White Blood Count 12.9 #H 4.4-10.8 10^3/uL Red Blood Count 4.27 L 4.5-5.90 10^6/uL Hemoglobin 10.8 L 13.5-17.5 g/dL Hematocrit 34.0 L 41.0-53.0 % Mean Corpuscular Volume 79.6 L 80.0-100.0 fL Mean Corpuscular Hemoglobin 25.4 L 28.0-32.0 pg Mean Corpuscular Hemoglobin Concent 31.9 L 32.0-36.0 g/dL Red Cell Distribution Width 20.6 H 11.8-14.3 % Platelet Count 194 140-450 10^3/uL Mean Platelet Volume 8.5 6.9-10.8 fL Neutrophils (%) (Auto) 85.9 H 37.0-80.0 % Lymphocytes (%) (Auto) 7.3 L 10.0-50.0 % Monocytes (%) (Auto) 5.6 0.0-12.0 % Eosinophils (%) (Auto) 1.0 0.0-7.0 % Basophils (%) (Auto) 0.2 0.0-2.0 % Neutrophils # (Auto) 11.1 H 1.6-8.6 10 ^3/uL Lymphocytes # (Auto) 0.9 0.4-5.4 10 ^3/uL Monocytes # (Auto) 0.7 0-1.3 10 ^3/uL Eosinophils # (Auto) 0.1 0-0.8 10 ^3/uL Basophils # (Auto) 0 0-0.2 10 ^3/uL Nucleated Red Blood Cells 0.1 % Sodium Level 133 L 136-145 mmol/L Potassium Level 4.5 3.5-5.1 mmol/L Chloride Level 101 98-107 mmol/L Carbon Dioxide Level 19 L 20-31 mmol/L Anion Gap 13 5-15 Blood Urea Nitrogen 21 9-23 mg/dL BUN/Creatinine Ratio 15.0 10.0-20.0 Serum Glucose 139 H 74-106 mg/dL Calcium Level 9.1 8.7-10.4 mg/dL Total Bilirubin 0.8 0.2-1.0 mg/dL Aspartate Amino Transferase (AST) 17 13-40 U/L Alanine Aminotransferase (ALT) 12 7-40 U/L Alkaline Phosphatase 216 H 46-116 U/L Troponin I High Sensitivity 54 </=54 ng/L Total Protein 6.4 5.7-8.2 g/dL Albumin 3.9 3.2-4.8 g/dL Test 11/27/24 13:52 11/27/24 10:34 Range/Units Prothrombin Time 11.7 9.3-11.8 sec Prothrombin Time INR 1.12 0.9-1.15 Activated Partial Thromboplast Time 38.8 H 24.5-34.5 SEC D-Dimer, Quantitative 4.02 H 0.0-0.49 mg/L FEU Hemoglobin A1c 7.0 H <5.7 % A1C Plan/Recommendation ASSESSMENT: This is a 59-year old male known outside to our practice who initially presented with RLQ abdominal pain found to have acute cholecystitis subsequently admitted to the telemetry unit currently undergoing surgical evaluation in addition to concurrent IV antibiotic therapy. It is of note patient recently underwent evaluation at this facility where he was found to have a large circumferential pericardial effusion which he underwent pericardiocentesis for (10/14/2024) john mann despite the aforementioned, patient still had a residual large effusion that could not be drained secondary to presence of septations and loculations subsequently transferred to [facility] at [facility] where he underwent pericardial window placement by Dr. Sharif. At present, repeat Echocardiogram (11/27/2024) was performed revealing presence of a tidsponn-ez-nddiw pericardial effusion surrounding the left ventricular posterior and lateral pimentel with no evidence of tamponade physiology based on mitral and tricuspid Doppler inflows. Upon arrival, initial 12-lead electrocardiogram was performed revealing sinus tachycardia at 119 bpm with no acute ischemic changes. Initial HS troponin level was found unremarkable at 7, with subsequent trend of 8, 23, and 54. Chest imaging revealed no evidence for acute cardiopulmonary abnormalities. Initial creatinine level of 1.44 with subsequent trend to 1.23. Current A1C level of 7.0. Patient did undergo ischemic workup by Latesha scan (11/14/2023) revealing normal LV perfusion. At present time of consultation, telemetry reveals sinus rhythm. Remains hemodynamically stable with no evidence for hypotension nor tachypnea. Denies chest pains, shortness of breath, palpitations, dizziness, syncope, or any further cardiac related symptoms. As the patient presented with acute cholecystitis in presence of a pericardial effusion, Cardiology services have now been involved by primary team request for cardiac aspects of care Past medical history includes previous pericardial effusion status post pericardiocentesis (10/14/2024) with subsequent pericardial window performed at [facility] (10/14/2024), cerebral vascular accident with residual right hemiparesis (2020), diabetes mellitus II, peripheral neuropathy, hyperlipidemia, hypertension, benign prostatic hypertrophy, gouty arthritis, and rheumatoid arthritis Echocardiogram: (10/14/2024) revealed there is a large circumferential pericardial effusion. Mildly reduced left ventricular systolic function estimated ejection fraction of 50%. There is global wall hypokinesia. Iccl-yo-svzqonuq concentric left ventricular hypertrophy. Normal right ventr icular size and dimension. There is a mild diastolic collapse seen of the right ventricular free wall. suggestive of increased intrapericardial pressure. Clinical correlation is required to rule out cardiac tamponade. Mitral and tricuspid Doppler spectral flow not changed dramatically with respirations, indicating likely no evidence of pericardial tamponade. Normal biatrial size and dimension. Normal aortic valve structure and function. Normal mitral valve structure and function. Normal tricuspid valve structure and function. The pulmonary valve is grossly normal. No pericardial effusion. Echocardiogram: (11/27/2024) revealed Lsugubkv-xy-ldmxy pericardial effusion surrounding the left ventricular posterior and lateral pimentel.No evidence of tamponade physiology based on mitral and tricuspid Doppler inflows. Patient is tachycardic the time of the study with heart rate 120 beats per minute. Prior echo from September of 2024 showed very large circumferential pericardial effusion Nuclear Stress Test: (11/14/2023) revealed Myocardial Perfusion: LV perfusion is normal. Ejection Fraction 75%. Overall Study Quality: Fair. TID Index: 0.91 Acute cholecystitis Pericardial effusion, without tamponade physiology History of pericardiocentesis with subsequent pericardial window (10/14/2024) Cerebral vascular accident, history of, with right hemiparesis Diabetes mellitus II, A1C of 7.0 Acute kidney injury, improving Hypertension, controlled Rheumatoid arthritis Hyperlipidemia CARDIAC SUGGESTIONS FOR MANAGEMENT: As patient presented and was found to have presence of a pericardial effusion, interventional cardiology services were involved for potential pericardiocentesis however as per interventional cardiology (Dr. Silver), it appears there is not much fluid available. The apical/subcostal window reveals almost no space at all for appropriate access to fluid. Effusion is mostly basal and lateral collection without collapsing RA or RV. There is a loculated collection laterally, which it appears to be voluminous however the apical and subcostal windows do not reveal almost any fluid at all. As there is not enough fluid amendable for pericardiocentesis recommend conservative management at this time which we will start the patient on Colchicine therapy during the interim. Latesha scan (11/14/2023 outpatient) revealed a normal LV perfusion. In observation of the aforementioned above proceed with plan of care without further intervention. Cardiac-ortega the patient is considered elevated risk for plan of undergoing moderate risk cholecystectomy under appropriate intra-operative and post-operative cardiac hemodynamic monitoring. Management of co-morbidities as per primary team Follow up General Surgery recommendations On IV antibiotics as per primary team Proceed with close rate and rhythm surveillance Proceed with close hemodynamic surveillance Proceed with optimized blood pressure control Transfuse to sustain HGB level above 7.0 Sustain Magnesium level greater than 2.0 Sustain Potassium level greater than 4.0 Follow up renal function and electrolytes Management in telemetry Follow up General Surgery recommendations Will proceed to follow from a cardiac perspective Further recommendations per clinical progression All available diagnostic labs, EKG's, and images were personally reviewed Patient's status, findings, and plan of care was reviewed and discussed with supervising physician Dr. Dixon, who is in agreement with current plan of care. Plan of care discussed with and agreed upon by patient / family / primary RN Prognosis: Guarded / Poor Thank you for allowing me to participate in the care of this patient. Further recommendations based on patients clinical course and progression, primary attending, and other consultants. Will continue to follow with primary attending. If you have any questions or concerns, please do not hesitate to contact me. A total of 75 minutes was spent reviewing the patient record, examining the patient, making a diagnostic and therapeutic plan, discussing this plan with medical personnel, following up on diagnostic studies and following the patient for clinical stability excluding any and all procedures. At least 50% of this time was spent in direct, [id number] contact. Plan discussed with: Patient (Patient, Primary RN, and Family ) ANTIONE DAWSON Nov 29, 2024 13:35
--- NOTE | 2024-11-29 16:50 | DVHINCON2 ---
Date Seen: Nov 29, [address] Palma Reason for Consultation Preoperative clearance History of Present Illness 59-year-old gentleman comes for an evaluation given a history of abdominal and chest pain. He was previously hospitalized for pericardial effusion and subsequently transferred to [facility] for what appeared to be a pericardial window. It is unknown whether he actually received it. He does have history of hypertension hyperlipidemia diabetes previous history of cerebrovascular disorder with right-sided deficits. He has history of an abdominal surgery a month ago at [facility]. He has right lower quadrant abdominal pain and midepigastric pain as well. He has been deemed to have acute cholecystitis and cardiac clearance was requested. At this time the patient is having no chest pain but states the majority of his pain is right lower quadrant and epigastric. He does have a history as previously mentioned of hypertension hyperlipidemia previously cerebrovascular disorder. Stroke. Past Medical History Well documented with a history of CVA diabetes hypertension hyperlipidemia. Recent pericardial effusion. Family History: Family history: Hypertension G8 MOTHER, , Cause: HTN (hypertension) Stroke No Family History of: Cancer Cancer of colon Chronic obstructive lung disease (situation) Family history: Alzheimer's disease Family history: Arthritis Family history: Asthma Family history: Autoimmune disease (situation) Family history: Blood disorder Family history: Cardiovascular disease Family history: Congenital anomaly Family history: Coronary thrombosis Family history: Depression (situation) Family history: Diabetes in Family history: Diabetes mellitus Family history: Glaucoma Family history: Hypercholesterolemia (situation) Family history: Osteoporosis Family history: Suicide (situation) Family history: Thyroid disorder Ischemic heart disease Malignant melanoma Malignant neoplasm of breast Malignant neoplasm of lung Malignant neoplasm of ovary Prostate cancer Renal stone Seizure disorder (situation) Allergies: Coded Allergies: NO KNOWN ALLERGIES (Unverified , 04/25/21) Home Meds Active Scripts Cyclobenzaprine HCl (Cyclobenzaprine Hydrochlo) 5 Mg Tab, 5 MG PO Q8HPRN PRN, #14 TAB Prov:ANTELMO LO MD 05/26/23 Prednisone (Prednisone) 20 Mg Tab, 60 MG PO DAILY, #15 MG Prov:ANTELMO LO MD 05/26/23 Clopidogrel Bisulfate (Plavix) 75 Mg Tab, 75 MG PO DAILY for 30 Days, #30 TAB Prov:CARL PARKER MD 04/28/21 Aspirin (Aspir-Low Ec) 81 Mg Tb, 81 MG PO DAILY, #30 TAB Prov:DAVID HIGUERA M.D. 08/06/14 Glimepiride (Glimepiride) 1 Mg Tab, 1 MG PO DAILY, #30 TAB Prov:DAVID HIGUERA M.D. 08/06/14 [Atorvastatin Calcium] 20 MG TB No Conflict Check, 20 MG PO HS, #30 TAB Prov:DAVID HIGUERA M.D. 08/06/14 Reported Medications Losartan Potassium (Losartan Potassium) 100 Mg Tab, 1 TAB PO DAILY, #30 TAB 5 Refills 04/26/21 Insulin NPH (Human) (Isophane) (Novolin N Flexpen) 100 Unit/Ml Inj, 100 UNIT SC, INJ 04/26/21 Atorvastatin Calcium (ATORVASTATIN CALCIUM) 40 Mg Tab, 1 TAB PO DAILY, #30 TAB 5 Refills 04/26/21 Omeprazole Magnesium (Omeprazole) 20 Mg Tab, 20 MG PO DAILYPRN, TAB 04/26/21 Metformin Hydrochloride (Metformin Hcl) 1,000 Mg Tab, 1 TAB PO BID, #60 TAB 5 Refills 04/26/21 Chlorthalidone (Chlorthalidone) 25 Mg Tab, 25 MG PO DAILY, TAB 04/26/21 Finasteride (Finasteride) 5 Mg Tab, 1 TAB PO DAILY, #30 TAB 11 Refills 04/26/21 Tamsulosin HCl (Tamsulosin Hydrochloride) 0.4 Mg Cap, 0.4 MG PO DAILY, CAP 04/26/21 Amlodipine Besylate-Benazepril (AMLODIPINE BESYLATE/BENAZ) 1 Cap Cap, 1 CAP PO DAILY, #30 CAP 5 Refills 08/04/14 Sitagliptin Phosphate (Januvia) 100 Mg Tab, 1 TAB PO DAILY, #30 TAB 5 Refills 08/04/14 Current Medications Current Medications Medications (Trade) Dose Ordered Sig/Naveen Route PRN Reason Start Time Stop Time Status Last Admin Colchicine (Colcrys) 0.6 mg Q12HR PO 11/29/24 22:00 Review of Systems Poor historian. Difficult to assess. No fevers chills or weight loss up until recently. Cardiac and respiratory as noted above. GI musculoskeletal endocrine hematologic as noted. Vital Signs Vital Signs Date Time Temp Pulse Resp B/P (MAP) Pulse Ox O2 Delivery O2 Flow Rate FiO2 11/29/24 13:00 97.4 93 19 122/71 (88) 96 97.4 11/29/24 08:10 Room Air* 0 21 Physical Exam Physical examination he is awake alert and oriented no acute distress. Vital signs are as noted. HEENT examination is otherwise unremarkable. No jugular distention no bruits. Lungs reveal good air entry. Heart exam reveals regular S1-S2 soft S4. Abdominal examination is otherwise unremarkable. Extremities reveal adequate perfusion without clubbing cyanosis no edema. Neurologically intact. Integumentary is otherwise within normal limits. Labs/Diagnostic Data Echocardiogram shows loculated pericardial effusion. From the apical and subcostal views there is no accessibility to the pericardial effusion for an adequate pericardiocentesis. No diastolic collapse. No evidence of tamponade. Labs Test 11/29/24 12:10 11/29/24 04:42 11/28/24 11:35 11/28/24 03:20 Range/Units POC Glucose 107 H 70-106 mg/dl Creatinine 1.23 0.700-1.30 mg/dL Glomerular Filtration Rate Calc 68 >90 mL/min Random Vancomycin Level 13.7 H 5-10 ug/mL White Blood Count 12.9 #H 4.4-10.8 10^3/uL Red Blood Count 4.27 L 4.5-5.90 10^6/uL Hemoglobin 10.8 L 13.5-17.5 g/dL Hematocrit 34.0 L 41.0-53.0 % Mean Corpuscular Volume 79.6 L 80.0-100.0 fL Mean Corpuscular Hemoglobin 25.4 L 28.0-32.0 pg Mean Corpuscular Hemoglobin Concent 31.9 L 32.0-36.0 g/dL Red Cell Distribution Width 20.6 H 11.8-14.3 % Platelet Count 194 140-450 10^3/uL Mean Platelet Volume 8.5 6.9-10.8 fL Neutrophils (%) (Auto) 85.9 H 37.0-80.0 % Lymphocytes (%) (Auto) 7.3 L 10.0-50.0 % Monocytes (%) (Auto) 5.6 0.0-12.0 % Eosinophils (%) (Auto) 1.0 0.0-7.0 % Basophils (%) (Auto) 0.2 0.0-2.0 % Neutrophils # (Auto) 11.1 H 1.6-8.6 10 ^3/uL Lymphocytes # (Auto) 0.9 0.4-5.4 10 ^3/uL Monocytes # (Auto) 0.7 0-1.3 10 ^3/uL Eosinophils # (Auto) 0.1 0-0.8 10 ^3/uL Basophils # (Auto) 0 0-0.2 10 ^3/uL Nucleated Red Blood Cells 0.1 % Sodium Level 133 L 136-145 mmol/L Potassium Level 4.5 3.5-5.1 mmol/L Chloride Level 101 98-107 mmol/L Carbon Dioxide Level 19 L 20-31 mmol/L Anion Gap 13 5-15 Blood Urea Nitrogen 21 9-23 mg/dL BUN/Creatinine Ratio 15.0 10.0-20.0 Serum Glucose 139 H 74-106 mg/dL Calcium Level 9.1 8.7-10.4 mg/dL Total Bilirubin 0.8 0.2-1.0 mg/dL Aspartate Amino Transferase (AST) 17 13-40 U/L Alanine Aminotransferase (ALT) 12 7-40 U/L Alkaline Phosphatase 216 H 46-116 U/L Troponin I High Sensitivity 54 </=54 ng/L Total Protein 6.4 5.7-8.2 g/dL Albumin 3.9 3.2-4.8 g/dL Test 11/27/24 13:52 11/27/24 10:34 Range/Units Prothrombin Time 11.7 9.3-11.8 sec Prothrombin Time INR 1.12 0.9-1.15 Activated Partial Thromboplast Time 38.8 H 24.5-34.5 SEC D-Dimer, Quantitative 4.02 H 0.0-0.49 mg/L FEU Hemoglobin A1c 7.0 H <5.7 % A1C Assessment Pericardial effusion not causing hemodynamic instability. Possible acute cholecystitis. Requested cardiac clearance. History of arterial calcifications possibly related to coronary artery disease however patient has no ongoing chest pain and EKG is have been stable without troponin elevation. Noted history of hypertension.Diabetes mellitus. Previous stroke. Coronary calcifications. Recurrent pericardial effusion could possibly be a malignancy however cytology reports are not yet available. Unknown whether he had biopsy at [facility]. Plan/Recommendation Patient is at least moderate risk for surgery. Suggest proceed with cholecystectomy if deemed necessary. We will monitor cardiac Status. Plan discussed with: Patient NYHA Physical activity limitations: Class2(Slight)fatigue,sob Date of Service: Nov 29, 2024 Billing Provider: DONNIE CHAVEZ Sr., MD Cardiology Common Codes: [id number] INP/OBS CARE (High) DONNIE CHAVEZ Sr., MD Nov 29, 2024 16:50
[2024-11-29] MEDS: COLCHICINE 0.6 MG CAP PO SCH (22:31)
[2024-11-30] VITALS (9 sets, daily range): BP systolic 92–123; BP diastolic 55–75; PULSE 76–101; RESP 13–20; TEMP 97.8–99.5; O2SAT 93–99
--- NOTE | 2024-11-30 11:16 | DVHPN2 ---
Reviewed: Care Plan, H&P, Labs, Medications, Previous Orders, Radiology Changes from previous H/P or p: No Changes Eyes: No Pain, No Vision change, No Conjunctivae inflammation, No Eyelid inflammation, No Other, No Redness ENT: No Ear pain, No Ear discharge, No Nose pain, No Nose discharge, No Nose congestion, No Mouth pain, No Mouth swelling, No Throat pain, No Throat swelling, No Other Cardiovascular: Chest Pain; No Palpitations, No Orthopnea, No Paroxysmal Noc. Dyspnea, No Edema, No Lt Headedness, No Other Respiratory: No Cough, No Dry, No Shortness of breath, No SOB with excertion, No Wheezing, No Hemoptysis, No Pleuritic Pain, No Sputum, No Other Gastrointestinal: No Nausea, No Vomiting; Abdominal Pain; No Diarrhea, No Constipation, No Melena, No Hematochezia, No Other Musculoskeletal: No other, No neck pain, No shoulder pain; arm pain; No back pain, No hand pain, No leg pain, No foot pain Skin: No Rash, No Lesions, No Jaundice, No Bruising, No Other Objective Vitals Vital Signs Date Time Temp Pulse Resp B/P (MAP) Pulse Ox O2 Delivery O2 Flow Rate FiO2 11/30/24 10:06 123/75 11/30/24 09:00 97.8 95 17 96 97.8 11/30/24 08:15 Room Air* 0 21 Intake/Output Intake and Output 11/30/24 07:00 Intake Total 850 ml Output Total 0 ml Balance 850 ml Intake Oral 0 ml IV Total 850 ml Stool Total 0 ml # Voids 2 Medications Current Medications Medications Dose Ordered Sig/Naveen Route Start Time Stop Time Status Last Admin Dose Admin Finasteride 5 mg DAILY PO 11/28/24 10:00 11/30/24 10:02 5 MG Tamsulosin HCl 0.4 mg DAILY PO 11/28/24 10:00 11/30/24 10:02 0.4 MG Patient Own Medication 1 cap DAILY PO 11/28/24 10:00 Hold Losartan Potassium 100 mg DAILY PO 11/28/24 10:00 11/30/24 10:06 100 MG Pantoprazole Sodium 40 mg DAILY PO 11/28/24 10:00 11/30/24 10:02 40 MG Vancomycin HCl 0 ml @ 0 mls/hr UD IV 11/27/24 17:00 Piperacillin Sod/ Tazobactam Sod 100 ml @ 25 mls/hr Q8H IV 11/27/24 17:30 11/30/24 10:03 25 MLS/HR Sodium Chloride 1,000 ml @ 75 mls/hr [id number] IV 11/27/24 17:00 11/27/24 18:07 75 MLS/HR Diagnostic Test (Pha) 1 strip Q6HR 11/27/24 18:00 11/29/24 18:21 1 STRIP Insulin Human Regular Q6HR SC 11/27/24 18:00 11/27/24 18:16 3 UNITS Dextrose 50 ml UD PRN IV 11/27/24 17:00 Acetaminophen/ Hydrocodone Bitart 1 tab Q4HP PRN PO 11/27/24 17:00 11/29/24 14:06 1 TAB Ondansetron HCl 4 mg Q4HP PRN IV 11/27/24 17:00 Acetaminophen 650 mg Q6HP PRN PO 11/27/24 17:00 Morphine Sulfate 2 mg Q4HPRN PRN IV 11/27/24 17:00 11/29/24 20:35 2 MG Nitroglycerin 0.4 mg Q5MINP PRN SL 11/28/24 02:30 Morphine Sulfate 2 mg Q30M PRN IV 11/28/24 02:30 11/28/24 02:39 2 MG Colchicine 0.6 mg Q12HR PO 11/29/24 22:00 11/30/24 10:02 0.6 MG Laboratory Results Laboratory Tests 11/28/24 03:20 11/30/24 01:08 Labs and/or images reviewed: Labs reviewed by me, Image(s) reviewed by me Assessment/Plan Assessment/Plan Sepsis secondary to acute cholecystitis: Blood cultures, HIDA scan confirms cholecystitis, surgical consult by Dr. Kaiser appreciated Mirror Specialist Dr. Silver cleared for surgery moderate risk for surgery Intractable abdominal pain Ascites Hyponatremia Chest pain Diabetes Hypertension History of CVA with right hemiplegia History of Large pericardial effusion status post drainage one month ago at [facility] Gout Rheumatoid arthritis History of intubation for acute respiratory failure Patient was transferred to [facility] during the last visit for drainage of the pericardial fluid, stayed for one week in the hospital and discharged home. Shaan Lopez [phone] at bedside Condition serious Time spent 50 minutes at the bed side Patient is full code Plan discussed with: Patient My Orders Orders - LORIE HERNANDEZ MD Procedure Category Date Status Time *Consult Dr. Dixon CONS 11/29/24 Transmitted 12:15 Date of Service: Nov 30, 2024 Billing Provider: LORIE HERNANDEZ MD Common Visit Codes: [id number] INP/OBS CARE(HIGH) LORIE HERNANDEZ MD Nov 30, 2024 11:16
--- NOTE | 2024-11-30 12:00 | DVHPN2 ---
Progress Note Date Seen: Nov 30, 2024 Has the PT tested + for MRSA If YES, has PT been informed?: No Medical Necessity Reason Pt with a Central, PICC or Fol: No Objective vital signs Vital Sign Date Time Temp Pulse Resp B/P (MAP) Pulse Ox O2 Delivery O2 Flow Rate FiO2 11/30/24 10:06 123/75 11/30/24 09:00 97.8 95 17 96 97.8 11/30/24 08:15 Room Air* 0 21 Total Intake and Output 11/29/24 11/29/24 11/30/24 15:00 23:00 07:00 Intake Total 100 ml 500 ml 250 ml Output Total 0 ml Balance 100 ml 500 ml 250 ml medications Current Medications Medications Dose Ordered Sig/Naveen Route Start Time Stop Time Status Last Admin Dose Admin Finasteride 5 mg DAILY PO 11/28/24 10:00 11/30/24 10:02 5 MG Tamsulosin HCl 0.4 mg DAILY PO 11/28/24 10:00 11/30/24 10:02 0.4 MG Patient Own Medication 1 cap DAILY PO 11/28/24 10:00 Hold Losartan Potassium 100 mg DAILY PO 11/28/24 10:00 11/30/24 10:06 100 MG Pantoprazole Sodium 40 mg DAILY PO 11/28/24 10:00 11/30/24 10:02 40 MG Vancomycin HCl 0 ml @ 0 mls/hr UD IV 11/27/24 17:00 Piperacillin Sod/ Tazobactam Sod 100 ml @ 25 mls/hr Q8H IV 11/27/24 17:30 11/30/24 10:03 25 MLS/HR Sodium Chloride 1,000 ml @ 75 mls/hr [id number] IV 11/27/24 17:00 11/27/24 18:07 75 MLS/HR Diagnostic Test (Pha) 1 strip Q6HR 11/27/24 18:00 11/30/24 11:43 1 STRIP Insulin Human Regular Q6HR SC 11/27/24 18:00 11/27/24 18:16 3 UNITS Dextrose 50 ml UD PRN IV 11/27/24 17:00 Acetaminophen/ Hydrocodone Bitart 1 tab Q4HP PRN PO 11/27/24 17:00 11/29/24 14:06 1 TAB Ondansetron HCl 4 mg Q4HP PRN IV 11/27/24 17:00 Acetaminophen 650 mg Q6HP PRN PO 11/27/24 17:00 Morphine Sulfate 2 mg Q4HPRN PRN IV 11/27/24 17:00 11/29/24 20:35 2 MG Nitroglycerin 0.4 mg Q5MINP PRN SL 11/28/24 02:30 Morphine Sulfate 2 mg Q30M PRN IV 11/28/24 02:30 11/28/24 02:39 2 MG Colchicine 0.6 mg Q12HR PO 11/29/24 22:00 11/30/24 10:02 0.6 MG laboratory and microbiology Laboratory Tests 11/30/24 01:08 11/28/24 03:20 Test 11/28/24 03:20 Range/Units Serum Glucose 139 H 74-106 mg/dL Problem List/Assessment/Plan Problem List/Assessment/Plan 11/28/24 ABDOMINAL PAIN,PATIENT HAD A CVA "FEW YEARS AGO" HAS RIGHT HEMIPLEGIA. ABDOMEN MINIMALLY TENDER IN MID EPIGASTRIUM, AWAITING HIDA SCAN 11/29/24 HIDA SCAN CONFIRMS THE DIAGNOSIS OF CHOLECYSTITIS. AWAITING CARDIAC CLEARANCE , PLEASE NOTIFY ME WHEN DONE SO WE CAN PROCEED WITH CHOLECYSTECTOMY 11/30/24 PAIN MUCH LESS, NO ABDOMINAL TENDERNESS, PATIENT IS HUNGRY, DUE TO SEQUELAE OF CVA,DANIEL-CARDAIL EFFUSION (WHICH COULD BE MALIGNANT) AND ASCITES HE IS AT MARKEDLY INCREASED RISK FOR SURGERY, HIS SYMPTOMS ARE IMPROVING I HAVE ADVISED HIM TO AVOID AN OPERATION IF POSSIBLE, WILL ADVANCE PO DIET, IF SYMPTOMS RECUR WILL PROCEED WITH AN OPERATION, AT BEDSIDE ,QUESTIONS ANSWERED Plan discussed with: Patient ZAYDA GRIGGS MD Nov 30, 2024 12:00
--- NOTE | 2024-11-30 18:40 | DVHPN2 ---
Progress Note Date Seen: Nov 30, 2024 Has the PT tested + for MRSA If YES, has PT been informed?: No Medical Necessity Reason Pt with a Central, PICC or Fol: No Subjective Review of Systems: HEENT:Normal, CVS:Normal, RESPIRATORY:Normal, GI:Normal, :Normal, MSK:Normal, NEURO:Normal Objective vital signs Vital Sign Date Time Temp Pulse Resp B/P (MAP) Pulse Ox O2 Delivery O2 Flow Rate FiO2 11/30/24 17:00 98.8 91 19 108/70 (83) 97 98.8 11/30/24 08:15 Room Air* 0 21 Total Intake and Output 11/29/24 11/29/24 11/30/24 14:59 22:59 06:59 Intake Total 100 ml 500 ml 250 ml Output Total 0 ml Balance 100 ml 500 ml 250 ml medications Current Medications Medications Dose Ordered Sig/Naveen Route Start Time Stop Time Status Last Admin Dose Admin Finasteride 5 mg DAILY PO 11/28/24 10:00 11/30/24 10:02 5 MG Tamsulosin HCl 0.4 mg DAILY PO 11/28/24 10:00 11/30/24 10:02 0.4 MG Patient Own Medication 1 cap DAILY PO 11/28/24 10:00 Hold Losartan Potassium 100 mg DAILY PO 11/28/24 10:00 11/30/24 10:06 100 MG Pantoprazole Sodium 40 mg DAILY PO 11/28/24 10:00 11/30/24 10:02 40 MG Vancomycin HCl 0 ml @ 0 mls/hr UD IV 11/27/24 17:00 Piperacillin Sod/ Tazobactam Sod 100 ml @ 25 mls/hr Q8H IV 11/27/24 17:30 11/30/24 18:10 25 MLS/HR Sodium Chloride 1,000 ml @ 75 mls/hr [id number] IV 11/27/24 17:00 11/27/24 18:07 75 MLS/HR Diagnostic Test (Pha) 1 strip Q6HR 11/27/24 18:00 11/30/24 18:11 1 STRIP Insulin Human Regular Q6HR SC 11/27/24 18:00 11/30/24 18:16 4 UNITS Dextrose 50 ml UD PRN IV 11/27/24 17:00 Acetaminophen/ Hydrocodone Bitart 1 tab Q4HP PRN PO 11/27/24 17:00 11/29/24 14:06 1 TAB Ondansetron HCl 4 mg Q4HP PRN IV 11/27/24 17:00 Acetaminophen 650 mg Q6HP PRN PO 11/27/24 17:00 Morphine Sulfate 2 mg Q4HPRN PRN IV 11/27/24 17:00 11/29/24 20:35 2 MG Nitroglycerin 0.4 mg Q5MINP PRN SL 11/28/24 02:30 Morphine Sulfate 2 mg Q30M PRN IV 11/28/24 02:30 11/28/24 02:39 2 MG Colchicine 0.6 mg Q12HR PO 11/29/24 22:00 11/30/24 10:02 0.6 MG laboratory and microbiology Laboratory Tests 11/30/24 01:08 11/28/24 03:20 Test 11/28/24 03:20 Range/Units Serum Glucose 139 H 74-106 mg/dL Problem List/Assessment/Plan Problem List/Assessment/Plan ASSESSMENT: This is a 59-year old male known outside to our practice who initially presented with RLQ abdominal pain found to have acute cholecystitis subsequently admitted to the telemetry unit currently undergoing surgical evaluation in addition to concurrent IV antibiotic therapy. It is of note patient recently underwent evaluation at this facility where he was found to have a large circumferential pericardial effusion which he underwent pericardiocentesis for (10/14/2024) however despite the aforementioned, patient still had a residual large effusion that could not be drained secondary to presence of septations and loculations subsequently transferred to [facility] at [facility] where he underwent pericardial window placement by Dr. Sharif. At present, repeat Echocardiogram (11/27/2024) was performed revealing presence of a [id number] pericardial effusion surrounding the left ventricular posterior and lateral pimentel with no evidence of tamponade physiology based on mitral and tricuspid Doppler inflows. Upon arrival, initial 12-lead electrocardiogram was performed revealing sinus tachycardia at 119 bpm with no acute ischemic changes. Initial HS troponin level was found unremarkable at 7, with subsequent trend of 8, 23, and 54. Chest imaging revealed no evidence for acute cardiopulmonary abnormalities. Initial creatinine level of 1.44 with subsequent trend to 1.23. Current A1C level of 7.0. Patient did undergo ischemic workup by Latesha scan (11/14/2023) revealing normal LV perfusion. At present time of consultation, telemetry reveals sinus rhythm. Remains hemodynamically stable with no evidence for hypotension nor tachypnea. Denies chest pains, shortness of breath, palpitations, dizziness, syncope, or any further cardiac related symptoms. As the patient presented with acute cholecystitis in presence of a pericardial effusion, Cardiology services have now been involved by primary team request for cardiac aspects of care Past medical history includes previous pericardial effusion status post pericardiocentesis (10/14/2024) with subsequent pericardial window performed at [facility] (10/14/2024), cerebral vascular accident with residual right hemiparesis (2020), diabetes mellitus II, peripheral neuropathy, hyperlipidemia, hypertension, benign prostatic hypertrophy, gouty arthritis, and rheumatoid arthritis Echocardiogram: (10/14/2024) revealed there is a large circumferential pericardial effusion. Mildly reduced left ventricular systolic function estimated ejection fraction of 50%. There is global wall hypokinesia. Leys-ks-woofhyis concentric left ventricular hypertrophy. Normal right ventricular size and dimension. There is a mild diastolic collapse seen of the right ventricular free wall. suggestive of increased intrapericardial pressure. Clinical correlation is required to rule out cardiac tamponade. Mitral and tricuspid Doppler spectral flow not changed dramatically with respirations, indicating likely no evidence of pericardial tamponade. Normal biatrial size and dimension. Normal aortic valve structure and function. Normal mitral valve structure and function. Normal tricuspid valve structure and function. The pulmonary valve is grossly normal. No pericardial effusion. Echocardiogram: (11/27/2024) revealed [id number] pericardial effusion surrounding the left ventricular posterior and lateral pimentel.No evidence of tamponade physiology based on mitral and tricuspid Doppler inflows. Patient is tachycardic the time of the study with heart rate 120 beats per minute. Prior echo from September of 2024 showed very large circumferential pericardial effusion Nuclear Stress Test: (11/14/2023) revealed Myocardial Perfusion: LV perfusion is normal. Ejection Fraction 75%. Overall Study Quality: Fair. TID Index: 0.91 Acute cholecystitis Pericardial effusion, without tamponade physiology History of pericardiocentesis with subsequent pericardial window (10/14/2024) Cerebral vascular accident, history of, with right hemiparesis Diabetes mellitus II, A1C of 7.0 Acute kidney injury, improving Hypertension, controlled Rheumatoid arthritis Hyperlipidemia CARDIAC SUGGESTIONS FOR MANAGEMENT: As patient presented and was found to have presence of a pericardial effusion, interventional cardiology services were involved for potential pericardiocentesis however as per interventional cardiology (Dr. Silver), it appears there is not much fluid available. The apical/subcostal window reveals almost no space at all for appropriate access to fluid. Effusion is mostly basal and lateral collection without collapsing RA or RV. There is a loculated collection laterally, which it appears to be voluminous however the apical and subcostal windows do not reveal almost any fluid at all. As there is not enough fluid amendable for pericardiocentesis recommend conservative management at this time which we will start the patient on Colchicine therapy during the interim. Latehsa scan (11/14/2023 outpatient) revealed a normal LV perfusion. In observation of the aforementioned above proceed with plan of care without further intervention. Cardiac-ortega the patient is considered elevated risk for plan of undergoing moderate risk cholecystectomy under appropriate intra-operative and post-operative cardiac hemodynamic monitoring. Management of co-morbidities as per primary team Follow up General Surgery recommendations On IV antibiotics as per primary team Proceed with close rate and rhythm surveillance Proceed with close hemodynamic surveillance Proceed with optimized blood pressure control Transfuse to sustain HGB level above 7.0 Sustain Magnesium level greater than 2.0 Sustain Potassium level greater than 4.0 Follow up renal function and electrolytes Management in telemetry Follow up General Surgery recommendations Will proceed to follow from a cardiac perspective Further recommendations per clinical progression All available diagnostic labs, EKG's, and images were personally reviewed Patient's status, findings, and plan of care was reviewed and discussed with supervising physician Dr. Dixon, who is in agreement with current plan of care. Plan of care discussed with and agreed upon by patient / family / primary RN Prognosis: Guarded / Poor Thank you for allowing me to participate in the care of this patient. Further recommendations based on patients clinical course and progression, primary attending, and other consultants. Will continue to follow with primary attending. If you have any questions or concerns, please do not hesitate to contact me. A total of 75 minutes was spent reviewing the patient record, examining the patient, making a diagnostic and therapeutic plan, discussing this plan with medical personnel, following up on diagnostic studies and following the patient for clinical stability excluding any and all procedures. At least 50% of this time was spent in direct, [id number] contact. Plan discussed with: Patient CECIL DIXON MD Nov 30, 2024 18:40
[2024-12-01] VITALS (8 sets, daily range): BP systolic 98–118; BP diastolic 58–74; PULSE 77–93; RESP 14–20; TEMP 98.1–99; O2SAT 93–96
--- NOTE | 2024-12-01 12:13 | DVHPN2 ---
Reviewed: Care Plan, H&P, Labs, Medications, Previous Orders, Radiology Changes from previous H/P or p: No Changes Eyes: No Pain, No Vision change, No Conjunctivae inflammation, No Eyelid inflammation, No Other, No Redness ENT: No Ear pain, No Ear discharge, No Nose pain, No Nose discharge, No Nose congestion, No Mouth pain, No Mouth swelling, No Throat pain, No Throat swelling, No Other Cardiovascular: Chest Pain; No Palpitations, No Orthopnea, No Paroxysmal Noc. Dyspnea, No Edema, No Lt Headedness, No Other Respiratory: No Cough, No Dry, No Shortness of breath, No SOB with excertion, No Wheezing, No Hemoptysis, No Pleuritic Pain, No Sputum, No Other Gastrointestinal: No Nausea, No Vomiting; Abdominal Pain; No Diarrhea, No Constipation, No Melena, No Hematochezia, No Other Musculoskeletal: No other, No neck pain, No shoulder pain; arm pain; No back pain, No hand pain, No leg pain, No foot pain Skin: No Rash, No Lesions, No Jaundice, No Bruising, No Other Objective Vitals Vital Signs Date Time Temp Pulse Resp B/P (MAP) Pulse Ox O2 Delivery O2 Flow Rate FiO2 12/01/24 09:53 111/65 12/01/24 09:00 98.4 80 20 93 98.4 12/01/24 08:05 Room Air* 0 21 Intake/Output Intake and Output 12/01/24 07:00 Intake Total 1180 ml Balance 1180 ml Intake Oral 1080 ml IV Total 100 ml # Voids 4 # Bowel Movements 1 Medications Current Medications Medications Dose Ordered Sig/Naveen Route Start Time Stop Time Status Last Admin Dose Admin Finasteride 5 mg DAILY PO 11/28/24 10:00 12/01/24 09:52 5 MG Tamsulosin HCl 0.4 mg DAILY PO 11/28/24 10:00 12/01/24 09:51 0.4 MG Patient Own Medication 1 cap DAILY PO 11/28/24 10:00 Hold Losartan Potassium 100 mg DAILY PO 11/28/24 10:00 12/01/24 09:53 100 MG Pantoprazole Sodium 40 mg DAILY PO 11/28/24 10:00 12/01/24 09:52 40 MG Vancomycin HCl 0 ml @ 0 mls/hr UD IV 11/27/24 17:00 Piperacillin Sod/ Tazobactam Sod 100 ml @ 25 mls/hr Q8H IV 11/27/24 17:30 12/01/24 09:51 25 MLS/HR Sodium Chloride 1,000 ml @ 75 mls/hr [id number] IV 11/27/24 17:00 11/27/24 18:07 75 MLS/HR Diagnostic Test (Pha) 1 strip Q6HR 11/27/24 18:00 12/01/24 11:27 1 STRIP Insulin Human Regular Q6HR SC 11/27/24 18:00 12/01/24 11:39 6 UNITS Dextrose 50 ml UD PRN IV 11/27/24 17:00 Acetaminophen/ Hydrocodone Bitart 1 tab Q4HP PRN PO 11/27/24 17:00 12/01/24 00:44 1 TAB Ondansetron HCl 4 mg Q4HP PRN IV 11/27/24 17:00 Acetaminophen 650 mg Q6HP PRN PO 11/27/24 17:00 Morphine Sulfate 2 mg Q4HPRN PRN IV 11/27/24 17:00 11/30/24 19:55 2 MG Nitroglycerin 0.4 mg Q5MINP PRN SL 11/28/24 02:30 Morphine Sulfate 2 mg Q30M PRN IV 11/28/24 02:30 11/28/24 02:39 2 MG Colchicine 0.6 mg Q12HR PO 11/29/24 22:00 12/01/24 09:51 0.6 MG Laboratory Results Laboratory Tests 11/28/24 03:20 12/01/24 05:25 Labs and/or images reviewed: Labs reviewed by me, Image(s) reviewed by me Assessment/Plan Assessment/Plan Sepsis secondary to acute cholecystitis: Blood cultures pending, HIDA scan confirms cholecystitis, surgical consult by Dr. Kaiser appreciated, as the patient is afebrile white count is coming down and pt feels better Dr. 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 during the last visit for drainage of the pericardial fluid, stayed for one week in the hospital and discharged home. Gout Rheumatoid arthritis History of intubation for acute respiratory failure PICC line ordered for IV antibiotics for three weeks City Daughter Jessica [phone] at bedside Condition serious Time spent 50 minutes at the bed side Patient is full code Plan discussed with: Patient My Orders Orders - LORIE HERNANDEZ MD Procedure Category Date Status Time Complete Blood Count LAB 12/02/24 Verified 04:00 Comprehensive LAB 12/02/24 Verified Metabolic Panel 04:00 Date of Service: Dec 01, 2024 Billing Provider: LORIE HERNANDEZ MD Common Visit Codes: [id number] INP/OBS CARE(HIGH) LORIE HERNANDEZ MD Dec 01, 2024 12:13
--- NOTE | 2024-12-01 13:17 | DVHPN2 ---
Progress Note Date Seen: Dec 01, 2024 Has the PT tested + for MRSA If YES, has PT been informed?: No Medical Necessity Reason Pt with a Central, PICC or Fol: No Objective vital signs Vital Sign Date Time Temp Pulse Resp B/P (MAP) Pulse Ox O2 Delivery O2 Flow Rate FiO2 12/01/24 09:53 111/65 12/01/24 09:00 98.4 80 20 93 98.4 12/01/24 08:05 Room Air* 0 21 Total Intake and Output 11/30/24 11/30/24 12/01/24 15:00 23:00 07:00 Intake Total 100 ml 480 ml 600 ml Balance 100 ml 480 ml 600 ml medications Current Medications Medications Dose Ordered Sig/Naveen Route Start Time Stop Time Status Last Admin Dose Admin Finasteride 5 mg DAILY PO 11/28/24 10:00 12/01/24 09:52 5 MG Tamsulosin HCl 0.4 mg DAILY PO 11/28/24 10:00 12/01/24 09:51 0.4 MG Patient Own Medication 1 cap DAILY PO 11/28/24 10:00 Hold Losartan Potassium 100 mg DAILY PO 11/28/24 10:00 12/01/24 09:53 100 MG Pantoprazole Sodium 40 mg DAILY PO 11/28/24 10:00 12/01/24 09:52 40 MG Vancomycin HCl 0 ml @ 0 mls/hr UD IV 11/27/24 17:00 Piperacillin Sod/ Tazobactam Sod 100 ml @ 25 mls/hr Q8H IV 11/27/24 17:30 12/01/24 09:51 25 MLS/HR Sodium Chloride 1,000 ml @ 75 mls/hr [id number] IV 11/27/24 17:00 11/27/24 18:07 75 MLS/HR Diagnostic Test (Pha) 1 strip Q6HR 11/27/24 18:00 12/01/24 11:27 1 STRIP Insulin Human Regular Q6HR SC 11/27/24 18:00 12/01/24 11:39 6 UNITS Dextrose 50 ml UD PRN IV 11/27/24 17:00 Acetaminophen/ Hydrocodone Bitart 1 tab Q4HP PRN PO 11/27/24 17:00 12/01/24 00:44 1 TAB Ondansetron HCl 4 mg Q4HP PRN IV 11/27/24 17:00 Acetaminophen 650 mg Q6HP PRN PO 11/27/24 17:00 Morphine Sulfate 2 mg Q4HPRN PRN IV 11/27/24 17:00 11/30/24 19:55 2 MG Nitroglycerin 0.4 mg Q5MINP PRN SL 11/28/24 02:30 Morphine Sulfate 2 mg Q30M PRN IV 11/28/24 02:30 11/28/24 02:39 2 MG Colchicine 0.6 mg Q12HR PO 11/29/24 22:00 12/01/24 09:51 0.6 MG laboratory and microbiology Laboratory Tests 12/01/24 05:25 11/28/24 03:20 Test 11/28/24 03:20 Range/Units Serum Glucose 139 H 74-106 mg/dL Problem List/Assessment/Plan Problem List/Assessment/Plan ASSESSMENT: This is a 59-year old male known outside to our practice who initially presented with RLQ abdominal pain found to have acute cholecystitis subsequently admitted to the telemetry unit currently undergoing surgical evaluation in addition to concurrent IV antibiotic therapy. It is of note patient recently underwent evaluation at this facility where he was found to have a large circumferential pericardial effusion which he underwent pericardiocentesis for (10/14/2024) however despite the aforementioned, patient still had a residual large effusion that could not be drained secondary to presence of septations and loculations subsequently transferred to [facility] at [facility] where he underwent pericardial window placement by Dr. Sharif. At present, repeat Echocardiogram (11/27/2024) was performed revealing presence of a umaprmek-to-ghlac pericardial effusion surrounding the left ventricular posterior and lateral pimentel with no evidence of tamponade physiology based on mitral and tricuspid Doppler inflows. Upon arrival, initial 12-lead electrocardiogram was performed revealing sinus tachycardia at 119 bpm with no acute ischemic changes. Initial HS troponin level was found unremarkable at 7, with subsequent trend of 8, 23, and 54. Chest imaging revealed no evidence for acute cardiopulmonary abnormalities. Initial creatinine level of 1.44 with subsequent trend to 1.23. Current A1C level of 7.0. Patient did undergo ischemic workup by Latesha scan (11/14/2023) revealing normal LV perfusion. At present time of consultation, telemetry reveals sinus rhythm. Remains hemodynamically stable with no evidence for hypotension nor tachypnea. Denies chest pains, shortness of breath, palpitations, dizziness, syncope, or any further cardiac related symptoms. As the patient presented with acute cholecystitis in presence of a pericardial effusion, Cardiology services have now been involved by primary team request for cardiac aspects of care Past medical history includes previous pericardial effusion status post pericardiocentesis (10/14/2024) with subsequent pericardial window performed at [facility] (10/14/2024), cerebral vascular accident with residual right hemiparesis (2020), diabetes mellitus II, peripheral neuropathy, hyperlipidemia, hypertension, benign prostatic hypertrophy, gouty arthritis, and rheumatoid arthritis Echocardiogram: (10/14/2024) revealed there is a large circumferential pericardial effusion. Mildly reduced left ventricular systolic function estimated ejection fraction of 50%. There is global wall hypokinesia. Xqwt-nn-nlelcyah concentric left ventricular hypertrophy. Normal right ventricular size and dimension. There is a mild diastolic collapse seen of the right ventricular free wall. suggestive of increased intrapericardial pressure. Clinical correlation is required to rule out cardiac tamponade. Mitral and tricuspid Doppler spectral flow not changed dramatically with respirations, indicating likely no evidence of pericardial tamponade. Normal biatrial size and dimension. Normal aortic valve structure and function. Normal mitral valve structure and function. Normal tricuspid valve structure and function. The pulmonary valve is grossly normal. No pericardial effusion. Echocardiogram: (11/27/2024) revealed Clenesdz-nl-uyxgl pericardial effusion surrounding the left ventricular posterior and lateral pimentel.No evidence of tamponade physiology based on mitral and tricuspid Doppler inflows. Patient is tachycardic the time of the study with heart rate 120 beats per minute. Prior echo from September of 2024 showed very large circumferential pericardial effusion Nuclear Stress Test: (11/14/2023) revealed Myocardial Perfusion: LV perfusion is normal. Ejection Fraction 75%. Overall Study Quality: Fair. TID Index: 0.91 Acute cholecystitis Pericardial effusion, without tamponade physiology History of pericardiocentesis with subsequent pericardial window (10/14/2024) Cerebral vascular accident, history of, with right hemiparesis Diabetes mellitus II, A1C of 7.0 Acute kidney injury, improving Hypertension, controlled Rheumatoid arthritis Hyperlipidemia CARDIAC SUGGESTIONS FOR MANAGEMENT: As patient presented and was found to have presence of a pericardial effusion, interventional cardiology services were involved for potential pericardiocentesis however as per interventional cardiology (Dr. Silver), it appears there is not much fluid available. The apical/subcostal window reveals almost no space at all for appropriate access to fluid. Effusion is mostly basal and lateral collection without collapsing RA or RV. There is a loculated collection laterally, which it appears to be voluminous however the apical and subcostal windows do not reveal almost any fluid at all. As there is not enough fluid amendable for pericardiocentesis recommend conservative management at this time which we will start the patient on Colchicine therapy during the interim. Latesha scan (11/14/2023 outpatient) revealed a normal LV perfusion. In observation of the aforementioned above proceed with plan of care without further intervention. Cardiac-ortega the patient is considered elevated risk for plan of undergoing moderate risk cholecystectomy under appropriate intra-operative and post-operative cardiac hemodynamic monitoring. Management of co-morbidities as per primary team Follow up General Surgery recommendations On IV antibiotics as per primary team Proceed with close rate and rhythm surveillance Proceed with close hemodynamic surveillance Proceed with optimized blood pressure control Transfuse to sustain HGB level above 7.0 Sustain Magnesium level greater than 2.0 Sustain Potassium level greater than 4.0 Follow up renal function and electrolytes Management in telemetry Follow up General Surgery recommendations Will proceed to follow from a cardiac perspective Further recommendations per clinical progression All available diagnostic labs, EKG's, and images were personally reviewed Patient's status, findings, and plan of care was reviewed and discussed with supervising physician Dr. Dixon, who is in agreement with current plan of care. Plan of care discussed with and agreed upon by patient / family / primary RN Prognosis: Guarded / Poor Thank you for allowing me to participate in the care of this patient. Further recommendations based on patients clinical course and progression, primary attending, and other consultants. Will continue to follow with primary attending. If you have any questions or concerns, please do not hesitate to contact me. A total of 75 minutes was spent reviewing the patient record, examining the patient, making a diagnostic and therapeutic plan, discussing this plan with medical personnel, following up on diagnostic studies and following the patient for clinical stability excluding any and all procedures. At least 50% of this time was spent in direct, [id number] contact. Plan discussed with: Patient CECIL DIXON MD Dec 01, 2024 13:17
[2024-12-01] MEDS: LIDOCAINE 1% (LOCAL ANESTH.) PF 5ml SDV ID ONE (14:00)
--- NOTE | 2024-12-01 16:13 | DVH ---
CHEST RADIOGRAPH Indication: PICC LINE INSERTION Technique: Single frontal view of the chest was obtained COMPARISON: XY CHEST PORTABLE on DOS: 11/27/24, XY CHEST PORTABLE on DOS: 10/14/24, XY CHEST XRAY 1 EW on DOS: 10/13/24, XY CHEST XRAY 1 VIEW on DOS: 05/26/23 FINDINGS: Lines and Tubes: Left PICC tip faintly visualized at the proximal superior vena cava. Lungs: Clear Pleura: No effusion. No pneumothorax. Cardiomediastinal contours: Unremarkable Bones: Unremarkable IMPRESSION: Left PICC tip faintly visualized at the proximal superior vena cava.
[2024-12-01] MEDS: SODIUM CHLOR 0.9% PF (SALINE LOCK) 10ML VIAL/SYR IV SCH (22:01)
[2024-12-01] MEDS: VANCOMYCIN 1GM/250ML KIT 250 ML IV SCH (22:40)
[2024-12-02] VITALS (7 sets, daily range): BP systolic 111–135; BP diastolic 71–92; PULSE 71–88; RESP 15–20; TEMP 97.4–98.3; O2SAT 96–99
[2024-12-02 06:20] LABS: Basophils # (auto) 0 10 ^3/uL (0-0.2); Eosinophils # (auto) 0.2 10 ^3/uL (0-0.8); Monocytes # (auto) 0.4 10 ^3/uL (0-1.3)
[2024-12-02 06:21] LABS: Basophils % (auto) 0.5 % (0.0-2.0); Eosinophils % (auto) 2.3 % (0.0-7.0); Hematocrit 36.1 % (41.0-53.0); Hemoglobin 11.5 g/dL (13.5-17.5); Mean Corpuscular Hemoglobin 25.7 pg (28.0-32.0); Mean Corpuscular Hgb Conc. 31.9 g/dL (32.0-36.0); Mean Corpuscular Volume 80.5 fL (80.0-100.0); Monocytes % (auto) 4.3 % (0.0-12.0); Neutrophils # (auto) 7.3 10 ^3/uL (1.6-8.6); Neutrophils % (auto) 72.9 % (37.0-80.0); Nucleated Red Blood Cells % 0.1 %; Platelet Count (auto) 352 10^3/uL (140-450); Red Blood Cells 4.48 10^6/uL (4.5-5.90)
[2024-12-02 06:22] LABS: Red Cell Distribution Width 20.5 % (11.8-14.3)
[2024-12-02 06:48] LABS: Alanine Aminotransferase 29 U/L (7-40); Albumin 4.1 g/dL (3.2-4.8); Alkaline Phosphatase 345 U/L (46-116); Anion Gap 10 (5-15); Aspartate Aminotransferase 21 U/L (13-40); BUN/Creatinine Ratio 16.9 (10.0-20.0); Blood Urea Nitrogen 23 mg/dL (9-23); Calcium 9.4 mg/dL (8.7-10.4); Carbon Dioxide 24 mmol/L (20-31); Chloride 101 mmol/L (98-107); Glucose 166 mg/dL (74-106); Potassium 3.6 mmol/L (3.5-5.1); Sodium 135 mmol/L (136-145)
[2024-12-02 06:49] LABS: Bilirubin, Total 0.6 mg/dL (0.2-1.0); Total Protein 7.5 g/dL (5.7-8.2)
--- NOTE | 2024-12-02 13:37 | DVHPN2 ---
Progress Note - Dictate Date Seen: Dec 02, 2024 Has the PT tested + for MRSA If YES, has PT been informed?: No Medical Necessity Reason Pt with a Central, PICC or Fol: No Subjective Patient seen and examined at the bedside within telemetry. Denies shortness of breath/chest pain. Hemodynamically stable. WBC count now normal. Chart reviewed. vital signs Vital Sign Date Time Temp Pulse Resp B/P (MAP) Pulse Ox O2 Delivery O2 Flow Rate FiO2 12/02/24 13:00 97.4 77 17 132/76 (94) 97 97.4 12/02/24 08:05 Room Air* 0 21 Total Intake and Output 12/01/24 12/01/24 12/02/24 15:00 23:00 07:00 Intake Total 130 ml 605 ml 200 ml Output Total 600 ml 420 ml Balance 130 ml 5 ml -220 ml medications Current Medications Medications Dose Ordered Sig/Naveen Route Start Time Stop Time Status Last Admin Dose Admin Finasteride 5 mg DAILY PO 11/28/24 10:00 12/02/24 08:47 5 MG Tamsulosin HCl 0.4 mg DAILY PO 11/28/24 10:00 12/02/24 08:47 0.4 MG Patient Own Medication 1 cap DAILY PO 11/28/24 10:00 Hold Losartan Potassium 100 mg DAILY PO 11/28/24 10:00 12/02/24 08:48 100 MG Pantoprazole Sodium 40 mg DAILY PO 11/28/24 10:00 12/02/24 08:47 40 MG Vancomycin HCl 0 ml @ 0 mls/hr UD IV 11/27/24 17:00 Piperacillin Sod/ Tazobactam Sod 100 ml @ 25 mls/hr Q8H IV 11/27/24 17:30 12/02/24 08:47 25 MLS/HR Sodium Chloride 1,000 ml @ 75 mls/hr [id number] IV 11/27/24 17:00 11/27/24 18:07 75 MLS/HR Diagnostic Test (Pha) 1 strip Q6HR 11/27/24 18:00 12/02/24 12:06 1 STRIP Insulin Human Regular Q6HR SC 11/27/24 18:00 12/02/24 12:07 4 UNITS Dextrose 50 ml UD PRN IV 11/27/24 17:00 Acetaminophen/ Hydrocodone Bitart 1 tab Q4HP PRN PO 11/27/24 17:00 12/01/24 00:44 1 TAB Ondansetron HCl 4 mg Q4HP PRN IV 11/27/24 17:00 Acetaminophen 650 mg Q6HP PRN PO 11/27/24 17:00 Morphine Sulfate 2 mg Q4HPRN PRN IV 11/27/24 17:00 11/30/24 19:55 2 MG Nitroglycerin 0.4 mg Q5MINP PRN SL 11/28/24 02:30 Morphine Sulfate 2 mg Q30M PRN IV 11/28/24 02:30 11/28/24 02:39 2 MG Colchicine 0.6 mg Q12HR PO 11/29/24 22:00 12/02/24 08:47 0.6 MG Sodium Chloride 10 ml QSHIFT@10,22 IV 12/01/24 22:00 12/01/24 22:01 10 ML Vancomycin HCl 250 ml @ 250 mls/hr Q24H IV 12/01/24 22:00 12/01/24 22:40 250 MLS/HR laboratory and microbiology Laboratory Tests 12/02/24 05:18 Test 12/02/24 05:18 Range/Units Serum Glucose 166 H 74-106 mg/dL Assessment/Plan ASSESSMENT: This is a 59-year old male known outside to our practice who initially presented with RLQ abdominal pain found to have acute cholecystitis subsequently admitted to the telemetry unit currently undergoing surgical evaluation in addition to concurrent IV antibiotic therapy. It is of note patient recently underwent evaluation at this facility where he was found to have a large circumferential pericardial effusion which he underwent pericardiocentesis for (10/14/2024) however despite the aforementioned, patient still had a residual large effusion that could not be drained secondary to presence of septations and loculations subsequently transferred to [facility] at [facility] where he underwent pericardial window placement by Dr. Sharif. At present, repeat Echocardiogram (11/27/2024) was performed revealing presence of a ucvgefoh-vr-ckumq pericardial effusion surrounding the left ventricular posterior and lateral pimentel with no evidence of tamponade physiology based on mitral and tricuspid Doppler inflows. Upon arrival, initial 12-lead electrocardiogram was performed revealing sinus tachycardia at 119 bpm with no acute ischemic changes. Initial HS troponin level was found unremarkable at 7, with subsequent trend of 8, 23, and 54. Chest imaging revealed no evidence for acute cardiopulmonary abnormalities. Initial creatinine level of 1.44 with subsequent trend to 1.23. Current A1C level of 7.0. Patient did undergo ischemic workup by Latesha scan (11/14/2023) revealing normal LV perfusion. At present time of consultation, telemetry reveals sinus rhythm. Remains hemodynamically stable with no evidence for hypotension nor tachypnea. Denies chest pains, shortness of breath, palpitations, dizziness, syncope, or any further cardiac related symptoms. As the patient presented with acute cholecystitis in presence of a pericardial effusion, Cardiology services have now been involved by primary team request for cardiac aspects of care Past medical history includes previous pericardial effusion status post pericardiocentesis (10/14/2024) with subsequent pericardial window performed at [facility] (10/14/2024), cerebral vascular accident with residual right hemiparesis (2020), diabetes mellitus II, peripheral neuropathy, hyperlipidemia, hypertension, benign prostatic hypertrophy, gouty arthritis, and rheumatoid arthritis Echocardiogram: (10/14/2024) revealed there is a large circumferential pericardial effusion. Mildly reduced left ventricular systolic function estimated ejection fraction of 50%. There is global wall hypokinesia. Aaax-sm-evkkyqsy concentric left ventricular hypertrophy. Normal right ventricular size and dimension. There is a mild diastolic collapse seen of the right ventricular free wall. suggestive of increased intrapericardial pressure. Clinical correlation is required to rule out cardiac tamponade. Mitral and tricuspid Doppler spectral flow not changed dramatically with respirations, indicating likely no evidence of pericardial tamponade. Normal biatrial size and dimension. Normal aortic valve structure and function. Normal mitral valve structure and function. Normal tricuspid valve structure and function. The pulmonary valve is grossly normal. No pericardial effusion. Echocardiogram: (11/27/2024) revealed Kensueir-jp-rylsg pericardial effusion surrounding the left ventricular posterior and lateral pimentel.No evidence of tamponade physiology based on mitral and tricuspid Doppler inflows. Patient is tachycardic the time of the study with heart rate 120 beats per minute. Prior echo from September of 2024 showed very large circumferential pericardial effusion Nuclear Stress Test: (11/14/2023) revealed Myocardial Perfusion: LV perfusion is normal. Ejection Fraction 75%. Overall Study Quality: Fair. TID Index: 0.91 Acute cholecystitis Pericardial effusion, without tamponade physiology History of pericardiocentesis with subsequent pericardial window (10/14/2024) Cerebral vascular accident, history of, with right hemiparesis Diabetes mellitus II, A1C of 7.0 Acute kidney injury, improving Hypertension, controlled Rheumatoid arthritis Hyperlipidemia CARDIAC SUGGESTIONS FOR MANAGEMENT: As patient presented and was found to have presence of a pericardial effusion, interventional cardiology services were involved for potential pericardiocentesis however as per interventional cardiology (Dr. Silver), it appears there is not much fluid available. The apical/subcostal window reveals almost no space at all for appropriate access to fluid. Effusion is mostly basal and lateral collection without collapsing RA or RV. There is a loculated collection laterally, which it appears to be voluminous however the apical and subcostal windows do not reveal almost any fluid at all. As there is not enough fluid amendable for pericardiocentesis recommend conservative management at this time which we will start the patient on Colchicine therapy during the interim. Latesha scan (11/14/2023 outpatient) revealed a normal LV perfusion. In observation of the aforementioned above proceed with plan of care without further intervention. Cardiac-ortega the patient is considered elevated risk for plan of undergoing moderate risk cholecystectomy under appropriate intra-operative and post-operative cardiac hemodynamic monitoring. Management of co-morbidities as per primary team Follow up General Surgery recommendations On IV antibiotics as per primary team Proceed with close rate and rhythm surveillance Proceed with close hemodynamic surveillance Proceed with optimized blood pressure control Transfuse to sustain HGB level above 7.0 Sustain Magnesium level greater than 2.0 Sustain Potassium level greater than 4.0 Follow up renal function and electrolytes Management in telemetry Follow up General Surgery recommendations Will proceed to follow from a cardiac perspective Further recommendations per clinical progression All available diagnostic labs, EKG's, and images were personally reviewed Patient's status, findings, and plan of care was reviewed and discussed with supervising physician Dr. Dixon, who is in agreement with current plan of care. Plan of care discussed with and agreed upon by patient / family / primary RN Prognosis: Guarded / Poor Thank you for allowing me to participate in the care of this patient. Further recommendations based on patients clinical course and progression, primary attending, and other consultants. Will continue to follow with primary attending. If you have any questions or concerns, please do not hesitate to contact me. A total of 75 minutes was spent reviewing the patient record, examining the patient, making a diagnostic and therapeutic plan, discussing this plan with medical personnel, following up on diagnostic studies and following the patient for clinical stability excluding any and all procedures. At least 50% of this time was spent in direct, [id number] contact. Plan discussed with: Patient (Patient, Primary RN, and Family ) Plan discussed with: Patient (Patient and Primary RN ) ANTIONE DAWSON Dec 02, 2024 13:37
--- NOTE | 2024-12-02 14:34 | DVHPN2 ---
Reviewed: Care Plan, H&P, Labs, Medications, Previous Orders, Radiology Changes from previous H/P or p: No Changes Eyes: No Pain, No Vision change, No Conjunctivae inflammation, No Eyelid inflammation, No Other, No Redness ENT: No Ear pain, No Ear discharge, No Nose pain, No Nose discharge, No Nose congestion, No Mouth pain, No Mouth swelling, No Throat pain, No Throat swelling, No Other Cardiovascular: Chest Pain; No Palpitations, No Orthopnea, No Paroxysmal Noc. Dyspnea, No Edema, No Lt Headedness, No Other Respiratory: No Cough, No Dry, No Shortness of breath, No SOB with excertion, No Wheezing, No Hemoptysis, No Pleuritic Pain, No Sputum, No Other Gastrointestinal: No Nausea, No Vomiting; Abdominal Pain; No Diarrhea, No Constipation, No Melena, No Hematochezia, No Other Musculoskeletal: No other, No neck pain, No shoulder pain; arm pain; No back pain, No hand pain, No leg pain, No foot pain Skin: No Rash, No Lesions, No Jaundice, No Bruising, No Other Objective Vitals Vital Signs Date Time Temp Pulse Resp B/P (MAP) Pulse Ox O2 Delivery O2 Flow Rate FiO2 12/02/24 13:00 97.4 77 17 132/76 (94) 97 97.4 12/02/24 08:05 Room Air* 0 21 Intake/Output Intake and Output 12/02/24 07:00 Intake Total 935 ml Output Total 1020 ml Balance -85 ml Intake Oral 930 ml IV Total 5 ml Output Urine Total 1020 ml # Voids 3 # Bowel Movements 1 Medications Current Medications Medications Dose Ordered Sig/Naveen Route Start Time Stop Time Status Last Admin Dose Admin Finasteride 5 mg DAILY PO 11/28/24 10:00 12/02/24 08:47 5 MG Tamsulosin HCl 0.4 mg DAILY PO 11/28/24 10:00 12/02/24 08:47 0.4 MG Patient Own Medication 1 cap DAILY PO 11/28/24 10:00 Hold Losartan Potassium 100 mg DAILY PO 11/28/24 10:00 12/02/24 08:48 100 MG Pantoprazole Sodium 40 mg DAILY PO 11/28/24 10:00 12/02/24 08:47 40 MG Vancomycin HCl 0 ml @ 0 mls/hr UD IV 11/27/24 17:00 Piperacillin Sod/ Tazobactam Sod 100 ml @ 25 mls/hr Q8H IV 11/27/24 17:30 12/02/24 08:47 25 MLS/HR Sodium Chloride 1,000 ml @ 75 mls/hr [id number] IV 11/27/24 17:00 11/27/24 18:07 75 MLS/HR Diagnostic Test (Pha) 1 strip Q6HR 11/27/24 18:00 12/02/24 12:06 1 STRIP Insulin Human Regular Q6HR SC 11/27/24 18:00 12/02/24 12:07 4 UNITS Dextrose 50 ml UD PRN IV 11/27/24 17:00 Acetaminophen/ Hydrocodone Bitart 1 tab Q4HP PRN PO 11/27/24 17:00 12/01/24 00:44 1 TAB Ondansetron HCl 4 mg Q4HP PRN IV 11/27/24 17:00 Acetaminophen 650 mg Q6HP PRN PO 11/27/24 17:00 Morphine Sulfate 2 mg Q4HPRN PRN IV 11/27/24 17:00 11/30/24 19:55 2 MG Nitroglycerin 0.4 mg Q5MINP PRN SL 11/28/24 02:30 Morphine Sulfate 2 mg Q30M PRN IV 11/28/24 02:30 11/28/24 02:39 2 MG Colchicine 0.6 mg Q12HR PO 11/29/24 22:00 12/02/24 08:47 0.6 MG Sodium Chloride 10 ml QSHIFT@10,22 IV 12/01/24 22:00 12/01/24 22:01 10 ML Vancomycin HCl 250 ml @ 250 mls/hr Q24H IV 12/01/24 22:00 12/01/24 22:40 250 MLS/HR Laboratory Results Laboratory Tests 12/02/24 05:18 Chemistry Test 12/02/24 05:18 Albumin 4.1 g/dL (3.2-4.8) Calcium Level 9.4 mg/dL (8.7-10.4) Total Protein 7.5 g/dL (5.7-8.2) LFT Test 12/02/24 05:18 Alanine Aminotransferase (ALT) 29 U/L (7-40) Alkaline Phosphatase 345 U/L (46-116) H Aspartate Amino Transferase (AST) 21 U/L (13-40) Total Bilirubin 0.6 mg/dL (0.2-1.0) Microbiology Microbiology Date/Time Source Procedure Growth Status 11/30/24 13:34 Blood Blood Culture - Preliminary NO GROWTH AFTER 48 HOURS OF INCUBATION. Resulted Labs and/or images reviewed: Labs reviewed by me, Image(s) reviewed by me Assessment/Plan Assessment/Plan Sepsis secondary to acute cholecystitis: Blood cultures negative, HIDA scan confirms cholecystitis, surgical consult by Dr. Kaiser appreciated, as the patient is afebrile white count is coming down and pt feels better Dr. Kaiser advised conservative management because of many complicated comorbid conditions Eating Disorder Psychologist Dr. Silver cleared for surgery moderate risk for surgery Intractable abdominal pain Ascites Hyponatremia Chest pain Diabetes Hypertension History of CVA with right hemiplegia History of Large pericardial effusion status post drainage one month ago at [facility] Patient was transferred to [facility] during the last visit for drainage of the pericardial fluid, stayed for one week in the hospital and discharged home. Gout Rheumatoid arthritis History of intubation for acute respiratory failure PICC line ordered for IV antibiotics for three weeks Shaan Lopez [phone] at bedside requesting patient to be transferred to [facility] [phone] Condition serious Time spent 50 minutes at the bed side Patient is full code Plan discussed with: Patient Date of Service: Dec 02, 2024 Billing Provider: LORIE HERNANDEZ MD Common Visit Codes: [id number] INP/OBS CARE(HIGH) LORIE HERNANDEZ MD Dec 02, 2024 14:34
--- NOTE | 2024-12-02 14:43 | DVHDS2 ---
Discharge Summary Date of Admission Nov 27, 2024 at 16:59 Date of Discharge: Dec 02, 2024 Admitting Diagnosis Abdominal pain nausea and vomiting Wounds: None Labs/Diagnostic Data: Laboratory Results Test 12/02/24 05:18 12/02/24 00:13 12/01/24 05:25 11/30/24 01:08 White Blood Count 10.0 10^3/uL (4.4-10.8) Red Blood Count 4.48 10^6/uL (4.5-5.90) Hemoglobin 11.5 g/dL (13.5-17.5) Hematocrit 36.1 % (41.0-53.0) Mean Corpuscular Volume 80.5 fL (80.0-100.0) Mean Corpuscular Hemoglobin 25.7 pg (28.0-32.0) Mean Corpuscular Hemoglobin Concent 31.9 g/dL (32.0-36.0) Red Cell Distribution Width 20.5 % (11.8-14.3) Platelet Count 352 10^3/uL (140-450) Mean Platelet Volume 7.6 fL (6.9-10.8) Neutrophils (%) (Auto) 72.9 % (37.0-80.0) Lymphocytes (%) (Auto) 20.0 % (10.0-50.0) Monocytes (%) (Auto) 4.3 % (0.0-12.0) Eosinophils (%) (Auto) 2.3 % (0.0-7.0) Basophils (%) (Auto) 0.5 % (0.0-2.0) Neutrophils # (Auto) 7.3 10 ^3/uL (1.6-8.6) Lymphocytes # (Auto) 2.0 10 ^3/uL (0.4-5.4) Monocytes # (Auto) 0.4 10 ^3/uL (0-1.3) Eosinophils # (Auto) 0.2 10 ^3/uL (0-0.8) Basophils # (Auto) 0 10 ^3/uL (0-0.2) Nucleated Red Blood Cells 0.1 % Sodium Level 135 mmol/L (136-145) Potassium Level 3.6 mmol/L (3.5-5.1) Chloride Level 101 mmol/L (98-107) Carbon Dioxide Level 24 mmol/L (20-31) Anion Gap 10 (5-15) Blood Urea Nitrogen 23 mg/dL (9-23) Creatinine 1.36 mg/dL (0.700-1.30) Glomerular Filtration Rate Calc 60 mL/min (>90) BUN/Creatinine Ratio 16.9 (10.0-20.0) Serum Glucose 166 mg/dL (74-106) Calcium Level 9.4 mg/dL (8.7-10.4) Total Bilirubin 0.6 mg/dL (0.2-1.0) Aspartate Amino Transferase (AST) 21 U/L (13-40) Alanine Aminotransferase (ALT) 29 U/L (7-40) Alkaline Phosphatase 345 U/L (46-116) Total Protein 7.5 g/dL (5.7-8.2) Albumin 4.1 g/dL (3.2-4.8) POC Glucose 184 mg/dl (70-106) Random Vancomycin Level 14.8 ug/mL (5-10) Vancomycin Level Trough 26.5 ug/mL (5-10) Test 11/28/24 03:20 11/27/24 10:34 Troponin I High Sensitivity 54 ng/L (</=54) Prothrombin Time 11.7 sec (9.3-11.8) Prothrombin Time INR 1.12 (0.9-1.15) Activated Partial Thromboplast Time 38.8 SEC (24.5-34.5) D-Dimer, Quantitative 4.02 mg/L FEU (0.0-0.49) Hemoglobin A1c 7.0 % A1C (<5.7) Other Laboratory Tests 12/02/24 05:18 Brief Hx & Hospital Course: 59-year-old male with a history of hypertension diabetes ascites history of CVA right hemiplegia history of large pericardial effusion recently drained one month ago [facility] [place] [facility] history of gout rheumatoid arthritis history of intubation for acute respiratory failure came in to the [facility] complaining of abdominal pain nausea and vomiting. Found to have acute cholecystitis by CT abdomen pelvis without contrast confirmed by HIDA scan patient was not sepsis with the elevated white count started on antibiotics . surgeon Dr. Kaiser felt patient is high risk because the previous history of pericardial effusion and advised conservative management and he discussed with the family who agreed. Seen by palliative sales clerk Dr. Silver and Dr Hanley. . Patient's white count is slowly coming down afebrile with a stable vital signs and being transferred [facility] [place] per family request for three weeks of IV antibiotics general condition stable but poor at the time of transfer. Blood cultures negative \\ Consults/Reason for consult Surgeon Dr. Clinton Cardiology Dr. Silver Operations or Procedures CT abdomen pelvis without contrast Echocardiogram HIDA scan Condition at Discharge: Fair Final Diagnosis/Problems List Sepsis secondary to acute cholecystitis: Blood cultures negative, HIDA scan confirms cholecystitis, surgical consult by Dr. Kaiser appreciated, as the patient is afebrile white count is coming down and pt feels better Dr. 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 Gout Rheumatoid arthritis History of intubation for acute respiratory failure Discharge Disposition: [facility] Discharge Instruct/Medications Diet: Cardiac 2g Na,low cholest Activity: Light activity Follow Up/Referral: Follow up with the [facility] Dr Persaud elective cholecystectomy after one month once patient is stable Medications: IV antibiotics for three weeks 35 (Time taken for discharge summary 35 minutes) Discharge Statement: "Patient was advised to return to the ER or call 911 if any headaches, dizziness, shortness of breath, chest pain, abdominal pain, bleeding, fevers, or worsening of medical condition. Patient was counseled about treatment plan, medications, possible side effects, patientverbalized understanding. All questions were answered to the best of my ability. This discharge took greater then 30 minutes in planning, reviewing documentation, counseling the patient, and discussing with other team members." ASSESSMENT ASSESSMENT Hospital Course Marginal improvement Assessment Sepsis secondary to acute cholecystitis: Blood cultures negative, HIDA scan confirms cholecystitis, surgical consult by Dr. Kaiser appreciated, as the patient is afebrile white count is coming down and pt feels better Dr. 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 Gout Rheumatoid arthritis History of intubation for acute respiratory failure Date of Service: Dec 02, 2024 Billing Provider: LORIE HERNANDEZ MD Common Visit Codes: 49576-DIQ/OBS DISCH DAY >30min LORIE HERNANDEZ MD Dec 02, 2024 14:42
== END 2024-12-02 19:30 | DRG 872 ==
LOC: ER 10:25 → OVERFLOW 16:59 → TELE 17:17 → TELE-WESTW 17:17
PROVIDERS: ATTEND Family Medicine
PROC: 02HV33Z Insertion of Infusion Device into Superior Vena Cava, Percutaneous Approach (ICD-10-PCS; principal; 2024-12-01)
PROC: B548ZZA Ultrasonography of Superior Vena Cava, Guidance (ICD-10-PCS; 2024-12-01)
DX: A41.9 Sepsis, unspecified organism (principal); K81.0 Acute cholecystitis; E87.1 Hypo-osmolality and hyponatremia; N17.9 Acute kidney failure, unspecified; R18.8 Other ascites; I31.39 Other pericardial effusion (noninflammatory); I69.951 Hemiplegia and hemiparesis following unspecified cerebrovascular disease affecting right dominant side; I10 Essential (primary) hypertension; M06.9 Rheumatoid arthritis, unspecified; M10.9 Gout, unspecified; I25.10 Atherosclerotic heart disease of native coronary artery without angina pectoris; E11.42 Type 2 diabetes mellitus with diabetic polyneuropathy; E78.5 Hyperlipidemia, unspecified; N40.0 Benign prostatic hyperplasia without lower urinary tract symptoms; Z80.42 Family history of malignant neoplasm of prostate; Z80.3 Family history of malignant neoplasm of breast; Z80.1 Family history of malignant neoplasm of trachea, bronchus and lung; Z80.0 Family history of malignant neoplasm of digestive organs; Z80.8 Family history of malignant neoplasm of other organs or systems; Z81.8 Family history of other mental and behavioral disorders; Z82.0 Family history of epilepsy and other diseases of the nervous system; Z82.3 Family history of stroke; Z82.49 Family history of ischemic heart disease and other diseases of the circulatory system; Z82.5 Family history of asthma and other chronic lower respiratory diseases; Z83.3 Family history of diabetes mellitus; Z82.62 Family history of osteoporosis
CPT/HCPCS: 36415; 36569; 71045; 74176; 76937; 78226; 80053; 80202; 82565; 82962; 83036; 84484; 85025; 85379; 85610; 85730; 87040; 93005; 93306; 96361; 96374; 96375; 97163; G0378; J1815; J2405; J2543